=== PATIENT | female | born 1990 | race Caucasian/White ===

== ENCOUNTER 2022-01-02 13:50 | Emergency (ER) | payer OTHER, SELFPAY ==
[2022-01-02 13:51] VITALS: BP 146/90; PULSE 110; RESP 18; TEMP 36.6; O2SAT 98; BMI 29.0
--- NOTE | 2022-01-02 14:02 | RAD_ITS ---
STUDY: X-RAY CHEST REASON FOR EXAM: Female, 31 years old. Chest pain TECHNIQUE: Single AP portable view of the chest. COMPARISON: None. FINDINGS: EKG electrodes are seen. The lungs are clear and expanded. There is no demonstrated pleural abnormality. Normal size heart. Normal mediastinum and jose. Normal visualized pulmonary arteries. Normal visualized aortic arch and descending thoracic aorta. Normal visualized thoracic spine. Normal visualized ribs, clavicles, and shoulders. There is no demonstrated abnormality of the visualized soft tissue structures of the upper abdomen. RAD/Chest 1 View (Portable) IMPRESSION: Normal x-ray examination of the chest. Electronically Signed: Sin Carvajal MD at 15:02 EDT ,
--- NOTE | 2022-01-02 14:02 | EKG12_ITS ---
Test Reason : HIGH BP Blood Pressure : / mmHG Vent. Rate : 098 BPM Atrial Rate : 098 BPM P-R Int : 114 ms QRS Dur : 078 ms QT Int : 334 ms P-R-T Axes : 006 049 025 degrees QTc Int : 426 ms Normal sinus rhythm Normal ECG Confirmed by CHI RAMÍREZ, CONSUELO ([id number]), editor index VERITO ORTEGA ([id number]) on 01/05/2022 1:54:04 PM Referred By: CAROLYN Confirmed By:CONSUELO MIRELES MD
--- NOTE | 2022-01-02 14:12 | EDS_ITS ---
HPI History of Present Illness Chief Complaint: Shortness of Breath Narrative Narrative: 31-year-old female currently [address] Anderson and Dr. Mcknight presenting with feelings of malaise, shortness of breath since last evening. She states that this started abruptly. She denies any chest pain. She is not had a fever or cough. No nausea or vomiting. She denies any leg swelling currently and states her legs are actually improved over the last week. Patient's blood pressures have been in the 140s and 150s systolically since last evening. Patient has a history of eclampsia and her last she was induced due to her blood pressures. She not currently on a blood pressure medication. No history of DVT/PE. PFSH PFSH Allergy/AdvReac Type Severity Reaction Status Date / Time No Known Allergies Allergy Verified 01/02/22 13:53 Social History Smoking Status: Never smoker ROS ROS ED Constitutional Constitutional ED: Denies chills or fever(s) Eyes Eyes: Denies change in vision ENT ENT ED: Denies rhinorrhea or sore throat Cardiovascular Cardiovascular: Denies chest pain or palpitations Respiratory/Chest Respiratory/Chest: Reports dyspnea Gastrointestinal Gastrointestinal: Denies abdominal pain, nausea or vomiting Genitourinary Genitourinary ED: Denies dysuria or hematuria Musculoskeletal Musculoskeletal: Denies arthralgias Integumentary Denies abscess or rash Neurologic Neurologic: Reports headache(s) Psychiatric Psychiatric: Denies anxiety or depression EXAM Physical Exam Const Vital Signs: 01/02/22 13:51 01/02/22 14:37 01/02/22 14:37 Temperature 97.8 F Temperature Source Temporal Pulse Rate 110 H Respiratory Rate 18 Respiratory Effort Short of Breath Respiratory Depth Normal Respiratory Pattern Normal Blood Pressure 146/90 H Blood Pressure Mean 108 Pulse Ox 98 Oxygen Delivery Method Room Air Room Air Room Air Positive well nourished General Appearance ED: NAD; Negative for pallor HEENT Reports moist mucous membranes atraumatic Eyes PERRL and EOMs intact bilaterally General Eye ED: Negative for pale conjunctiva or scleral icterus Resp normal respiratory effort and clear to auscultation bilaterally Auscultation: Negative for rales, rhonchi or wheezes Cardio regular rhythm Rate: tachycardic GI non-tender GI Narrative: Gravid Extremity normal to inspection General Extremety ED: Negative for edema or tenderness General Extremity: Negative for edema Neuro oriented x3 and CN's II-XII intact bilaterally Sensorium / Orientation: alert, oriented to person, oriented to place and oriented to time Speech: speech normal Psych mental status grossly normal Attitude: No agitated Mood & Affect: Negative for anxious or tearful Skin General Skin Exam: Negative for jaundice or pallor MDM MDM MDM Narrative Medical decision making narrative: Patient presenting with hypertension and shortness of breath. She is currently 5 weeks . She not had any vaginal bleeding or loss of fluid. No urinary complaints. No fever, chills. She denies any chest pain. She states has had this before with her last . I have low suspicion for PE. She is not on any antihypertensives. Patient sent to the ER for evaluation. Upon arrival obtained an EKG which is sinus rhythm with a ventricular rate of 98 bpm without signs of ischemic change or dysrhythmia. Chest x-ray on my interpretation shows no acute cardiopulmonary process and radiologist agree. CBC shows a white blood cell count 11.5 which is marginal. Hemoglobin hematocrit are stable. Platelets normal at 250. Renal function and electrolytes within normal limits. LFTs are normal. High-sensitivity troponin is 18. Urinalysis negative for infection. Patient was discussed with Dr. Anderson and she recommended giving a dose of 30 mg of Procardia p.o. Patient had just received this when I went to reevaluate her and her blood pressure was already at 126/82. Patient feeling well at this point. All labs and findings were discussed with her. Dr. Anderson will have her be discharged in the emergency room and go down to OB triage to be monitored. Patient minimal to this. Impression: 1. Dyspnea 2. Preeclampsia 3. Generalized weakness 4. Hypertension 5. 35 weeks gestation Lab Data Attestation: I reviewed the patient's lab results. Labs: Laboratory Results - last 24 hr 01/02/22 01/02/22 01/02/22 14:05 14:05 14:20 WBC 11.5 H RBC 3.81 L Hgb 11.4 L Hct 33.4 L MCV 87.7 MCH 29.9 MCHC 34.1 RDW Std Deviation 43.3 RDW Coeff of Radha 13.8 Plt Count 250 MPV 9.5 Immature Gran % (Auto) 1.100 H Neut % (Auto) 75.0 H Lymph % (Auto) 15.5 L Stanton % (Auto) 7.3 Eos % (Auto) 0.8 Baso % (Auto) 0.3 Absolute Neuts (auto) 8.7 H Absolute Lymphs (auto) 1.79 Nucleated RBC % 0 Sodium 138 Potassium 3.5 Chloride 109 H Carbon Dioxide 22.0 Anion Gap 7 BUN 6 L Creatinine 0.79 Estim Creat Clear Calc 97.48 Est GFR (MDRD) Af Amer 109 Est GFR (MDRD) Non-Af 90 BUN/Creatinine Ratio 7.6 L Glucose 113 H Calcium 9.5 Total Bilirubin 0.30 Direct Bilirubin 0.10 AST 15 ALT 16 Alkaline Phosphatase 92 Troponin I High Sens 18 Total Protein 6.6 Albumin 2.9 L Globulin 3.7 Urine Color Straw Urine Clarity Sl. Cloudy Urine pH 7.0 Ur Specific [place] 1.005 Urine Protein Negative Urine Glucose (UA) Normal Urine Ketones Negative Urine Occult Blood Negative Urine Nitrite Negative Urine Bilirubin Negative Urine Urobilinogen Normal Ur Leukocyte Esterase 100 H Urine RBC 0 SEEN Urine WBC 0-5 SEEN Ur Squamous Epith Cells 0-5 SEEN Urine Bacteria 1+ Urine Mucus 0 SEEN Radiography Diagnostic Testing: Clinical Impression(s) from Imaging Studies Chest X-Ray 01/02/22 14:02 IMPRESSION: Normal x-ray examination of the chest. Electronically Signed: Sin Carvajal MD at 15:02 EDT Reading Location ID and State: [address] [place] [address] , Service support , Discharge Plan Triage Chief Complaint: Shortness of Breath ED Provider: Kp Welch Dx/Rx/DC Orders Instructions: ED Dyspnea, Gestational Hypertension Primary Care Provider: Care Physician,No Primary Referrals: Danii Anderson MD [Med Staff - Active Staff] - As soon as possible NOT,DEFINED [NON-STAFF] - Disposition Disposition: Home, Self Care
[2022-01-02 14:20] LABS: Absolute Lymphocyte Count 1.79 X10^3/uL (0.83-4.51); Absolute Neutrophil Count 8.7 X10^3/uL (2.0-7.7); Basophil# 0.03 X10^3/uL; Basophil% 0.3 % (0-1); Eosinophil# 0.09 X10^3/uL; Eosinophils% 0.8 % (0-5); Hematocrit 33.4 % (37-47); Hemoglobin 11.4 g/dL (12.0-15.0); Lymphocyte # 1.79 X10^3/ul (0.83-4.51); Lymphocyte % 15.5 % (19-41); Mean Corp Hgb Conc 34.1 g/dL (32-36); Mean Corpuscular Hgb 29.9 pg (27.0-32.0); Mean Corpuscular Volume 87.7 fL (81-99); Mean Platelet Vol. 9.5 fl (6.2-12.0); Monocyte# 0.84 X10^3/uL; Monocyte% 7.3 % (0-10); NRBC Flagged by Analyzer 0 % (0-5); Neutrophil # 8.65 X10^3/uL (2.7-7.7); Platelet Count 250 K/mm3 (150-450); RBC Distribution Width CV 13.8 % (11.6-14.6); RBC Distribution Width SD 43.3 fl (35.1-43.9); Red Blood Count 3.81 M/mm3 (4.2-5.4); White Blood Count 11.5 K/mm3 (4.4-11.0)
[2022-01-02 14:28] LABS: Mucous, Urine 0 SEEN /hpf (<or=2+); Red Blood Cells-Urine 0 SEEN /hpf (0-5)
[2022-01-02 14:29] LABS: Color, Urine Straw (Yellow); Glucose, Dipstick Normal (Normal); Ketone-Dipstick Negative (Negative); Leukocyte Esterase-Dipstick 100 /ul (Negative); Nitrite-Dipstick Negative (Negative); Occult Blood-Urine Negative /ul (Negative); Protein-Dipstick Negative (Negative); Specific Gravity, Urine 1.005 (1.002-1.030); Urine Bilirubin Dipstick Negative (Negative); Urine Clarity Sl. Cloudy (Clear); Urine Urobilinogen Normal (Normal)
--- NOTE | 2022-01-02 14:35 | ED.RN ---
PT 35 WEEKS PRESENTS TO ER WITH SOB AND HTN. PT BP 146/90. DR AVILA MADE AWARE AND SAID TO CALL [facility]. PER WP, DR RANDLE WANTS PT CHECKED INTO ER AND A PRE-ECLAMPSIA WORKUP DONE.
[2022-01-02 14:41] LABS: AST(SGOT) 15 U/L (15-37); Alanine Aminotransfer ALT/SGPT 16 U/L (13-56); Albumin, Serum 2.9 g/dL (3.2-5.0); Alkaline Phosphatase 92 U/L (45-117); Anion Gap 7 (5-15); BUN 6 mg/dL (7-18); BUN/Creat Ratio 7.6 RATIO (10-20); Calcium,Total 9.5 mg/dL (8.5-10.1); Chloride 109 mmol/L (98-107); Creatinine, Serum 0.79 mg/dL (0.55-1.02); EST Glomerular Filtration Rate 90 mL/min (>60); Est Glom Filt Rate - Afr Amer 109 mL/min (>60); Estimated Creatinine Clearance 97.48 ml/min; Globulin 3.7 g/dL (2.2-4.2); Glucose 113 mg/dL (74-106); Potassium 3.5 mmol/L (3.5-5.1); Protein, Total 6.6 g/dL (6.4-8.2); Sodium Level 138 mmol/L (136-145); Troponin-I HS 18 pg/mL (3.0-54.0)
[2022-01-02 14:54] LABS: Squamous Epithelial Cells - UA 0-5 SEEN /hpf (5-10)
[2022-01-02 14:55] LABS: Bacteria 1+ /hpf (None Seen); White Blood Cells 0-5 SEEN /hpf (0-5)
[2022-01-02] MEDS: NIFEdipine 30 MG Tablet PO (14:55)
[2022-01-02 15:33] VITALS: BP 126/82; PULSE 96; RESP 21; O2SAT 97
[2022-01-02 16:58] LABS: Protein, Urine (Random) 9.5 mg/dL (<11.9); Protein:Creat Ratio 531 mg/g CRE (0-200)
== END 2022-01-02 15:39 | disposition home or self-care (01) ==
PROVIDERS: Obstetrics & Gynecology; Emergency Provider Student in an Organized Health Care Education/Training Program; Visit Provider Student in an Organized Health Care Education/Training Program
DX: O11.4 Pre-existing hypertension with pre-eclampsia, complicating childbirth (principal); R53.1 Weakness; R06.00 Dyspnea, unspecified; Z3A.35 35 weeks gestation of pregnancy
CPT/HCPCS: 71045; 80048; 80076; 81001; 82570; 84156; 84484; 85025; 87811; 93005; 99285; A4216

== ENCOUNTER 2022-01-02 15:48 | Outpatient (CLI) | payer OTHER, SELFPAY ==
[2022-01-02 16:03] VITALS: BP 119/75; PULSE 95
[2022-01-02 16:05] VITALS: BP 122/74; PULSE 89
[2022-01-02 16:16] VITALS: BP 122/78; PULSE 99
[2022-01-02 16:29] VITALS: BMI 29.3
[2022-01-02 16:31] VITALS: BP 121/78; PULSE 88
[2022-01-02 16:47] VITALS: BP 118/72; PULSE 89
--- NOTE | 2022-01-02 16:58 | OB.TRI.NOTE ---
HPI - General General Date of Admission: 01/02/22 Date of Service: 01/02/22 Chief Complaint: high BP HPI Narrative RITA DELGADO, is a 31 F 2 para 1 presents at 35-4/7 weeks gestation from the emergency room. She called the office today and complained of shortness of breath lightheadedness and significantly elevated blood pressure. She was sent to the emergency room because of her shortness of breath. She had a rule out PE and CHF work-up there. Blood pressures were elevated but in the mild range. Patient received 1 dose of Procardia but actually her blood pressure had come down to the normotensive range at that point. She denies any headache or visual changes she just felt kind of weak and some malaise. She reports that she felt similar to how she did when her blood pressure started going up with her previous . She denies any vaginal bleeding or leaking of fluid. She has good movement. Maternal Data Information Final HASEEB: 02/12/22 Gestational age: 35 4/7 [facility] Home Medications Aspir-81 81 mg PO/SL DAILY 01/02/22 [History Last Taken 01/01/22 21:00] 1 tab PO/SL DAILY 01/02/22 [History Last Taken 01/01/22 21:00] docusate sodium 50 mg capsule 50 mg PO DAILY 01/02/22 [History Last Taken 01/01/22 21:00] Allergy/AdvReac Type Severity Reaction Status Date / Time No Known Allergies Allergy Verified 01/02/22 16:27 Social History Smoking Status: Never smoker Physical Exam Narrative Awake, alert, no acute distress, trace edema of lower extremity. 2+ DTRs no clonus. Abdomen is soft, nontender and gravid NST FHR Rate Baby A Baseline: 140 Variability:: Moderate Accelerations:: 15 x 15 Decelerations:: None NST Reactive:: Yes FHR Category:: Category I Uterine Activity:: quiet Assessment & Plan (1) 35 weeks gestation of : PLAN: 31-year-old 2 para 1 at 35-4/7 weeks gestation. Acute respiratory and cardiac issues were ruled out in the emergency room. Patient had normotensive blood pressures here. No evidence of preeclampsia with severe features. Her urine protein creatinine ratio was elevated which suggest preeclampsia without severe features. Return if symptoms or blood pressures in severe range. Otherwise follow-up in the office for second betamethasone dose. We will give a dose of betamethasone today. Will need a growth ultrasound and close follow-up and monitoring. Patient is in agreement with this plan. (2) High risk multigravida in third trimester: (3) Pre-eclampsia in third trimester:
--- NOTE | 2022-01-02 17:05 | NURSING ---
upon discharging patient. Dr Anderson would like have pt get a dose of celestone and follow up in office tomorrow for repeat blood pressure and bioscan.
[2022-01-02] MEDS: Betamethasone/Betamethasone 30 MG/5 ML Vial 12 MG IM (17:20)
== END 2022-01-02 16:59 | disposition home or self-care (01) ==
LOC: WPOUT 15:55 → WP 15:55
PROVIDERS: Visit Provider Obstetrics & Gynecology
DX: O09.93 Supervision of high risk pregnancy, unspecified, third trimester (principal); O14.93 Unspecified pre-eclampsia, third trimester; R06.02 Shortness of breath; R03.0 Elevated blood-pressure reading, without diagnosis of hypertension; R42 Dizziness and giddiness; Z3A.35 35 weeks gestation of pregnancy
CPT/HCPCS: 59025; 59050; 96372; 99218; G0378; J0702

== ENCOUNTER 2022-01-12 09:30 | Inpatient (IN) | payer OTHER, SELFPAY ==
--- NOTE | 2022-01-09 12:38 | HP.PCM_ITS ---
History and Physical Date of Admission: 01/12/22 HPI: The patient is a 31 year old female presenting for pre-operative visit. She is scheduled for , for previous c/s and preeclampsia without severe features on 01/12/22. Procedure discussed along with risks, benefits and complications. Other alternatives discussed for management. Consent form signed? Yes. ? ? PAST MEDICAL HISTORY PAST MEDICAL HISTORY Diagnosis Date ? Gestational hypertension ? ? Placental abruption ? ? Pre-eclampsia in third trimester 01/03/2022 ? ? PAST SURGICAL HISTORY PAST SURGICAL HISTORY Procedure Laterality Date ? SNGL ? 12/05/2019 ? PAST SURGICAL HISTORY OF ? ? ? sebaceous nevus on scalp ? TONSILLECTOMY & ADENOIDECTOMY AGE 12/> ? CURRENT MEDICATIONS Current Outpatient Medications Medication Sig Dispense Refill ? aspirin, enteric coated (ECOTRIN LOW STRENGTH) 81 mg EC tablet Take 1 tablet by mouth once daily. ? ? ? vit [id number] (PRENATE MINI, FERR ASP GLYCIN,) 18-1-350 mg cap Take 1 Dose by mouth once daily. 30 capsule 12 ? Breast Pump Use as directed (Patient not taking: No sig reported) 1 Each 0 ? No current facility-administered medications for this visit. ? ? ALLERGIES: Patient has no known allergies. ? PERSONAL HISTORY: SOCIAL HISTORY Social History ? Tobacco Use ? Smoking status: Never ? Smokeless tobacco: Never Vaping Use ? Vaping Use: Never used Substance Use Topics ? Alcohol use: No ? Drug use: No ? FAMILY HISTORY: FAMILY HISTORY FAMILY HISTORY Problem Relation Age of Onset ? No Known Problems Mother ? ? Asthma Father ? ? No Known Problems Brother ? ? No Known Problems Brother ? ? Cancer Maternal Grandmother ? ? Heart Maternal Grandfather ? ? Heart Paternal Grandfather ? ? ? REVIEW OF SYMPTOMS: GENERAL: denies fevers or chills ENDOCRINOLOGY: has not been on steroids Cardiology : denies palpitations or chest pain Respiratory: denies SOB or cough Hematology: denies history of prolonged bleeding or easy bruising or VTE Allergy: Denies history of personal or family history of allergy to anesthesia ? PHYSICAL EXAMINATION: ? VITALS: Last menstrual period 04/28/2021. ? GENERAL: The patient is well nourished, well hydrated in no acute distress. , The patient is oriented to time, place, and person. NECK: Supple. No lynphadenopathy, normal thyroid, no thyromegaly. LUNGS: Clear to auscultation bilaterally. no wheezes, rhonchi or rales HEART: Regular rate and rhythm, Normal heart sounds, and No murmurs or gallops ? IMPRESSION: Estimated Date of Delivery: 02/02/22 ? PLAN: The risks/benefits/alternatives and personal involved for the planned c- section were reviewed with the patient. Her questions were answered to her satisfaction and she desires to proceed. Consent was signed. I reviewed with her postop instructions and expectations. ? ? I have reviewed and updated past medical and surgical history, medications and allergies Assessment & Plan Assessment/Plan (1) 37 weeks gestation of : (2) Pre-eclampsia in third trimester: (3) High risk multigravida in third trimester: (4) Previous delivery affecting :
[2022-01-12] VITALS (15 sets, daily range): BP systolic 104–128; BP diastolic 56–78; PULSE 81–98; RESP 16–18; TEMP 36.4–37.1; O2SAT 16–100; BMI 28.8
[2022-01-12] MEDS: Lactated Ringers 1,000 ML 999 ML IV (10:00)
[2022-01-12 10:14] LABS: Absolute Lymphocyte Count 1.88 X10^3/uL (0.83-4.51); Basophil# 0.02 X10^3/uL; Basophil% 0.2 % (0-1); Eosinophil# 0.06 X10^3/uL; Eosinophils% 0.5 % (0-5); Hematocrit 33.6 % (37-47); Hemoglobin 11.4 g/dL (12.0-15.0); Lymphocyte # 1.88 X10^3/ul (0.83-4.51); Lymphocyte % 16.3 % (19-41); Mean Corp Hgb Conc 33.9 g/dL (32-36); Mean Corpuscular Hgb 30.1 pg (27.0-32.0); Mean Corpuscular Volume 88.7 fL (81-99); Mean Platelet Vol. 9.8 fl (6.2-12.0); Monocyte# 0.47 X10^3/uL; Monocyte% 4.1 % (0-10); NRBC Flagged by Analyzer 0 % (0-5); Neutrophil # 8.95 X10^3/uL (2.7-7.7); Neutrophil % 77.4 % (47-70); Platelet Count 234 K/mm3 (150-450); RBC Distribution Width SD 44.7 fl (35.1-43.9); Red Blood Count 3.79 M/mm3 (4.2-5.4); White Blood Count 11.6 K/mm3 (4.4-11.0)
[2022-01-12] MEDS: Lactated Ringers 1,000 ML 150 ML IV (10:59)
[2022-01-12] MEDS: Acetaminophen 500 MG Tablet 1000 MG PO ×2 (11:01→17:57)
[2022-01-12] MEDS: Sodium Citrate/Citric Acid 30 ML UDC PO (11:52)
[2022-01-12] MEDS: Cefazolin 2 GM in 0.9% Normal Saline 100 ML IV (12:06)
--- NOTE | 2022-01-12 12:56 | OP.PCM_ITS ---
Assessment & Plan (1) 37 weeks gestation of : (2) Previous delivery affecting : (3) Pre-eclampsia in third trimester: Maternal Data Information Final HASEEB: 02/02/22 Gestational age: 37 0/7 Details Operative Information Date of Procedure: 01/12/22 Pre-Operative Diagnosis: preeclampsia without severe features Indications for : Repeat Elective Classification: Scheduled Procedure Type: low transverse equal opportunity assistant #1: Noemí Dumont equal opportunity assistant #2: Lazaro GRANADO Type of Anesthesia: Spinal Anesthesiologist: Anuj Wick Special Medications: duramorph Antibiotic Given: Ancef 2 grams IV x1 Drain: Salazar to straight drain Estimated Blood Loss: 800 Fluids Replaced: 1000 Procedure Start Time: 12:27 Procedure Stop Time: 13:01 Time of Delivery: 12:31 Findings Description of Procedure: The patient was taken to the operating room. She was prepped and draped in the dorsal supine position with a leftward tilt. A Pfannenstiel skin incision was made approximately 2 cm above the symphysis pubis and carried through to underlying layer fascia with the scalpel. The fascia was incised incised in the midline and extended laterally with the Neumann scissors. The fascia was dissected off the rectus muscles with blunt and sharp dissection. The rectus muscles were in the midline and the peritoneum was entered bluntly. The peritoneal incision was stretched and the bladder blade was placed. The uterine incision was made in a low transverse fashion with the scalpel and extended superiorly and inferiorly with blunt dissection. The amniotic membranes were ruptured bluntly and clear amniotic fluid returned. The infant's head was brought to the incision in the flexed position and delivered without difficulty. The remainder of the was delivered with gentle traction and fundal pressure in the standard fashion. The mouth and nares were bulb suctioned. The cord was clamped and cut as the infant was stimulated. Cord clamping was delayed. The infant was handed off to the waiting nursing staff. The placenta was delivered with fundal massage and gentle traction in the standard fashion. The uterus was exteriorized and cleared of all clots and debris. The cervix was dilated with a ring forcep. The uterine incision was closed with #1 Vicryl in a running locked fashion. A second layer of the same suture was used in an imbricating fashion. Several [id number] #1 Vicryl sutures were needed to obtain hemostasis and some bleeding sinuses. The incision was examined and was found to be hemostatic. The uterus was placed back into the peritoneal cavity and hemostasis was again confirmed. The rectus muscles were examined and any bleeding was Bovie caute rized. The parietal peritoneum and rectus muscles were closed en bloc with an 0 Vicryl running suture. The surgical teams outer gloves were then changed. The rectus fascia was examined and any bleeding was Bovie cauterized and the rectus fascia was closed with 1 Vicryl suture in a running standard fashion. The subcutaneous tissue was examining and any bleeding was Bovie cauterized. The subcutaneous tissue was reapproximated with 3-0 Vicryl suture. The skin was closed in a subcuticular fashion by the CHEMICAL RADIATION TECHNICIAN with me present in the labor and delivery suite. I performed the remainder of the procedure with assistance. All sponge, lap, and needle counts were correct. The patient was taken to her room for recovery in a stable condition. Presentation: Positive for Vertex Amniotic Membrane Rupture Type: Artificial Amniotic Fluid Description: Clear Placental Delivery Description: Expressed Placenta Disposition: [facility] Specimen(s) Sent to Pathology: none Cord Vessel Description: 3 Vessels Cord Entanglement: None A Gender: Female (Meenakshi 6lb 14 oz) (1 minute): 9 (5 minute): 9 Delayed Cord Clamping: Yes Complications Complications: none Admit VTE Documentation VTE Present on Admission: No VTE Mechan Device Prophylaxis: SCD's VTE Pharm Prophylaxis Ordered: No Reason Prophylaxis Not Ordered: Procedure Not Indicated
[2022-01-12] MEDS: Oxytocin 30 units/NS 500 ml 30 UNITS/500 ML IV.SOLN 167 UNITS IV (13:27)
[2022-01-12] MEDS: Ketorolac 30 MG/ML Syringe IV ×2 (13:35→19:50)
--- NOTE | 2022-01-12 15:58 | NURSING ---
Electrocautery machine [id number]
[2022-01-12] MEDS: Ondansetron 4 MG/2 ML Vial IV (16:36)
[2022-01-12] MEDS: Lactated Ringers 1,000 ML 100 ML IV (16:39)
[2022-01-13 00:45] VITALS: BP 90/50; PULSE 86; RESP 16; TEMP 36.8; O2SAT 97
[2022-01-13] MEDS: 0.9% Saline Lock 10 ML Syringe IV ×2 (01:00→06:49)
[2022-01-13] MEDS: Ketorolac 30 MG/ML Syringe IV ×2 (01:00→06:49)
[2022-01-13] MEDS: Acetaminophen 500 MG Tablet 1000 MG PO ×4 (01:00→18:32)
[2022-01-13 04:40] VITALS: BP 94/52; PULSE 77; RESP 16; TEMP 36.3; O2SAT 98
[2022-01-13 05:25] LABS: Hematocrit 26.6 % (37-47); Mean Corp Hgb Conc 33.8 g/dL (32-36); Mean Corpuscular Hgb 30.2 pg (27.0-32.0); Mean Corpuscular Volume 89.3 fL (81-99); Mean Platelet Vol. 9.5 fl (6.2-12.0); Platelet Count 194 K/mm3 (150-450); RBC Distribution Width CV 14.2 % (11.6-14.6); RBC Distribution Width SD 45.8 fl (35.1-43.9); Red Blood Count 2.98 M/mm3 (4.2-5.4); White Blood Count 14.9 K/mm3 (4.4-11.0)
[2022-01-13 08:52] VITALS: BP 116/73; PULSE 89; RESP 16; TEMP 36.6; O2SAT 98
[2022-01-13] MEDS: Senna/Docusate Sodium 1 Tablet PO (08:59)
--- NOTE | 2022-01-13 09:40 | PCM.PN.OB ---
Subjective Subjective Doing well per patient and nursing staff. Ambulating and taking PO without difficulty. Voiding and passing flatus. Pain controlled. , services for assistance. Denies headache, visual changes, chest pain, shortness of breath, leg pain or increased bleeding. Lochia normal. Objective Data Objective Data Vital Signs: Vital Signs Temp Pulse Resp BP Pulse Ox O2 Del Method 97.9 F 89 16 116/73 98 Room Air 01/13/22 08:52 01/13/22 08:52 01/13/22 08:52 01/13/22 08:52 01/13/22 08:52 01/13/22 08:52 Oxygen Delivery Method Room Air Weight: 178 lb 9.191 oz Body Mass Index (BMI) 28.8 Intake & Output: Intake and Output for Last 24 Hours 01/11/22 01/12/22 01/13/22 23:59 23:59 23:59 Intake Total 3657.5 / 3657.5 Output Total 850 / 850 1100 / 1100 Balance 2807.5 / 2807.5 -1100 / -1100 Lab / Micro Data Result Diagrams: 01/13/22 05:20 Labs: Laboratory Results - last 24 hr 01/12/22 10:00: WBC 11.6 H, RBC 3.79 L, Hgb 11.4 L, Hct 33.6 L, MCV 88.7, MCH 30.1, MCHC 33.9, RDW Std Deviation 44.7 H, RDW Coeff of Radha 14.0, Plt Count 234, MPV 9.8, Immature Gran % (Auto) 1.500 H, Neut % (Auto) 77.4 H, Lymph % (Auto) 16.3 L, [place] % (Auto) 4.1, Eos % (Auto) 0.5, Baso % (Auto) 0.2, Absolute Neuts (auto) 9.0 H, Absolute Lymphs (auto) 1.88, Nucleated RBC % 0 01/12/22 10:00: Blood Type A POSITIVE, Antibody Screen NEGATIVE 01/13/22 05:20: WBC 14.9 H, RBC 2.98 L, Hgb 9.0 L, Hct 26.6 L, MCV 89.3, MCH 30.2, MCHC 33.8, RDW Std Deviation 45.8 H, RDW Coeff of Radha 14.2, Plt Count 194, MPV 9.5 ROS Constitutional Constitutional: Reports systems reviewed and no addt'l complaints, except as documented; Denies headache(s) Eyes Eyes: Denies acute decrease in peripheral vision, blurry vision or change in vision ENT HEENT: Reports systems reviewed and no addt'l complaints, except as documented Cardiovascular Cardiovascular: Denies chest pain or dizziness Respiratory/Chest Respiratory/Chest: Denies cough, dyspnea, dyspnea on exertion, shortness of breath at rest or shortness of breath with exertion Gastrointestinal Gastrointestinal: Denies abdominal pain, diarrhea, nausea or vomiting Genitourinary Genitourinary: Denies abdominal discomfort Musculoskeletal Musculoskeletal: Denies limited range of motion Integumentary Integumentary: Reports systems reviewed and no addt'l complaints, except as documented Neurologic Neurologic: Reports systems reviewed and no addt'l complaints, except as documented Psychiatric Psychiatric: Reports systems reviewed and no addt'l complaints, except as documented Endocrine Endocrinology: Reports systems reviewed and no addt'l complaints, except as documented Hematologic/Lymphatic Hematologic/Lymphatic: Reports systems reviewed and no addt'l complaints, except as documented Allergic/Immunologic Allergic/Immunologic: Reports systems reviewed and no addt'l complaints, except as documented Physical Exam Const alert and oriented x3 General Appearance: cooperative Orientation / Consciousness: awake, oriented to person, oriented to place and oriented to time Exam Limitations: no limitations HEENT normocephalic Head and Scalp: normal to inspection, normocephalic and atraumatic Face and Sinus: normal facial exam Eyes General Eye: normal appearance of both eyes Neck full ROM Chest Chest: symmetrical chest wall rise Resp normal respiratory effort and normal air movement Auscultation: clear to auscultation bilaterally Cardio regular rate, regular rhythm, S1 normal heart sound, S2 normal heart sound, no murmurs, no rub, no gallops and no clicks GI normal to inspection, nondistended, normoactive bowel sounds and non-tender GI Narrative: Fundus firm 2 below U. Dressing dry and intact Bladder / Kidney Exam: no CVA tenderness Back/Spine normal ROM Extremity normal to inspection and full ROM Skin no rashes or lesions noted Neuro oriented x3, CN's II-XII intact bilaterally and moves all extremities Sensorium / Orientation: awake, alert and oriented to person Motor Exam: clonus absent Deep Tendon Reflexes: Rt Patellar (L4): 2+ and Lt Patellar (L4): 2+ Assessment & Plan (1) Pre-eclampsia in third trimester: (2) 37 weeks gestation of : (3) Previous delivery affecting : PLAN: Plan 1) POD #1 Repeat Section 2) Preeclampsia without severe features. BP normal range. Asymptomatic 3) Hgb 9.0, will start Ferrous Sulfate 325mg PO once daily 4) I&Os 5) Pain management
[2022-01-13 12:51] VITALS: BP 104/63; PULSE 89; RESP 16; TEMP 36.2; O2SAT 98
[2022-01-13] MEDS: Ferrous Sulfate 325 MG Tablet PO (12:55)
[2022-01-13] MEDS: Ibuprofen 600 MG Tablet PO ×2 (12:55→18:32)
[2022-01-13 20:00] VITALS: BP 107/66; PULSE 78; RESP 16; TEMP 37; O2SAT 98
[2022-01-13] MEDS: oxyCODONE 5 MG Tablet PO (23:53)
[2022-01-14] MEDS: Acetaminophen 500 MG Tablet 1000 MG PO ×2 (00:33→06:59)
[2022-01-14] MEDS: Ibuprofen 600 MG Tablet PO ×2 (00:33→06:59)
[2022-01-14 01:55] VITALS: BP 99/51; PULSE 69; RESP 16; TEMP 36.3; O2SAT 97
[2022-01-14] MEDS: oxyCODONE 5 MG Tablet PO (08:24)
[2022-01-14] MEDS: Senna/Docusate Sodium 1 Tablet PO (08:27)
[2022-01-14 08:31] VITALS: BP 109/71; PULSE 93; RESP 16; TEMP 36.8; O2SAT 97
--- NOTE | 2022-01-14 09:25 | PCM.PN.OB ---
Subjective Subjective Doing well per patient and nursing staff. Ambulating and taking PO without difficulty. Voiding and passing flatus. Pain controlled. , services for assistance. Denies headache, visual changes, chest pain, shortness of breath, leg pain or increased bleeding. Lochia normal. Objective Data Objective Data Vital Signs: Vital Signs Temp Pulse Resp BP Pulse Ox O2 Del Method 98.3 F 93 16 109/71 97 Room Air 01/14/22 08:31 01/14/22 08:31 01/14/22 08:31 01/14/22 08:31 01/14/22 08:31 01/14/22 08:31 Oxygen Delivery Method Room Air Weight: 178 lb 9.191 oz Body Mass Index (BMI) 28.8 Intake & Output: Intake and Output for Last 24 Hours 01/12/22 01/13/22 01/14/22 23:59 23:59 23:59 Intake Total 3657.5 / 3657.5 Output Total 850 / 850 1100 / 1100 Balance 2807.5 / 2807.5 -1100 / -1100 Lab / Micro Data Result Diagrams: 01/13/22 05:20 ROS Constitutional Constitutional: Reports systems reviewed and no addt'l complaints, except as documented; Denies headache(s) Eyes Eyes: Denies acute decrease in peripheral vision, blurry vision or change in vision ENT HEENT: Reports systems reviewed and no addt'l complaints, except as documented Cardiovascular Cardiovascular: Denies chest pain or dizziness Respiratory/Chest Respiratory/Chest: Denies cough, dyspnea, dyspnea on exertion, shortness of breath at rest or shortness of breath with exertion Gastrointestinal Gastrointestinal: Denies abdominal pain, diarrhea, nausea or vomiting Genitourinary Genitourinary: Denies abdominal discomfort or movement Musculoskeletal Musculoskeletal: Denies limited range of motion Integumentary Integumentary: Reports systems reviewed and no addt'l complaints, except as documented Neurologic Neurologic: Reports systems reviewed and no addt'l complaints, except as documented Psychiatric Psychiatric: Reports systems reviewed and no addt'l complaints, except as documented Endocrine Endocrinology: Reports systems reviewed and no addt'l complaints, except as documented Hematologic/Lymphatic Hematologic/Lymphatic: Reports systems reviewed and no addt'l complaints, except as documented Allergic/Immunologic Allergic/Immunologic: Reports systems reviewed and no addt'l complaints, except as documented Physical Exam Const alert and oriented x3 General Appearance: cooperative Orientation / Consciousness: awake, oriented to person, oriented to place and oriented to time Exam Limitations: no limitations HEENT normocephalic Head and Scalp: normal to inspection, normocephalic and atraumatic Face and Sinus: normal facial exam Eyes General Eye: normal appearance of both eyes Neck full ROM Chest Chest: symmetrical chest wall rise Resp normal respiratory effort and normal air movement Auscultation: clear to auscultation bilaterally Cardio regular rate, regular rhythm, S1 normal heart sound, S2 normal heart sound, no murmurs, no rub, no gallops and no clicks GI normal to inspection, nondistended, normoactive bowel sounds and non-tender appearance of the vagina normal Bladder / Kidney Exam: no CVA tenderness Back/Spine normal ROM Extremity normal to inspection and full ROM Skin no rashes or lesions noted Neuro oriented x3, CN's II-XII intact bilaterally and moves all extremities Sensorium / Orientation: awake, alert and oriented to person Motor Exam: clonus absent Deep Tendon Reflexes: Rt Patellar (L4): 2+ and Lt Patellar (L4): 2+ Assessment & Plan (1) S/P repeat low transverse : (2) Acute blood loss anemia: (3) Pre-eclampsia: PLAN: Plan 1) POD #2 repeat LTCS 2) Preeclampsia, blood pressure stable without medication. Asymptomatic 3) Pain management 4) I&Os 5) anemia, ferrous sulfate 6) follow up in 2 week for incision check and 6 week for PP visit 7) D/C home
--- NOTE | 2022-01-14 09:43 | PCM.DC.SUM ---
Providers Date of Admission: 01/12/22 Primary Care Physician: Mariya Primary Care Phys Reason For Visit: REPEAT Diagnosis Discharge Diagnosis (1) S/P repeat low transverse : Status: Acute Code(s): Z98.891 - History of uterine scar from previous surgery (2) Acute blood loss anemia: Status: Acute Code(s): D62 - Acute posthemorrhagic anemia (3) Pre-eclampsia: Status: Acute Code(s): O14.90 - Unspecified pre-eclampsia, unspecified trimester Plan 1) POD #2 repeat LTCS 2) Preeclampsia, blood pressure stable without medication. Asymptomatic 3) Pain management 4) I&Os 5) anemia, ferrous sulfate 6) follow up in 2 week for incision check and 6 week for PP visit 7) D/C home Medications at Discharge Home Medications 1 tab PO/SL DAILY 01/02/22 docusate sodium 50 mg capsule 100 mg PO DAILY PRN Constipation #60 caps 01/14/22 ferrous sulfate 325 mg (65 mg iron) tablet (FeroSul) 325 mg PO DAILY@1200 #30 tabs 01/14/22 oxycodone 5 mg tablet 5 mg PO Q6H 7 days #20 tabs 01/14/22 Hospital Course Summary of Care Provided Hospital Course: Presented on 01/12/22 for repeat LTCS with preeclampsia. Hospital course uncomplicated. acute blood loss anemia. Discharge home on POD#2 Weight / BMI Weight Weight: 178 lb 9.191 oz Body Mass Index (BMI) 28.8 ABG / Lab / Microbiology Data Result Diagrams: 01/13/22 05:20 Meaningful Use Info Meaningful Use Diagnoses (Choose all that apply): None applicable Discharge Plan Admission Admit Date/Time: 01/12/22 09:30 Primary Reason for Your Visit: Repeat section, preeclampsia Attending Provider: Danii Anderson Primary Care Provider: Care Physician,No Primary Instructions Patient Instructions: After a Discharge Orders/Prescriptions Prescriptions: New ferrous sulfate [FeroSul] 325 mg (65 mg iron) Tablet 325 mg PO DAILY@1200 Qty: 30 0RF oxycodone 5 mg Tablet 5 mg PO Q6H 7 Days Qty: 20 0RF Continued 1 tab PO/SL DAILY Changed docusate sodium 50 mg Capsule 100 mg PO DAILY PRN (Reason: Constipation) Qty: 60 0RF Discontinued Aspir-81 81 mg PO/SL DAILY Referrals / Follow Up: Care Physician,No Primary [Primary Care Provider] - Disposition Disposition (needs filled in before D/C Order can be placed): Home, Self Care
== END 2022-01-14 10:00 | disposition home or self-care (01) | DRG 787 ==
PROVIDERS: Admitting Provider Obstetrics & Gynecology; Visit Provider Obstetrics & Gynecology
PROC: 10D00Z1 Extraction of Products of Conception, Low, Open Approach (ICD-10-PCS; CPT 59514; principal; 2022-01-12 11:45)
DX: O14.04 Mild to moderate pre-eclampsia, complicating childbirth (principal); D62 Acute posthemorrhagic anemia; K21.9 Gastro-esophageal reflux disease without esophagitis; O90.81 Anemia of the puerperium; O34.219 Maternal care for unspecified type scar from previous cesarean delivery; Z79.82 Long term (current) use of aspirin; Z79.899 Other long term (current) drug therapy; Z3A.37 37 weeks gestation of pregnancy; Z37.0 Single live birth
CPT/HCPCS: 59050; 85025; 85027; 86850; 86900; 86901; 99218; J7120; A4216; G0378; J2405

== ENCOUNTER 2023-05-26 18:47 | Outpatient (CLI) | payer OTHER, SELFPAY ==
--- OUTSIDE RECORDS SUMMARY | 2023-05-26 18:53 | XMS RPT_ITS | CCD ---
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 Name Role Phone Aria Yap MD Primary Care Provider MARSHALL FOSTER Attending Unavailable YAP, ARIA K Primary Care Unavailable YAP, ARIA K Primary Care Unavailable PARVIN RANDLE Attending Unavailable YAP, ARIA K Primary Care Unavailable WISWELL, JUAN LUIS Referring Unavailable YAP, ARIA K Primary Care Unavailable YAP, ARIA K Primary Care Unavailable WISWELL, JUAN LUIS Referring Unavailable YAP, ARIA K Primary Care Unavailable WISWELL, JUAN LUIS Referring Unavailable NEYJACK PRATT Attending Unavail able YAP, ARIA K Primary Care Unavailable NEYHART GUANAKO GRANADORE Referring Unavail able YAP, ARIA K Primary Care Unavailable NEYJACK PRATT Attending Unavail able YAP, ARIA K Primary Care Unavailable NEYNELLAT GUANAKO GRANADORE Referring Unavail able PARVIN RANDLE Referring Unavailable YAP, ARIA K Primary Care Unavailable WISWELL, JUAN LUIS Attending Unavailable YAP, ARIA K Primary Care Unavailable PARVIN RANDLE Attending Unavailable YAP, ARIA K Primary Care Unavailable WISWELL, JUAN LUIS Referring Unavailable YAP, ARIA K Primary Care Unavailable NEYHART GUANAKO GRANADORE Referring Unavail able YAP, ARIA K Primary Care Unavailable NEYNELLAT VANNESA JACK Referring Unavail able PARVIN RANDLE Attending Unavailable YAP, ARIA K Primary Care Unavailable NEJACK SANTIAGO Attending Unavail able YAP, ARIA K Primary Care Unavailable PARVIN RANDLE Attending Unavailable YAP, ARIA K Primary Care Unavailable NEYNELLAT GUANAKO GRANADORE Referring Unavail able YAP, ARIA K Primary Care Unavailable YAP, ARIA K Primary Care Unavailable PARVIN RANDLE Attending Unavailable Medications Completed/Discontinued Medications Medication Drug Class(es) Dates Sig (Normalized) Sig (Original) aspirin 81 mg delayed release oral tablet (20 sources) Platelet Aggregation Inhibitor, Nonsteroidal Anti-inflammatory Drug Start: 07-24-2021 End: 01-30-2022 take 1 tablet by mouth once daily aspirin, enteric coated (ECOTRIN LOW STRENGTH) 81 mg EC tablet Indications: 12 weeks gestation of , with history of section, antepartum , Encounter for screening of mother Take 1 tablet by mouth once daily. 0 07/24/2021 01/30/2022 Discontinued Problems Active Problems Problem Classification Problem Date Documented Da te Episodic/Chronic Diabetes or abnormal glucose tolerance complicating ; childbirth; or the puerperium (6 sources) Abnormal glucose level; Translations: [Abnormal glucose complicating ] Onset: 03-28-2023 03-28-2023 Episodic Immunizations and screening for infectious disease (2 sources) Requires diphtheria, tetanus and pertussis vaccination; Translations: [Encounter for immunization] Episodic Other complications of (7 sources) High risk ; Translations: [Supervision of high risk , unspecified, second trimester] Episodic Residual codes; unclassified (1 source) Gestation period, 16 weeks; Translations: [16 weeks gestation of ] Episodic Residual codes; unclassified (2 sources) Gestation period, 20 weeks; Translations: [20 weeks gestation of ] Episodic Residual codes; unclassified (1 source) Gestation period, 24 weeks; Translations: [24 weeks gestation of ] Episodic Residual codes; unclassified (1 source) Gestation period, 28 weeks; Translations: [28 weeks gestation of ] Episodic Residual codes; unclassified (1 source) Gestation period, 29 weeks; Translations: [29 weeks gestation of ] Episodic Residual codes; unclassified (2 sources) Gestation period, 32 weeks; Translations: [32 weeks gestation of ] Episodic Residual codes; unclassified (2 sources) Gestation period, 34 weeks; Translations: [34 weeks gestation of ] Episodic Residual codes; unclassified (1 source) Gestation period, 35 weeks; Translations: [35 weeks gestation of ] Episodic Residual codes; unclassified (3 sources) Gestation period, 36 weeks; Translations: [36 weeks gestation of ] Episodic Residual codes; unclassified (1 source) Gestation period, 11 weeks; Translations: [11 weeks gestation of ] 12-05-2022 Episodic Residual codes; unclassified (1 source) Gestation period, 19 weeks; Translations: [19 weeks gestation of ] 01-30-2023 Episodic Residual codes; unclassified (1 source) Gestation period, 27 weeks; Translations: [27 weeks gestation of ] 03-27-2023 Episodic Residual codes; unclassified (1 source) 23 weeks gestation of ; Translations: [23 weeks gestation of ] Onset: 03-27-2023 Episodic Past or Other Problems Problem Classification Problem Date Documented Date Episodic/Chronic Hypertension complicating ; childbirth and the puerperium (20 sources) Pre-eclampsia; Translations: [Unspecified pre-eclampsia, third trimester] Onset: 01-03-2022 Episodic Other complications of (20 sources) Nausea and vomiting; Translations: [Vomiting of , unspecified] Onset: 06-30-2021 06-30-2021 Episodic Other complications of (12 sources) History of pre-eclampsia; Translations: [Supervision of with other poor reproductive or obstetric history, unspecified trimester] Onset: 11-01-2022 11-01-2022 Episodic Other complications of (1 source) Supervision of high risk , unspecified, second trimester; Translations: [Supervision of high risk in second trimester] Onset: 01-30-2023 Episodic Other complications of (1 source) Maternal care for other known or suspected poor growth, unspecified trimester, not applicable or unspecified; Translations: [ affected by intrauterine growth restriction (IUGR)] Onset: 12-05-2022 Episodic Other complications of (1 source) Supervision of with other poor reproductive or obstetric history, unspecified trimester; Translations: [H/O pre-eclampsia in prior , currently ] Onset: 11-01-2022 Episodic Other infections; including parasitic (20 sources) Personal history of other infectious and parasitic diseases; Translations: [History of COVID-19] Onset: 06-15-2021 06-15-2021 Episodic Other and delivery including normal (10 sources) Normal ; Translations: [Encounter for supervision of other normal , second trimester] Onset: 11-05-2022 Episodic Other screening for suspected conditions (not mental disorders or infectious disease) (4 sources) Patient encounter status; Translations: [Encounter for other specified screening] Onset: 12-05-2022 Episodic Previous (20 sources) ; Translations: [Maternal care for unspecified type scar from previous delivery] Onset: 06-15-2021 Episodic Residual codes; unclassified (20 sources) History of gestational hypertension; Translations: [Personal history of other complications of , childbirth and the puerperium] Onset: 06-15-2021 06-15-2021 Episodic Residual codes; unclassified (20 sources) Family history of fragile X syndrome; Translations: [Family history of other congenital malformations, deformations and chromosomal abnormalities] Onset: 06-15-2021 06-15-2021 Episodic Residual codes; unclassified (10 sources) Family history of cystic fibrosis; Translations: [Family history of other endocrine, nutritional and metabolic diseases] Onset: 11-01-2022 11-01-2022 Episodic Residual codes; unclassified (1 source) Personal history of other complications of , childbirth and the puerperium; Translations: [History of pre-eclampsia] Onset: 12-05-2022 Episodic Urinary tract infections (20 sources) Urinary tract infection caused by Enterococcus; Translations: [Urinary tract infection, site not specified] Onset: 07-03-2021 07-03-2021 Episodic Results Test Name Value Interpretation Reference Range Facil ity Vital Signs Date Time Vital Sign Value Performing Clinician Patricia horan 05-09-2023 09:58-0500 Body weight 78.38 kg Marshall Foster MD Work Phone: [facility] 05-09-2023 09:58-0500 Diastolic blood pressure 50 mm[Hg] Marshall Foster MD Work Phone: [facility] 05-09-2023 09:58-0500 Systolic blood pressure 92 mm[Hg] Marshall Foster MD Work Phone: [facility] 03-27-2023 08:46-0400 Body weight 76.2 kg Parvin Randle MD Work Phone: [facility] 03-27-2023 08:46-0400 Diastolic blood pressure 58 mm[Hg] Parvin Randle MD Work Phone: [facility] 03-27-2023 08:46-0400 Systolic blood pressure 106 mm[Hg] Parvin Randle MD Work Phone: [facility] 01-30-2023 10:22-0400 Body weight 73.03 kg Parvin Randle MD Work Phone: [facility] 01-30-2023 10:22-0400 Diastolic blood pressure 72 mm[Hg] Parvin Randle MD Work Phone: [facility] 01-30-2023 10:22-0400 Systolic blood pressure 108 mm[Hg] Parvin Randle MD Work Phone: [facility] 01-02-2023 11:16-0400 Body weight 73.48 kg Parvin Randle MD Work Phone: [facility] 01-02-2023 11:16-0400 Diastolic blood pressure 68 mm[Hg] Parvin Randle MD Work Phone: [facility] 01-02-2023 11:16-0400 Systolic blood pressure 102 mm[Hg] Parvin Randle MD Work Phone: [facility] 01-30-2022 11:29-0400 Body weight 74.3 kg Parvin Randle MD Work Phone: [facility] 01-30-2022 11:29-0400 Diastolic blood pressure 60 mm[Hg] Parvin aRndle MD Work Phone: [facility] 01-30-2022 11:29-0400 Systolic blood pressure 102 mm[Hg] Parvin Randle MD Work Phone: [facility] 01-09-2022 11:36-0400 Body weight 80.29 kg Parvin Randle MD Work Phone: [facility] 01-09-2022 11:36-0400 Diastolic blood pressure 80 mm[Hg] Parvin Randle MD Work Phone: [facility] 01-09-2022 11:36-0400 Heart rate 110 /min Parvin Randle MD Work Phone: [facility] 01-09-2022 11:36-0400 Systolic blood pressure 124 mm[Hg] Parvin Randle MD Work Phone: [facility] 01-05-2022 10:15-0400 Body weight 81.38 kg Juan Luis Denson MD Work Phone: [facility] 01-05-2022 10:15-0400 Diastolic blood pressure 60 mm[Hg] Juan Luis Denson MD Work Phone: [facility] 01-05-2022 10:15-0400 Systolic blood pressure 120 mm[Hg] Juan Luis Denson MD Work Phone: [facility] 01-03-2022 15:14-0400 Diastolic blood pressure 64 mm[Hg] Jack Granado MD Work Phone: [facility] 01-03-2022 15:14-0400 Systolic blood pressure 110 mm[Hg] Jack Granado MD Work Phone: [facility] 12-22-2021 08:35-0400 Body weight 82.1 kg Parvin Randle MD Work Phone: [facility] 12-22-2021 08:35-0400 Diastolic blood pressure 60 mm[Hg] Parvin Randle MD Work Phone: [facility] 12-22-2021 08:35-0400 Systolic blood pressure 108 mm[Hg] Parvin Randle MD Work Phone: [facility] 12-08-2021 10:11-0400 Body weight 80.74 kg Jack Granado MD Work Phone: [facility] 12-08-2021 10:11-0400 Diastolic blood pressure 64 mm[Hg] Jack Granado MD Work Phone: [facility] 12-08-2021 10:11-0400 Systolic blood pressure 112 mm[Hg] Jack Granado MD Work Phone: [facility] 11-23-2021 09:42-0400 Body weight 78.93 kg Jack Granado MD Work Phone: [facility] 11-23-2021 09:42-0400 Diastolic blood pressure 58 mm[Hg] Jack Granado MD Work Phone: [facility] 11-23-2021 09:42-0400 Systolic blood pressure 110 mm[Hg] Jack Granado MD Work Phone: [facility] 11-10-2021 11:18-0400 Body weight 77.56 kg Parvin Randle MD Work Phone: [facility] 11-10-2021 11:18-0400 Diastolic blood pressure 60 mm[Hg] Parvin Randle MD Work Phone: [facility] 11-10-2021 11:18-0400 Systolic blood pressure 112 mm[Hg] Parvin Randle MD Work Phone: [facility] 10-13-2021 10:55-0400 Body weight 74.39 kg Jack Granado MD Work Phone: [facility] 10-13-2021 10:55-0400 Diastolic blood pressure 60 mm[Hg] Jack Granado MD Work Phone: [facility] 10-13-2021 10:55-0400 Systolic blood pressure 100 mm[Hg] Jack Granado MD Work Phone: [facility] 09-18-2021 14:42-0400 Body weight 73.03 kg Parvin Randle MD Work Phone: [facility] 09-18-2021 14:42-0400 Diastolic blood pressure 60 mm[Hg] Parvin Randle MD Work Phone: [facility] 09-18-2021 14:42-0400 Systolic blood pressure 112 mm[Hg] Parvin Randle MD Work Phone: [facility] 08-21-2021 16:17-0400 Body weight 72.12 kg Parvin Randle MD Work Phone: [facility] 08-21-2021 16:17-0400 Diastolic blood pressure 60 mm[Hg] Parvin Randle MD Work Phone: [facility] 08-21-2021 16:040 Systolic blood pressure 102 mm[Hg] Parvin Randle MD Work Phone: [facility] Encounters Encounter Date Encounter Type Care Provider Facility Start: 05-23-2023 End: 05-23-2023 ambulatory [facility] Facility:[facility] Start: 05-12-2023 Mindi Moctezuma Work Phone: OB/Gynecology Procedures Date Procedure Procedure Detail Performing Clinician Start: 05-09-2023 URINE OB DIP B/O Marshall Foster MD Work Phone: Start: 04-25-2023 Us preg uterus after 1st trimest 05/27 gestation Parvin Randle MD Work Phone: Start: 03-27-2023 URINE OB DIP B/O Kirk Randle MD Work Phone: Start: 01-30-2023 URINE OB DIP B/O Kirk Randle MD Work Phone: Start: 01-02-2023 Antibody screen MARSHALL FOSTER Plan of Treatment Date Care Activity Detail Author Start: 03-27-2033 Urine microalbumin profile DTaP,Tdap,Td Vaccine (10 - Td or Tdap) [facility] Start: 11-11-2031 Urine microalbumin profile DTAP,TDAP,TD (8 - Td or Tdap) [facility] Start: 02-10-2026 HPV TESTING HPV TESTING [facility] Start: 02-10-2026 PAP TESTING PAP TESTING [facility] Start: 02-10-2026 Screening for malignant neoplasm of cervix [facility] Start: 03-27-2023 End: 03-27-2024 OBSTETRIC ULTRASOUND [facility] OBSTETRIC ULTRASOUND [facility] Anc Imaging Routine 27 weeks gestation of Need for vaccination Supervision of other high risk pregnancies, third trimester Expected: 03/27/2023, Expires: 03/27/2024 [facility] Work Phone: Immunizations Immunization Date Immunization Notes Care Provider Fa keren 04-25-2023 respiratory syncytia l virus (RSV) vaccine, bivalent (ABRYSVO) Ob Ultrasound Work Phone: [facility] 03-27-2023 tetanus toxoid, redu osman diphtheria toxoid, and acellular pertussis vaccine, adsorbed Parvin Randle MD Work Phone: [facility] Work Phone: 02-27-2023 influenza, injectabl e, quadrivalent, contains preservative Parvin Randle MD Work Phone: [facility] 11-10-2021 tetanus toxoid, redu osman diphtheria toxoid, and acellular pertussis vaccine, adsorbed Parvin Randle MD Work Phone: [facility] 10-19-2020 COVID-19 vaccine, ag e 12+ yr (PFIZER-BIONTECH - PURPLE TOP) Parvin Randle MD Work Phone: [facility] 09-28-2020 COVID-19 vaccine, ag e 12+ yr (PFIZER-BIONTECH - PURPLE TOP) Parvin Randle MD Work Phone: [facility] 07-30-2018 influenza, injectabl e, quadrivalent, preservative free Ob Ultrasound Work Phone: [facility] 07-30-2018 tetanus toxoid, redu osman diphtheria toxoid, and acellular pertussis vaccine, adsorbed Ob Ultrasound Work Phone: [facility] 07-30-2018 zoster vaccine recombinant Ob Ultrasound Work Phone: [facility] 12-21-2009 human papilloma viru s vaccine, quadrivalent Parvin Randle MD Work Phone: [facility] Work Phone: 12-21-2009 varicella virus vaccine Vira Randle MD Work Phone: [facility] Work Phone: 08-19-2009 HPV, unspecified formulation Parvin Randle MD Work Phone: [facility] Work Phone: 08-18-2009 varicella virus vaccine Vira Randle MD Work Phone: [facility] Work Phone: 06-01-2009 HPV, unspecified formulation Parvin Randle MD Work Phone: [facility] Work Phone: 06-01-2009 meningococcal polysaccharide (groups A, C, Y and W-135) diphtheria toxoid conjugate vaccine (MCV4P) Parvin Randle MD Work Phone: [facility] Work Phone: 06-01-2009 tetanus toxoid, redu osman diphtheria toxoid, and acellular pertussis vaccine, adsorbed Parvin Randle MD Work Phone: [facility] Work Phone: 05-10-2009 novel Influenza-H1N1 -09, live virus for nasal administration Parvin Randle MD Work Phone: [facility] Work Phone: 03-22-2000 hepatitis B vaccine, pediatric or pediatric/adolescent dosage Parvin Randle MD Work Phone: [facility] Work Phone: 09-11-1999 hepatitis B vaccine, pediatric or pediatric/adolescent dosage Parvin Randle MD Work Phone: [facility] Work Phone: 07-26-1999 hepatitis B vaccine, pediatric or pediatric/adolescent dosage Parvin Randle MD Work Phone: [facility] Work Phone: 07-24-1996 diphtheria, tetanus toxoids and acellular pertussis vaccine, unspecified formulation Parvin Randle MD Work Phone: [facility] Work Phone: 07-24-1996 measles, mumps and rubella virus vaccine Parvin Randle MD Work Phone: [facility] Work Phone: 07-24-1996 trivalent poliovirus vaccine, live, oral Parvin Randle MD Work Phone: [facility] Work Phone: 04-13-1993 diphtheria, tetanus toxoids and acellular pertussis vaccine, unspecified formulation Parvin Randle MD Work Phone: [facility] Work Phone: 04-13-1993 trivalent poliovirus vaccine, live, oral Parvin Randle MD Work Phone: [facility] Work Phone: 07-28-1992 haemophilus influenz ae type b vaccine, conjugate unspecified formulation Parvin Randle MD Work Phone: [facility] Work Phone: 07-28-1992 measles, mumps and rubella virus vaccine Parvin Randle MD Work Phone: [facility] Work Phone: 1991 diphtheria, tetanus toxoids and pertussis vaccine Parvin Randle MD Work Phone: [facility] Work Phone: 1991 haemophilus influenz ae type b vaccine, conjugate unspecified formulation Parvin Randle MD Work Phone: [facility] Work Phone: 1991 diphtheria, tetanus toxoids and pertussis vaccine Parvin Randle MD Work Phone: [facility] Work Phone: 1991 haemophilus influenz ae type b vaccine, conjugate unspecified formulation Parvin Randle MD Work Phone: [facility] Work Phone: 1991 trivalent poliovirus vaccine, live, oral Parvin Randle MD Work Phone: [facility] Work Phone: 1991 diphtheria, tetanus toxoids and pertussis vaccine Parvin Randle MD Work Phone: [facility] Work Phone: 1991 haemophilus influenz ae type b vaccine, conjugate unspecified formulation Parvin Randle MD Work Phone: [facility] Work Phone: 1991 trivalent poliovirus vaccine, live, oral Parvin Randle MD Work Phone: [facility] Work Phone: Payers Date Payer Category Payer Unknown [id number] 2021 Private Health Insurance [employer] PPO [id number] 2021-Present [phone] [address] [facility] [place] [address] PPO [id number] 2021 Private Health Insurance [id number] Social History Date Type Detail Facility Start: 07-31-2011 End: 01-30-2022 Tobacco smoking status NHIS Never smoked tobacco [facility] Work Phone: Start: 08-21-2021 End: 05-09-2023 Alcohol intake Current non-drinker of alcohol (finding) [facility] Start: 06-15-2021 Education 17 [facility] Start: 05-12-2021 [facility] Start: 1990 Sex Assigned At Not on file [facility] Start: 08-11-2021 End: 01-09-2022 Exposure to SARS-CoV-2 (event) Not sure [facility] Start: 07-31-2011 End: 01-30-2022 Tobacco use and exposure Smokeless tobacco non-user [facility] Start: 11-01-2022 End: 11-05-2022 History of Social function [facility] Start: 11-01-2022 End: 11-05-2022 Tobacco use panel [facility] National Score (1-100), lower number is lower risk 56 [facility] Start: 06-25-2021 Gender identity Identifies as female gender (finding) [facility] Goals Date Patient Goal Desired Activity /State Personal health goal Clinical Notes 07-31-2011 to 05-13-2023 Telephone Encounter - Celia Saunders RN - 05/13/2023 8:33 AM ESTPrenatal Quick Notes - Marshall Foster MD - 05/09/2023 10:16 AM ESTPatient InstructionsPatient InstructionsPatient Instructions Note Date & Type Note Facility 05-13-2023 Miscellaneous Notes Formattin g of this note is different from the original. 34w4d Requested Prescriptions Pending Prescriptions Disp Refills 28 mg iron- 800 mcg tab [Pharmacy Med Name: VITAMINS TABLET] 30 tablet 6 Sig: take 1 tablet by mouth every day Celia Saunders, RN documented in this encounter [facility] 05-09-2023 Miscellaneous Notes Formattin g of this note might be different from the original. KJ - VB No. LOF No. CTXS No. Movement: present. Other c/o: heartburn not relieved by tums Medication list reviewed. Physical Exam See Flow Sheet Gen: no accute distress, well appearing Abd: soft, nontender, gravid A/P 34w0d Estimated Date of Delivery: 06/20/23 GERD - rx pepcid & advised on diet PTL precautions reviewed, Kick counts reviewed. Marshall Foster MD documented in this encounter [facility] 05-09-2023 Instructions s Deidre York - 05/09/2023 9:54 AM EST SEQUENTIAL SCREENINGS The [facility] offers sequential screenings for women who are interested in screenings for chromosomal abnormalities and certain defects during a . The sequential screen combines ultrasound and blood tests to determine the risk of chromosomal abnormalities, including Down's Syndrome (Trisomy 21) and Trisomy 18, as well as open neural tube defects including spina bifida. Ultrasound examination is performed between 11 weeks and 13 weeks gestational age. Blood tests are drawn after the ultrasound and again later in the between 15 and 21 weeks gestational age. Please let your physician know if you are interested in this testing. It will require an appointment with our telecommunication tower technician. This is not an ultrasound performed by a physician in our office during a routine visit. SIGNS AND SYMPTOMS OF LABOR 1. Contractions every 10 minutes or more often 2. Clear, pink, or brownish fluid (water) leaking from vagina 3. Feeling that baby is pushing down, pressure 4. Low, dull backache 5. Cramps that feel like a period 6. Cramps with or without diarrhea If you notice any of the above symptoms, contact our office at [phone] and ask to speak with a nurse. After hours, you can call doctors registry at [phone] OR call [facility] at [phone] and ask to have the doctor shock absorption floor layer paged. If you consider this an emergency, dial 9--1 or go to your nearest emergency department. NEED HELP? Are you dealing with a violent or abusive relationship? Are you a victim of rape or sexual assult? Call [facility] ([place]) 24 hour Crisis Hotline: 491.262.4252 or 160-073-9917. MANUAL Your Guide to a Healthy manual is now on-line. Visit [email or web address] to download your free copy documented in this encounter [facility] 05-06-2023 Miscellaneous Notes Formattin g of this note might be different from the original. Order signed and faxed. Gely Munoz RN Breast pump order received from [employer]. To RR to sign. Jennie Sosa RN documented in this encounter [facility] 05-03-2023 Miscellaneous Notes Formattin g of this note might be different from the original. Left a message that a [employer] message was sent. Patient to call the office with further questions or concerns. Celia Saunders RN Noted. 33w0d Patient called to report that she had a BP of 137/75. This was after she had been walking around. Took it again after resting and her repeat was 101/78. Denies DEE, vision changes, or RUQ pain. She was prompted to take it because she had a feeling of fatigue and weakness. Hx of Pre-E. Advised to go to L&D if she develops the above symptoms with an elevated BP. Aware a message would be sent to provider shock absorption floor layer tomorrow as DOC today is at the hospital. Next OB visit is 05/09. Celia Saunders, RN documented in this encounter [facility] 04-25-2023 Miscellaneous Notes Formattin g of this note might be different from the original. Anatomy ultrasound reviewed. No abnormalities identified. Follow up as clinically indicated. Please place copy in ob chart. Parvin Ranlde MD documented in this encounter [facility] 03-27-2023 Note HNO ID: [id number] Author: Marjorie Nolan LPN Service: ? Author Type: ? Type: Progress Notes Filed: 03/27/2023 9:53 AM Note Text: Patient identified by name and date of . Rita Huang Curt presents today for a vaccination of Tdap. Patient denies an allergy to latex: yes Patient denies a severe (life-threatening) allergy to a previous dose of Tdap, DTP, DTaP, DT or Td vaccine. Yes Patient denies history of epilepsy or neurological problems: Yes Patient is afebrile and denies being moderately or severely ill: Yes Patient denies history of Guillain-Larsen Syndrome (a severe paralytic illness): Yes Tdap Adacel injection was given without incident. See immunizations for details of immunizations administered today. VIS sheet provided: Yes Provider Justin Hoffmann was present in office at time of injection. Marjorie Nolan LPN [facility] 03-27-2023 Miscellaneous Notes Formattin g of this note might be different from the original. RR- VB No. LOF No. CTXS No. Movement: present. Other c/o: some heartburn Medication list reviewed. Physical Exam See Flow Sheet Abd: soft, nontender, gravid Ext: edema: Trace A/P 27w6d Estimated Date of Delivery: 06/20/23 F/u in 3-4 weeks plans repeat c/s and tubal US for growth in 4 weeks Parvin Randle M.D. documented in this encounter [facility] 03-27-2023 History of Presen t illness Narrative Patient identified by name and date of . Rita Elias presents today for a vaccination of Tdap. Patient denies an allergy to latex: yes Patient denies a severe (life-threatening) allergy to a previous dose of Tdap, DTP, DTaP, DT or Td vaccine. Yes Patient denies history of epilepsy or neurological problems: Yes Patient is afebrile and denies being moderately or severely ill: Yes Patient denies history of Guillain-Larsen Syndrome (a severe paralytic illness): Yes Tdap Adacel injection was given without incident. See immunizations for details of immunizations administered today. VIS sheet provided: Yes Provider Justin Hoffmann was present in office at time of injection. Marjorie Nolan LPN documented in this encounter [facility] 03-27-2023 Instructions Marjorie Nolan LPN - 03/27/2023 8:26 AM EDT SEQUENTIAL SCREENINGS The [facility] offers sequential screenings for women who are interested in screenings for chromosomal abnormalities and certain defects during a . The sequential screen combines ultrasound and blood tests to determine the risk of chromosomal abnormalities, including Down's Syndrome (Trisomy 21) and Trisomy 18, as well as open neural tube defects including spina bifida. Ultrasound examination is performed between 11 weeks and 13 weeks gestational age. Blood tests are drawn after the ultrasound and again later in the between 15 and 21 weeks gestational age. Please let your physician know if you are interested in this testing. It will require an appointment with our telecommunication tower technician. This is not an ultrasound performed by a physician in our office during a routine visit. SIGNS AND SYMPTOMS OF LABOR 1. Contractions every 10 minutes or more often 2. Clear, pink, or brownish fluid (water) leaking from vagina 3. Feeling that baby is pushing down, pressure 4. Low, dull backache 5. Cramps that feel like a period 6. Cramps with or without diarrhea If you notice any of the above symptoms, contact our office at [phone] and ask to speak with a nurse. After hours, you can call doctors registry at [phone] OR call [facility] at [phone] and ask to have the doctor shock absorption floor layer paged. If you consider this an emergency, dial 3 or go to your nearest emergency department. NEED HELP? Are you dealing with a violent or abusive relationship? Are you a victim of rape or sexual assult? Call [facility] ([place]) 24 hour Crisis Hotline: 142.341.4149 or 875-560-3317. MANUAL Your Guide to a Healthy manual is now on-line. Visit [email or web address] to download your free copy documented in this encounter [facility] 01-30-2023 Miscellaneous Notes Formattin g of this note might be different from the original. RR_ No VB/LOF. US today. Taking PNV and ASA. F/u in 4 weeks or prn. Parvin Randle MD documented in this encounter [facility] 01-30-2023 Alyssa Flores Ma - 01/30/2023 9:28 AM EDT SEQUENTIAL SCREENINGS The [facility] offers sequential screenings for women who are interested in screenings for chromosomal abnormalities and certain defects during a . The sequential screen combines ultrasound and blood tests to determine the risk of chromosomal abnormalities, including Down's Syndrome (Trisomy 21) and Trisomy 18, as well as open neural tube defects including spina bifida. Ultrasound examination is performed between 11 weeks and 13 weeks gestational age. Blood tests are drawn after the ultrasound and again later in the between 15 and 21 weeks gestational age. Please let your physician know if you are interested in this testing. It will require an appointment with our telecommunication tower technician. This is not an ultrasound performed by a physician in our office during a routine visit. SIGNS AND SYMPTOMS OF LABOR 1. Contractions every 10 minutes or more often 2. Clear, pink, or brownish fluid (water) leaking from vagina 3. Feeling that baby is pushing down, pressure 4. Low, dull backache 5. Cramps that feel like a period 6. Cramps with or without diarrhea If you notice any of the above symptoms, contact our office at [phone] and ask to speak with a nurse. After hours, you can call doctors registry at [phone] OR call [facility] at [phone] and ask to have the doctor shock absorption floor layer paged. If you consider this an emergency, dial 9--7 or go to your nearest emergency department. NEED HELP? Are you dealing with a violent or abusive relationship? Are you a victim of rape or sexual assult? Call [facility] ([place]) 24 hour Crisis Hotline: 184.545.8974 or 324-670-9656. MANUAL Your Guide to a Healthy manual is now on-line. Visit [email or web address] to download your free copy documented in this encounter [facility] 01-02-2023 Miscellaneous Notes Formattin g of this note might be different from the original. RR- Doing well overall. No VB/LOF. Still w/ occas nausea but better overall. F/u in 4 weeks for anatomy US and ob visit. Parvin Randle MD documented in this encounter [facility] 01-02-2023 Instructions Alyssa Gallardo Ma - 01/02/2023 11:14 AM EDT SEQUENTIAL SCREENINGS The [facility] offers sequential screenings for women who are interested in screenings for chromosomal abnormalities and certain defects during a . The sequential screen combines ultrasound and blood tests to determine the risk of chromosomal abnormalities, including Down's Syndrome (Trisomy 21) and Trisomy 18, as well as open neural tube defects including spina bifida. Ultrasound examination is performed between 11 weeks and 13 weeks gestational age. Blood tests are drawn after the ultrasound and again later in the between 15 and 21 weeks gestational age. Please let your physician know if you are interested in this testing. It will require an appointment with our telecommunication tower technician. This is not an ultrasound performed by a physician in our office during a routine visit. SIGNS AND SYMPTOMS OF LABOR 1. Contractions every 10 minutes or more often 2. Clear, pink, or brownish fluid (water) leaking from vagina 3. Feeling that baby is pushing down, pressure 4. Low, dull backache 5. Cramps that feel like a period 6. Cramps with or without diarrhea If you notice any of the above symptoms, contact our office at [phone] and ask to speak with a nurse. After hours, you can call doctors registry at [phone] OR call [facility] at [phone] and ask to have the doctor shock absorption floor layer paged. If you consider this an emergency, dial 9-1-5 or go to your nearest emergency department. NEED HELP? Are you dealing with a violent or abusive relationship? Are you a victim of rape or sexual assult? Call [facility] ([place]) 24 hour Crisis Hotline: 639.774.1073 or 030-225-1826. MANUAL Your Guide to a Healthy manual is now on-line. Visit [email or web address] to download your free copy documented in this encounter [facility] 12-05-2022 Note HNO ID: [id number] Author: Celia Saunders RN Service: ? Author Type: ? Type: Progress Notes Filed: 12/05/2022 9:41 AM Note Text: Patient here for First Trimester Screening. See ultrasound report for details. Options for genetic screening and diagnosis discussed with the patient. Patient opts for first trimester screening and the sequential screening protocol. Limitations of screening tests discussed with the patient. Jack Serrano MD [facility] 11-05-2022 Note HNO ID: [id number] Author: Juan Luis Denson MD Service: ? Author Type: Physician Type: Progress Notes Filed: 11/05/2022 5:20 PM Note Text: OB point of care ultrasound was performed. See imaging tab for details. Alyssa Gallardo Ma INITIAL OB ASSESSMENT OB Provider: Alyssa Gallardo Ma HPI: Rita is a 32 year old White Female here to establish Obstetrical Care. Patient's last menstrual period was 09/04/2022 (exact date). from OB Dating Form. Cycles regular was unplanned but accepted Complaints: None OB History T2 L2 SAB0 IAB0 Ectopic0 Multiple0 Live Births2 Comment: G1 labs received, no abnormalities, mentions CF screen ordered but no results for this in the records. Delivery record -LTCS w/ double layer uterine closure for VB/partial abruption, EBL 1200 cc. Had Gest HTN. Parvin Randle MD Previous history: Prior : yes x 2 History of 4th degree laceration: No History of shoulder dystocia: No History of Hypertensive disorders including pre-eclampsia, chronic hypertension or gestational hypertension: Yes History of gestational diabetes: No Patient's Risk Screening for delivery: MEDICAL/PSYCHOSOCIAL HISTORY: History of hemorrhage or bleeding concerns: No Thyroid Disease: No History of chronic hypertension: No History of pre-existing diabetes: No No results found for: ABORHD BMI 25.99 kg/(m2) History of abnormal pap: No Prior treatment for cervical dysplasia: none. History of STDs: None Tobacco use: No Caffeine use: Yes Drug use: No Alcohol use: No Multivitamin with Folic acid: Yes Yarsanism or heritage: No Would refuse blood transfusion if medically necessary: No Are you currently employed? No Do you have any history of depression, anxiety, PTSD, eating disorders or other mood problems: No Do you have any safety concerns or history of traumatic events that you would like to discuss with your provider: No How often does this describe you? I don't have enough money to pay my bills: Never Within the past 12 months, have you worried that your food would run out before you had money to buy more: Never In the past 12 months, has lack of reliable transportation kept you from going to medical appointments or work, or from keeping things needed for daily living: Never In the past 12 months, have you had any concerns about having a place to live, or about the condition or quality of your housing: Never Are there any cultural or spiritual needs we should be aware of: No Over the past two weeks have you felt down, depressed, or hopeless: Negative Over the past two weeks have you felt little interest or pleasure in doing things: Negative GENETIC SCREENING: Partner present: Yes Patient verbalized knowledge of partner family health history: Yes Do you or your partner have any personal or family history of defects not previously discussed: No Do you have history of a complicated by anomaly, genetic condition, or demise: No Marital Status: Partner: Name: Alvaro 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 granado PAST SURGICAL HISTORY OF sebaceous nevus on scalp TONSILLECTOMY AND ADENOIDECTOMY AGE 13/> Current Outpatient Medications Medication Sig Dispense Refill ondansetron (ZOFRAN) 4 mg tablet Take 1 tablet by mouth every 8 hours as needed. 30 tablet 0 MULTIVITAMINS 28 mg iron- 800 mcg tab TAKE 1 TABLET BY MOUTH EVERY DAY 100 tablet 1 vit 52-hyaf-yjdvc-dha (PRENATE MINI, FERR ASP GLYCIN,) 18-1-350 mg cap Take 1 Dose by mouth once daily. 90 capsule 3 No current facility-administered medications for this visit. Allergies As of Date: 11/05/2022 (No Known Allergies) Fully Assessed 11/05/2022 Does patient have penicillin allergy: No REVIEW OF SYSTEMS: GENERAL: Negative for: Fever or Chills HEENT: Negative for: Headache, Impaired Vision, Ringing in Ears, Nosebleeds NECK: Negative for: Swelling, Pain, Stiffness RESPIRATORY: Negative for: Cough, Shortness of breath, Wheezing GASTROINTESTINAL: Negative for: Heartburn, Constipation, Diarrhea, Blood in stool, Vomiting MUSCULOSKELETAL: Negative for: Muscle or joint pain, stiffness, Joint swelling NEUROLOGIC/PSYCHIATRIC: Negative for: Weakness, Paralysis, Numbness, Tingling, Tremor, Anxiety, Depression, Memory loss SKIN: Negative for: Rash, Itching GENITOURINARY: Negative for: vaginal itching, vaginal discharge, hematuria or dysuria PHYSICAL EXAM: BP 112/60 Ht 5' 6 (1.68m) Wt 161 lb (73.0kg) LMP 09/04/2022 BMI 26.00 kg/(m2). GENERAL: pleasant in no apparen (more content not included)... [facility] 11-01-2022 Note HNO ID: [id number] Author: Avril Rico RN Service: ? Author Type: ? Type: Progress Notes Filed: 11/01/2022 5:45 PM Note Text: # 1 - Date: 12/05/19, Sex: Female, Weight: 5 lb 6 oz (2.438 kg), GA: 37w0d, Delivery: , Other, Apgar1: None, Apgar5: None, Living: Living, Comments: Induced due to gestational HTN # 2 - Date: 01/12/22, Sex: Female, Weight: 6 lb 14 oz (3.118 kg), GA: 37w0d, Delivery: , Low Transverse, Apgar1: 9, Apgar5: 9, Living: Living, Comments: scheduled c/s, pre-eclampsia, EBL 800mL # 3 - Date: None, Sex: None, Weight: None, GA: None, Delivery: None, Apgar1: None, Apgar5: None, Living: None, Comments: None [facility] documented as of this encounter (statuses as of 11/09/2022) [facility] History of Past illness Narrative* Problem Noted Date Diagnosed Date Resolved Date affected by intrau terine growth restriction (IUGR) 11/01/2022 11/01/2022 Dysmenorrhea 07/31/2011 06/30/2021 Knee pain 09/02/2009 07/31/2011 documented as of this encounter (statuses as of 12/05/2022) [facility] History of Past illness Narrative* Problem Noted Date Diagnosed Date Resolved Date affected by intrau terine growth restriction (IUGR) 11/01/2022 11/01/2022 Dysmenorrhea 07/31/2011 06/30/2021 Knee pain 09/02/2009 07/31/2011 documented as of this encounter (statuses as of 01/02/2023) [facility] History of Past illness Narrative* Problem Noted Date Diagnosed Date Resolved Date affected by intrau terine growth restriction (IUGR) 11/01/2022 11/01/2022 Dysmenorrhea 07/31/2011 06/30/2021 Knee pain 09/02/2009 07/31/2011 documented as of this encounter (statuses as of 01/30/2023) [facility] of Past illness Narrative* Problem Noted Date Diagnosed Date Resolved Date affected by intrau terine growth restriction (IUGR) 11/01/2022 11/01/2022 Dysmenorrhea 07/31/2011 06/30/2021 Knee pain 09/02/2009 07/31/2011 documented as of this encounter (statuses as of 03/27/2023) [facility] of Past illness Narrative* Problem Noted Date Diagnosed Date Resolved Date affected by intrau terine growth restriction (IUGR) 11/01/2022 11/01/2022 Dysmenorrhea 07/31/2011 06/30/2021 Knee pain 09/02/2009 07/31/2011 documented as of this encounter (statuses as of 04/25/2023) [facility] of Past illness Narrative* Problem Noted Date Diagnosed Date Resolved Date affected by intrau terine growth restriction (IUGR) 11/01/2022 11/01/2022 Dysmenorrhea 07/31/2011 06/30/2021 Knee pain 09/02/2009 07/31/2011 documented as of this encounter (statuses as of 05/03/2023) [facility] of Past illness Narrative* Problem Noted Date Diagnosed Date Resolved Date affected by intrau terine growth restriction (IUGR) 11/01/2022 11/01/2022 Dysmenorrhea 07/31/2011 06/30/2021 Knee pain 09/02/2009 07/31/2011 documented as of this encounter (statuses as of 05/06/2023) [facility] of Past illness Narrative* Problem Noted Date Diagnosed Date Resolved Date affected by intrau terine growth restriction (IUGR) 11/01/2022 11/01/2022 Dysmenorrhea 07/31/2011 06/30/2021 Knee pain 09/02/2009 07/31/2011 documented as of this encounter (statuses as of 05/09/2023) [facility] of Past illness Narrative* Problem Noted Date Diagnosed Date Resolved Date affected by intrau terine growth restriction (IUGR) 11/01/2022 11/01/2022 Dysmenorrhea 07/31/2011 06/30/2021 Knee pain 09/02/2009 07/31/2011 documented as of this encounter (statuses as of 05/15/2023) [facility] History of Present illness Narrative* Parvin Randle MD - 01/30/2022 11:25 AM EDT EARLY VISIT Rita Elias is a 31 year old here for 2 week visit. Delivery Summary: C/s 01/12/2022 ROS: General: Denies any fever or chills Hypertension Screening: Headache? No. Visual Changes? No Epigastric Pain? No Increased Swelling? No Taking any BP medications at home? No If applicable, monitoring BP at home? (If Yes, include results) NA Mood: normal Depression: denies symptoms of depression. OB Depression and Anxiety Screening- This Encounter (since 01/29/2022) Over the past 2 weeks have you felt down, depressed, or hopeless? Negative Over the past two weeks, have you felt little interest or pleasure in doing things? Negative Feeling nervous, anxious or on edge 0-Not at all Not being able to stop or control worrying 0-Not al all Anxiety Pre-Screening Total (If >/= 3 additional questions will be reviewed) 0 Feeding: Bottle feeding problems: None Bladder: No dysuria, gross hematuria, urinary frequency, urinary urgency, or incontinence Bowel symptoms: Negative for abdominal discomfort, blood in stools or black stools and change in bowel habits Abdomen: She reports no incisional redness, tenderness, erythema Bleeding: spotting Bottom and Perineum: No issues Sleep: no sleep concerns, feels rested Emotional support: Yes Exercise: N/A Other issues: None PHYSICAL EXAMINATION: BP 102/60 Wt 163 lb 12.8 oz (74.3 kg) LMP 2021 (Exact Date) Yes BMI 26.44 kg/m General: pleasant,female in no apparent distress, A&O x 3. Skin warm and intact. Breast: soft, non-tender, symmetric, no dominant mass, normal nipple-areolar complex, no lymphadenopathy, and no nipple discharge Abdomen: soft, non-tender, and no masses /Incision: No incisional redness, swelling, or drainage Pelvic: Deferred Bimanual: Deferred ASSESSMENT AND PLAN: 31 year old status post CS with normal course. Contraception plan: condoms and considering . Reinforced 6-week pelvic rest. Encouraged condom usage should patient deviate. Education: resources provided - see MA/RN note Follow up: Return to Clinic for 6 week visit and as needed Medical Decision Making: Medical Decision Making Level: 1 - N/A Parvin Randle MD [facility] Miscellaneous Notes* Telephone Encounter - Avril Rico RN - 01/15/2022 4:55 PM EDT Received PP support order from [facility]. I called patient-patient does not want it. documented [facility] History of Present illness Narrative* Jennie Sosa RN - 01/12/2022 2:00 PM EDT Patient delivered via repeat by repeat on 01/12/22 at [facility]. See OB history. Jennie Sosa RN documented in this [facility] Miscellaneous Notes* Quick Notes - Parvin Randle MD - 01/09/2022 12:09 PM EDT RR- VB No. LOF No. CTXS few this am . Movement: present. Other c/o: denies DEE or visual changes. SInce last week BP stable but did feel an episode this am where felt sob and fatigued like she does when BP goes up. Medication list reviewed. Physical Exam See Flow Sheet Abd: soft, nontender, gravid Ext: edema: Trace 2+ DTRs, no clonus A/P 36w4d Estimated Date of Delivery: 02/02/22 Labs: repeat pree labs today kick counts no signs/symptoms of severe pre-e plan repeat c/s on 01/12/22 unless indication for delivery before then some feelings of pain in rectal area, like a spasm, if occurs after delivery consider pelvic floor PT. Parvin Randle M.D. documented in this [facility] Instructions* Patient Instructions* Alyssa Paulina Ak - 01/09/2022 11:38 AM EDT SEQUENTIAL SCREENINGS The [facility] offers sequential screenings for women who are interested in screenings for chromosomal abnormalities and certain defects during a . The sequential screen combinesultrasound and blood tests to determine the risk of chromosomal abnormalities, including Down's Syndrome (Trisomy 21) and Trisomy 18, as well as open neural tube defects including spina bifida. Ultrasound examination is performed between 11 weeks and 13 weeks gestational age. Blood tests are drawn after the ultrasound and again later in the between 15 and 21 weeks gestational age. Please let your physician know if you are interested in this testing. It will require an appointment withour telecommunication tower technician. This is not an ultrasound performed by a physician in our office during a routine visit. SIGNS AND SYMPTOMS OF LABOR 1. Contractions every 10 minutes or more often 2. Clear, pink, or brownish fluid (water) leaking from vagina 3. Feeling that baby is pushing down, pressure 4. Low, dull backache 5. Cramps that feel like a period 6. Cramps with or without diarrhea If you notice any of the above symptoms, contact our office at [phone] and ask to speak with anurse. After hours, you can call doctors registry at [phone] OR call [facility] at [phone] ask to have the doctor shock absorption floor layer paged. If you consider this an emergency, dial 2-1-4 or go to your nearest emergency department. NEED HELP? Are you dealing with a violent or abusive relationship? Are you a victim of rape or sexual assult? Call [facility] ([place]) 24 hour Crisis Hotline: 941.964.7931 or 559-932-1828. MANUAL Your Guide to a Healthy manual is now on-line. Visit [email or web address] to download your free copy documented in this [facility] History and physical note * Parvin Randle MD - 01/09/2022 11:37 AM EDT Pre-Op History and Physical HPI: The patient is a 31 year old female presenting for pre-operative visit. She is scheduled for , for previous c/s and preeclampsia without severe features on 01/12/22. Procedure discussed along with risks, benefits and complications. Other alternatives discussed for management. Consent form signed? Yes. PAST MEDICAL HISTORY Diagnosis Date Gestational hypertension Placental abruption Pre-eclampsia in third trimester 01/03/2022 PAST SURGICAL HISTORY Procedure Laterality Date SNGL 12/05/2019 PAST SURGICAL HISTORY OF sebaceous nevus on scalp TONSILLECTOMY & ADENOIDECTOMY AGE 13/> Current Outpatient Medications Medication Sig Dispense Refill aspirin, enteric coated (ECOTRIN LOW STRENGTH) 81 mg EC tablet Take 1 tablet by mouth once daily. vit 49-vsae-ywdyk-dha (PRENATE MINI, FERR ASP GLYCIN,) 18-1-350 mg cap Take 1 Dose by mouth once daily. 30 capsule 12 Breast Pump Use as directed (Patient not taking: No sig reported) 1 Each 0 No current facility-administered medications for this visit. ALLERGIES: Patient has no known allergies. PERSONAL HISTORY: Social History Tobacco Use Smoking status: Never Smokeless tobacco: Never Vaping Use Vaping Use: Never used Substance Use Topics Alcohol use: No Drug use: No FAMILY HISTORY: FAMILY HISTORY Problem Relation Age of Onset No Known Problems Mother Asthma Father No Known Problems Brother No Known Problems Brother Cancer Maternal Grandmother Heart Maternal Grandfather Heart Paternal Grandfather REVIEW OF SYMPTOMS: GENERAL: denies fevers or chills ENDOCRINOLOGY: has not been on steroids Cardiology : denies palpitations or chest pain Respiratory: denies SOB or cough Hematology: denies history of prolonged bleeding or easy bruising or VTE Allergy: Denies history of personal or family history of allergy to anesthesia PHYSICAL EXAMINATION: VITALS: Last menstrual period 2021. GENERAL: The patient is well nourished, well hydrated in no acute distress. , The patient is oriented to time, place, and person. NECK: Supple. No lynphadenopathy, normal thyroid, no thyromegaly. LUNGS: Clear to auscultation bilaterally. no wheezes, rhonchi or rales HEART: Regular rate and rhythm, Normal heart sounds, and No murmurs or gallops IMPRESSION: Estimated Date of Delivery: 02/02/22 PLAN: The risks/benefits/alternatives and personal involved for the planned c- section were reviewedwith the patient. Her questions were answered to her satisfaction and she desires to proceed. Consent was signed. I reviewed with her postop instructions and expectations. I have reviewed and updated past medical and surgical history, medications and allergies Parvin Randle M.D. documented in this encounterMemorial [facility] System08-12-2022 History of Present illness Narrative* Juan Luis Denson MD - 01/05/2022 11:29 AM EDT NST SUMMARY PROVIDER ASSESSMENT AND INTERPRETATION Indications for NST: Pre-eclampsia Baseline: 150 Variability: Moderate Accelerations: Present 15 X 15 Decelerations: None Interpretation: Reactive SIGNATURE: Juan Luis Denson DO documented in this encounterMemorial Health System08-12-2022 Miscellaneous Notes* Quick Notes - Juan Luis Denson MD - 01/05/2022 10:38 AM EDT SW- No severe DEE, vision changes, upper abd pain, malaise, ctx, vb, lof. Good FM. To start Pepcid for heart burn. Had lab work Saturday. NST reactive today. BP normal, no proteinuria, and no hyperreflexia on exam. Discussed warning signs and symptoms of pre e with severe features and reasons to callor come in to L&D. To cont home BP monitoring. RTO next week for OB visit/pre op. C/S scheduledfor 37 wks. Juan Luis Denson DO documented in this encounterMemorial Health System08-12-2022 Instructions* Patient Instructions* Jacquie Ling MA - 01/05/2022 9:42 AM EDT SEQUENTIAL SCREENINGS [facility] offers sequential screenings for women who are interested in screenings for chromosomal abnormalities and certain defects during a . The sequential screen combinesultrasound and blood tests to determine the risk of chromosomal abnormalities, including Down's Syndrome (Trisomy 21) and Trisomy 18, as well as open neural tube defects including spina bifida. Ultrasound examination is performed between 11 weeks and 13 weeks gestational age. Blood tests are drawn after the ultrasound and again later in the between 15 and 21 weeks gestational age. Please let your physician know if you are interested in this testing. It will require an appointment withour telecommunication tower technician. This is not an ultrasound performed by a physician in our office during a routine visit. SIGNS AND SYMPTOMS OF LABOR 1. Contractions every 10 minutes or more often 2. Clear, pink, or brownish fluid (water) leaking from vagina 3. Feeling that baby is pushing down, pressure 4. Low, dull backache 5. Cramps that feel like a period 6. Cramps with or without diarrhea If you notice any of the above symptoms, contact our office at [phone] and ask to speak with anurse. After hours, you can call doctors registry at [phone] OR call [facility] at [phone] ask to have the doctor shock absorption floor layer paged. If you consider this an emergency, dial 9--1 or go to your nearest emergency department. NEED HELP? Are you dealing with a violent or abusive relationship? Are you a victim of rape or sexual assult? Call [facility] ([place]) 24 hour Crisis Hotline: 827.132.1065 or 413-358-8109. MANUAL Your Guide to a Healthy manual is now on-line. Visit [email or web address] to download your free copy documented in this encounterMemorial Health System08-10-2022 Miscellaneous Notes* Telephone Encounter - Avril Rico RN - 01/03/2022 4:30 PM EDT Discussed with patient all upcoming appt and the C Section date/time * Telephone Encounter - Avril Rico RN - 01/03/2022 10:43 AM EDT I did call Soumya at [facility] and January 12 is available. I tried to call patient to confirm that this day would work for her. Need to discuss with her after ultrasound today and BTZ injection * Telephone Encounter - Parvin Randle MD - 01/03/2022 9:29 AM EDT US ordered. BMZ ordered. Also, we will be moving her c/s to 37 weeks if she is stable until then due to the preclampsia. She wll need a BP check and NST on Saturday and a BPP next week w/ preop w/ me. Let's see if we can move her c/s to SaturdayJan 12, confirm w/ her this is ok. Thanks. . Parvin Randle MD * Telephone Encounter - Celia Saunders RN - 01/03/2022 8:41 AM EDT Patient called stating that RR would like patient to have ultrasound, OB visit, BP check and secondBetamethasone. Patient scheduled for this afternoon. Please file pending order for US. Thank you. Celia Saunders RN documented in this encounterMemorial Health System08-10-2022 Miscellaneous Notes* Quick Notes - Jack Granado MD - 01/03/2022 3:25 PM EDT DM- follow up PRE E. Had some elevated BPs yesterday and wasn't feeling well. Today denies DEE. Visual changes or RUQ pain. Denies Vaginal Bleeding, Leaking fluid, or contractions. Pt reports good movement. EXAM: Gen: female in NAD Abd: soft, non tender to palpation- NO RUQ pain. EXT: DTR +2 A/p: @ 35.5 weeks- PRE E w/o severe features 1) will continue to monitor BPs at home call if elevated 2) Follow up NST Friday 01/05 3) Kick counts reviewed 4) Celestone #2 today. 5) CS moved to 37 weeks- 6) S/Sx of PRE E reviewed. 7) Growth us 49%, BPP 01/01 Jack Serrano MD documented in this encounterMemorial Health System08-10-2022 Instructions* Patient Instructions* Leola Crandall Ma - 01/03/2022 2:53 PM EDT SEQUENTIAL SCREENINGS [facility] offers sequential screenings for women who are interested in screenings for chromosomal abnormalities and certain defects during a . The sequential screen combinesultrasound and blood tests to determine the risk of chromosomal abnormalities, including Down's Syndrome (Trisomy 21) and Trisomy 18, as well as open neural tube defects including spina bifida. Ultrasound examination is performed between 11 weeks and 13 weeks gestational age. Blood tests are drawn after the ultrasound and again later in the between 15 and 21 weeks gestational age. Please let your physician know if you are interested in this testing. It will require an appointment withour telecommunication tower technician. This is not an ultrasound performed by a physician in our office during a routine visit. SIGNS AND SYMPTOMS OF LABOR 1. Contractions every 10 minutes or more often 2. Clear, pink, or brownish fluid (water) leaking from vagina 3. Feeling that baby is pushing down, pressure 4. Low, dull backache 5. Cramps that feel like a period 6. Cramps with or without diarrhea If you notice any of the above symptoms, contact our office at [phone] and ask to speak with anurse. After hours, you can call doctors registry at [phone] OR call [facility] at [phone] ask to have the doctor shock absorption floor layer paged. If you consider this an emergency, dial 5-1-8 or go to your nearest emergency department. NEED HELP? Are you dealing with a violent or abusive relationship? Are you a victim of rape or sexual assult? Call [facility] ([place]) 24 hour Crisis Hotline: 647.334.5979 or 754-390-5626. MANUAL Your Guide to a Healthy manual is now on-line. Visit [email or web address] to download your free copy documented in this encounterMemorial Health System08-09-2022 Miscellaneous Notes* Telephone Encounter - Parvin Randle MD - 01/02/2022 12:58 PM EDT agree w/ to L&D/ED for eval. Parvin Randle MD * Telephone Encounter - Celia Saunders RN - 01/02/2022 12:30 PM EDT 35w4d Patient calling with c/o elevated BP and SOB. Took her BP today and it was 137/91. Repeat BP was 117/65. States she hasn't been feeling herself and like she did with her previous when herBP was high. Feeling more fatigued and SOB. Sudden onset of SOB last night. She needed to prop herself up in bed last night. Occurs with and without physical activity today. Noted patient sounding like she was SOB while talking on the phone. Denies CP. No recent sick contacts, congestion, cough, orfeeling ill. Advised patient to go to ER for evaluation of SOB. Celia Saunders RN documented in this encounterMemorial Health System07-29-2022 Miscellaneous Notes* Quick Notes - Parvin Randle MD - 12/22/2021 8:53 AM EDT RR_ No VB/LOF. Good FM. Mild edema. Taking ASA and pNV> BP stable. Plans repeat c/s. F/u in 2 weeks then week. Parvin Randle MD documented in this encounterMemorial Health System07-29-2022 Instructions* Patient Instructions* Alyssa Gallardo Ma - 12/22/2021 8:30 AM EDT SEQUENTIAL SCREENINGS [facility] offers sequential screenings for women who are interested in screenings for chromosomal abnormalities and certain defects during a . The sequential screen combinesultrasound and blood tests to determine the risk of chromosomal abnormalities, including Down's Syndrome (Trisomy 21) and Trisomy 18, as well as open neural tube defects including spina bifida. Ultrasound examination is performed between 11 weeks and 13 weeks gestational age. Blood tests are drawn after the ultrasound and again later in the between 15 and 21 weeks gestational age. Please let your physician know if you are interested in this testing. It will require an appointment withour telecommunication tower technician. This is not an ultrasound performed by a physician in our office during a routine visit. SIGNS AND SYMPTOMS OF LABOR 1. Contractions every 10 minutes or more often 2. Clear, pink, or brownish fluid (water) leaking from vagina 3. Feeling that baby is pushing down, pressure 4. Low, dull backache 5. Cramps that feel like a period 6. Cramps with or without diarrhea If you notice any of the above symptoms, contact our office at [phone] and ask to speak with anurse. After hours, you can call [employer] rust at [phone] OR call [facility] at [phone] ask to have the doctor shock absorption floor layer paged. If you consider this an emergency, dial 9-1-1 or go to your nearest emergency department. NEED HELP? Are you dealing with a violent or abusive relationship? Are you a victim of rape or sexual assult? Call [facility] ([place]) 24 hour Crisis Hotline: 306.437.9663 or 633-224-2211. MANUAL Your Guide to a Healthy manual is now on-line. Visit [email or web address] to download your free copy documented in this encounterMemorial Health System07-15-2022 Miscellaneous Notes* Quick Notes - Jack Granado MD - 12/08/2021 11:03 AM EDT DM- Pt doing well today. Denies Vaginal Bleeding, Leaking fluid, or contractions. Pt reports good movement. Kick counts reviewed. RTO 2 wks. Continue ASA. Reviewed s/sx PRE E. Jack Serrano MD documented in this encounterMemorial Health System07-15-2022 Instructions* Patient Instructions* Alyssa Gallardo Ma - 12/08/2021 10:08 AM EDT SEQUENTIAL SCREENINGS [facility] offers sequential screenings for women who are interested in screenings for chromosomal abnormalities and certain defects during a . The sequential screen combinesultrasound and blood tests to determine the risk of chromosomal abnormalities, including Down's Syndrome (Trisomy 21) and Trisomy 18, as well as open neural tube defects including spina bifida. Ultrasound examination is performed between 11 weeks and 13 weeks gestational age. Blood tests are drawn after the ultrasound and again later in the between 15 and 21 weeks gestational age. Please let your physician know if you are interested in this testing. It will require an appointment withour telecommunication tower technician. This is not an ultrasound performed by a physician in our office during a routine visit. SIGNS AND SYMPTOMS OF LABOR 1. Contractions every 10 minutes or more often 2. Clear, pink, or brownish fluid (water) leaking from vagina 3. Feeling that baby is pushing down, pressure 4. Low, dull backache 5. Cramps that feel like a period 6. Cramps with or without diarrhea If you notice any of the above symptoms, contact our office at [phone] and ask to speak with anurse. After hours, you can call doctors registry at [phone] OR call [facility] at [phone] ask to have the doctor shock absorption floor layer paged. If you consider this an emergency, dial 91-4 or go to your nearest emergency department. NEED HELP? Are you dealing with a violent or abusive relationship? Are you a victim of rape or sexual assult? Call [facility] ([place]) 24 hour Crisis Hotline: 920.474.4379 or 493-871-2307. MANUAL Your Guide to a Healthy manual is now on-line. Visit [email or web address] to download your free copy documented in this encounterMemorial Health System06-30-2022 Miscellaneous Notes* Quick Notes - Jack Granado MD - 11/23/2021 9:52 AM EDT DM- Pt doing well today. Denies Vaginal Bleeding, Leaking fluid, or contractions. Pt reports good movement. 28 week labs reviewed. RTO 2 wks. Continue ASA. CS scheduled if no spontaneous labor prior. Kick counts reviewed. Jack Serrano MD documented in this encounterMemorial Health System06-30-2022 Instructions* Patient Instructions* Alyssa Gallardo Ma - 11/23/2021 9:42 AM EDT SEQUENTIAL SCREENINGS [facility] offers sequential screenings for women who are interested in screenings for chromosomal abnormalities and certain defects during a . The sequential screen combinesultrasound and blood tests to determine the risk of chromosomal abnormalities, including Down's Syndrome (Trisomy 21) and Trisomy 18, as well as open neural tube defects including spina bifida. Ultrasound examination is performed between 11 weeks and 13 weeks gestational age. Blood tests are drawn after the ultrasound and again later in the between 15 and 21 weeks gestational age. Please let your physician know if you are interested in this testing. It will require an appointment withour telecommunication tower technician. This is not an ultrasound performed by a physician in our office during a routine visit. SIGNS AND SYMPTOMS OF LABOR 1. Contractions every 10 minutes or more often 2. Clear, pink, or brownish fluid (water) leaking from vagina 3. Feeling that baby is pushing down, pressure 4. Low, dull backache 5. Cramps that feel like a period 6. Cramps with or without diarrhea If you notice any of the above symptoms, contact our office at [phone] and ask to speak with anurse. After hours, you can call doctors registry at [phone] OR call [facility] at [phone] ask to have the doctor shock absorption floor layer paged. If you consider this an emergency, dial 8-1-2 or go to your nearest emergency department. NEED HELP? Are you dealing with a violent or abusive relationship? Are you a victim of rape or sexual assult? Call [facility] ([facility] 24 hour Crisis Hotline: 886.351.8492 or 179-849-6871. MANUAL Your Guide to a Healthy manual is now on-line. Visit [email or web address] to download your free copy documented in this encounterMemorial Health System06-17-2022 Instructions* Patient Instructions* Alyssa Gallardo Ma - 11/10/2021 11:35 AM EDT SEQUENTIAL SCREENINGS [facility] offers sequential screenings for women who are interested in screenings for chromosomal abnormalities and certain defects during a . The sequential screen combinesultrasound and blood tests to determine the risk of chromosomal abnormalities, including Down's Syndrome (Trisomy 21) and Trisomy 18, as well as open neural tube defects including spina bifida. Ultrasound examination is performed between 11 weeks and 13 weeks gestational age. Blood tests are drawn after the ultrasound and again later in the between 15 and 21 weeks gestational age. Please let your physician know if you are interested in this testing. It will require an appointment withour telecommunication tower technician. This is not an ultrasound performed by a physician in our office during a routine visit. SIGNS AND SYMPTOMS OF LABOR 1. Contractions every 10 minutes or more often 2. Clear, pink, or brownish fluid (water) leaking from vagina 3. Feeling that baby is pushing down, pressure 4. Low, dull backache 5. Cramps that feel like a period 6. Cramps with or without diarrhea If you notice any of the above symptoms, contact our office at [phone] and ask to speak with anurse. After hours, you can call doctors registry at [phone] OR call [facility] at [phone] ask to have the doctor shock absorption floor layer paged. If you consider this an emergency, dial 9-8-3 or go to your nearest emergency department. NEED HELP? Are you dealing with a violent or abusive relationship? Are you a victim of rape or sexual assult? Call [facility] ([place]) 24 hour Crisis Hotline: 711.476.5404 or 908-401-2341. MANUAL Your Guide to a Healthy manual is now on-line. Visit [email or web address] to download your free copy documented in this encounterMemorial Health System06-17-2022 Miscellaneous Notes* Quick Notes - Parvin Randle MD - 11/10/2021 11:18 AM EDT RR- No VB/LOF. Good FM. NO regular ctxs. No edema. 28 week labs. tdap today. F/u in 2 weeks or prn.Parvin Randle MD documented in this encounterMemorial Health System05-20-2022 Miscellaneous Notes* Quick Notes - Jack Granado MD - 10/13/2021 11:44 AM EDT DM- Pt doing well today. Denies Vaginal Bleeding, Leaking fluid, or contractions. Pt reports good movement. Discussed TOLAC vs CS - pt would like to schedule CS 39 weeks if spontaneous labor prior will consider . Scheduled with RR at 39 weeks. Continue ASA. RTO 4 wks. Jack Serrano MD documented in this encounterMemorial Health System05-20-2022 Instructions* Patient Instructions* Leola Crandall Ma - 10/13/2021 10:48 AM EDT SEQUENTIAL SCREENINGS [facility] offers sequential screenings for women who are interested in screenings for chromosomal abnormalities and certain defects during a . The sequential screen combinesultrasound and blood tests to determine the risk of chromosomal abnormalities, including Down's Syndrome (Trisomy 21) and Trisomy 18, as well as open neural tube defects including spina bifida. Ultrasound examination is performed between 11 weeks and 13 weeks gestational age. Blood tests are drawn after the ultrasound and again later in the between 15 and 21 weeks gestational age. Please let your physician know if you are interested in this testing. It will require an appointment withour telecommunication tower technician. This is not an ultrasound performed by a physician in our office during a routine visit. SIGNS AND SYMPTOMS OF LABOR 1. Contractions every 10 minutes or more often 2. Clear, pink, or brownish fluid (water) leaking from vagina 3. Feeling that baby is pushing down, pressure 4. Low, dull backache 5. Cramps that feel like a period 6. Cramps with or without diarrhea If you notice any of the above symptoms, contact our office at [phone] and ask to speak with anurse. After hours, you can call doctors registry at [phone] OR call [facility] at [phone] ask to have the doctor shock absorption floor layer paged. If you consider this an emergency, dial 01-25- or go to your nearest emergency department. NEED HELP? Are you dealing with a violent or abusive relationship? Are you a victim of rape or sexual assult? Call [facility] ([place]) 24 hour Crisis Hotline: 511.348.6422 or 764-333-7123. MANUAL Your Guide to a Healthy manual is now on-line. Visit [email or web address] to download your free copy documented in this encounterMemorial Health System04-25-2022 Miscellaneous Notes* Quick Notes - Parvin Randle MD - 09/18/2021 2:49 PM EDT RR- Some flutters. US today. Taking ASA. Nausea resolved. F/u 4 weeks or prn. Parvin Randle MD documented in this encounterMemorial Health System04-25-2022 Instructions* Patient Instructions* Alyssa Gallardo Ma - 09/18/2021 2:04 PM EDT SEQUENTIAL SCREENINGS [facility] offers sequential screenings for women who are interested in screenings for chromosomal abnormalities and certain defects during a . The sequential screen combinesultrasound and blood tests to determine the risk of chromosomal abnormalities, including Down's Syndrome (Trisomy 21) and Trisomy 18, as well as open neural tube defects including spina bifida. Ultrasound examination is performed between 11 weeks and 13 weeks gestational age. Blood tests are drawn after the ultrasound and again later in the between 15 and 21 weeks gestational age. Please let your physician know if you are interested in this testing. It will require an appointment withour telecommunication tower technician. This is not an ultrasound performed by a physician in our office during a routine visit. SIGNS AND SYMPTOMS OF LABOR 1. Contractions every 10 minutes or more often 2. Clear, pink, or brownish fluid (water) leaking from vagina 3. Feeling that baby is pushing down, pressure 4. Low, dull backache 5. Cramps that feel like a period 6. Cramps with or without diarrhea If you notice any of the above symptoms, contact our office at [phone] and ask to speak with anurse. After hours, you can call doctors registry at [phone] OR call [facility] at [phone] ask to have the doctor shock absorption floor layer paged. If you consider this an emergency, dial 1-- or go to your nearest emergency department. NEED HELP? Are you dealing with a violent or abusive relationship? Are you a victim of rape or sexual assult? Call [facility] ([place]) 24 hour Crisis Hotline: 927.175.8596 or 204-446-2322. MANUAL Your Guide to a Healthy manual is now on-line. Visit [email or web address] to download your free copy documented in this encounterMemorial Health System03-28-2022 Miscellaneous Notes* Quick Notes - Parvin Randle MD - 08/21/2021 4:32 PM EDT RR- No VB/LOF. Some flutters. Plan US in 4 weeks. Second part of sequential screen today. Parvin Randle MD documented in this encounterMemorial Health System03-28-2022 Instructions* Patient Instructions* Alyssa Gallardo Ma - 08/21/2021 4:15 PM EDT SEQUENTIAL SCREENINGS [facility] offers sequential screenings for women who are interested in screenings for chromosomal abnormalities and certain defects during a . The sequential screen combinesultrasound and blood tests to determine the risk of chromosomal abnormalities, including Down's Syndrome (Trisomy 21) and Trisomy 18, as well as open neural tube defects including spina bifida. Ultrasound examination is performed between 11 weeks and 13 weeks gestational age. Blood tests are drawn after the ultrasound and again later in the between 15 and 21 weeks gestational age. Please let your physician know if you are interested in this testing. It will require an appointment withour telecommunication tower technician. This is not an ultrasound performed by a physician in our office during a routine visit. SIGNS AND SYMPTOMS OF LABOR 1. Contractions every 10 minutes or more often 2. Clear, pink, or brownish fluid (water) leaking from vagina 3. Feeling that baby is pushing down, pressure 4. Low, dull backache 5. Cramps that feel like a period 6. Cramps with or without diarrhea If you notice any of the above symptoms, contact our office at [phone] and ask to speak with anurse. After hours, you can call doctors registry at [phone] OR call [facility] at [phone] ask to have the doctor shock absorption floor layer paged. If you consider this an emergency, dial 9--7 or go to your nearest emergency department. NEED HELP? Are you dealing with a violent or abusive relationship? Are you a victim of rape or sexual assult? Call [facility] ([place]) 24 hour Crisis Hotline: 889.158.7415 or 529-185-8040. MANUAL Your Guide to a Healthy manual is now on-line. Visit [email or web address] to download your free copy [facility] of Past illness Narrative* Problem Noted Date Resolved Date Dysmenorrhea 07/31/2011 06/30/2021 Knee pain 09/02/2009 07/31/2011 documented as of this encounter (statuses as of 08/21/2021) [facility] Narrative* Problem Noted Date Resolved Date Dysmenorrhea 07/31/2011 06/30/2021 Knee pain 09/02/2009 07/31/2011 documented as of this encounter (statuses as of 09/18/2021) [facility] Narrative* Problem Noted Date Resolved Date Dysmenorrhea 07/31/2011 06/30/2021 Knee pain 09/02/2009 07/31/2011 documented as of this encounter (statuses as of 09/18/2021) [facility] Narrative* Problem Noted Date Resolved Date Dysmenorrhea 07/31/2011 06/30/2021 Knee pain 09/02/2009 07/31/2011 documented as of this encounter (statuses as of 10/13/2021) [facility] Narrative* Problem Noted Date Resolved Date Dysmenorrhea 07/31/2011 06/30/2021 Knee pain 09/02/2009 07/31/2011 documented as of this encounter (statuses as of 11/10/2021) [facility] Narrative* Problem Noted Date Resolved Date Dysmenorrhea 07/31/2011 06/30/2021 Knee pain 09/02/2009 07/31/2011 documented as of this encounter (statuses as of 11/23/2021) [facility] Narrative* Problem Noted Date Resolved Date Dysmenorrhea 07/31/2011 06/30/2021 Knee pain 09/02/2009 07/31/2011 documented as of this encounter (statuses as of 12/08/2021) [facility] Narrative* Problem Noted Date Resolved Date Dysmenorrhea 07/31/2011 06/30/2021 Knee pain 09/02/2009 07/31/2011 documented as of this encounter (statuses as of 12/22/2021) [facility] Narrative* Problem Noted Date Resolved Date Dysmenorrhea 07/31/2011 06/30/2021 Knee pain 09/02/2009 07/31/2011 documented as of this encounter (statuses as of 01/02/2022) [facility] Narrative* Problem Noted Date Resolved Date Dysmenorrhea 07/31/2011 06/30/2021 Knee pain 09/02/2009 07/31/2011 documented as of this encounter (statuses as of 01/03/2022) [facility] Narrative* Problem Noted Date Resolved Date Dysmenorrhea 07/31/2011 06/30/2021 Knee pain 09/02/2009 07/31/2011 documented as of this encounter (statuses as of 01/03/2022) [facility] Narrative* Problem Noted Date Resolved Date Dysmenorrhea 07/31/2011 06/30/2021 Knee pain 09/02/2009 07/31/2011 documented as of this encounter (statuses as of 01/04/2022) [facility] Narrative* Problem Noted Date Resolved Date Dysmenorrhea 07/31/2011 06/30/2021 Knee pain 09/02/2009 07/31/2011 documented as of this encounter (statuses as of 01/05/2022) [facility] Narr[facility]* Problem Noted Date Resolved Date Dysmenorrhea 07/31/2011 06/30/2021 Knee pain 09/02/2009 07/31/2011 documented as of this encounter (statuses as of 01/05/2022) [facility] Narrative* Problem Noted Date Resolved Date Dysmenorrhea 07/31/2011 06/30/2021 Knee pain 09/02/2009 07/31/2011 documented as of this encounter (statuses as of 01/09/2022) [facility] Narrative* Problem Noted Date Resolved Date Dysmenorrhea 07/31/2011 06/30/2021 Knee pain 09/02/2009 07/31/2011 documented as of this encounter (statuses as of 01/12/2022) [facility] Narrative* Problem Noted Date Resolved Date Dysmenorrhea 07/31/2011 06/30/2021 Knee pain 09/02/2009 07/31/2011 documented as of this encounter (statuses as of 01/15/2022) [facility] Narrative* Problem Noted Date Resolved Date Dysmenorrhea 07/31/2011 06/30/2021 Knee pain 09/02/2009 07/31/2011 documented as of this encounter (statuses as of 01/30/2022) [facility] Diagnosis 16 weeks gestation of - Primary state, incidental with history of section, antepartum Encounter for supervision of other normal in second trimester [facility] Diagnosis 20 weeks gestation of - Primary state, incidental with history of section, antepartum High-risk in second trimester [facility]* Diagnosis Encounter for anatomic survey- Primary 20 weeks gestation of state, incidental [facility] Diagnosis with history of section, antepartum- Primary 24 weeks gestation of state, incidental [facility]* Diagnosis Need for Tdap vaccination- Primary Need for prophylactic vaccination with combined ihhqwgbyqg-[id number] (DTP) vaccine Encounter for supervision of other normal in third trimester 28 weeks gestation of state, incidental [facility]* Diagnosis Encounter for supervision of other normal in third trimester- Primary History of gestational hypertension with history of section, antepartum 29 weeks gestation of state, incidental [facility]* Diagnosis Encounter for supervision of other normal in third trimester- Primary 32 weeks gestation of state, incidental [facility]* Diagnosis 34 weeks gestation of - Primary state, incidental Encounter for supervision of other normal in third trimester History of gestational hypertension documented [facility]* Diagnosis Pre-eclampsia in third trimester- Primary Mild or unspecified pre-eclampsia, antepartum with history of section, antepartum 35 weeks gestation of state, incidental [facility]* Diagnosis Pre-eclampsia in third trimester- Primary Mild or unspecified pre-eclampsia, antepartum [facility]* Diagnosis 36 weeks gestation of - Primary state, incidental Pre-eclampsia in third trimester Mild or unspecified pre-eclampsia, antepartum Supervision of high risk in third trimester Unspecified high-risk documented [facility]* Diagnosis History of gestational hypertension- Primary Pre-eclampsia in third trimester Mild or unspecified pre-eclampsia, antepartum 36 weeks gestation of state, incidental Lactating mother care and examination of lactating mother documented [facility] this encounter [facility]* Diagnosis 36 weeks gestation of - Primary state, incidental Pre-eclampsia in third trimester Mild or unspecified pre-eclampsia, antepartum Supervision of high risk in third trimester Unspecified high-risk documented [facility]* Diagnosis exam- Primary Routine follow-up documented in this encounter [facility]* Diagnosis care in first trimester- Primary documented in this encounter [facility] note* Diagnosis Encounter for (NT) nuchal translucency scan- Primary Other specified screening H/O pre-eclampsia in prior , currently with other poor obstetric history with history of section, antepartum 11 weeks gestation of state, incidental documented in this encounter [facility] note* Diagnosis with history of section, antepartum- Primary Supervision of high risk in second trimester Unspecified high-risk documented in this encounter [facility] note* Diagnosis 19 weeks gestation of - Primary state, incidental with history of section, antepartum Supervision of high risk in second trimester Unspecified high-risk H/O pre-eclampsia in prior , currently with other poor obstetric history documented in this encounter [facility] note* Diagnosis 27 weeks gestation of - Primary state, incidental Need for vaccination Need for prophylactic vaccination and inoculation against unspecified single disease Supervision of other high risk pregnancies, third trimester documented in this encounter [facility] note* Diagnosis Encounter for ultrasound to check growth- Primary Encounter for routine screening for malformation using ultrasonics Supervision of other high risk pregnancies, third trimester 32 weeks gestation of state, incidental documented in this encounter [facility] note* Diagnosis with history of section, antepartum- Primary 34 weeks gestation of state, incidental documented in this encounter [facility] note* Diagnosis with uncertain dates in first trimester documented in this encounter [facility] for referral (narrative)* Outpatient Procedure (Routine) - Pending Review Specialty Diagnoses / Procedures Referred By Yordy monroe Referred To Contact [facility] Diagnoses 35 weeks gestation of Pre-eclampsia in third trimester Procedures NON-STRESS TEST NON-STRESS TEST Jack Acosta MD [address] [place] [address] [address] Referral ID Status Reason Start Date Expiration Date Visits Requested Visits Authorized [id number] Pending Review Auto-Generat ed Referral 01/03/2022 01/03/2023 1 1 [facility] for referral (narrative)* Diagnostic Procedure Only (Routine) - Authorized Specialty Diagnoses / Procedures Referred By Contac t Referred To Contact [facility] Diagnoses Pre-eclampsia in third trimester Procedures OBSTETRIC ULTRASOUND WHI US PREG UTERUS AFTER 1ST TRIMEST 1 GESTATION Parvin Randle MD [address] [place] [address] [id number] [place] [address] Referral ID Status Reason Start Date Expiration Date Visits Requested Visits Authorized [id number] Authorized Auto-Generat ed Referral 01/03/2022 01/03/2023 1 1 [facility] for referral (narrative)* Diagnostic Procedure Only (Routine) - Pending Review Specialty Diagnoses / Procedures Referred By Contac t Referred To Contact [facility] Diagnoses 27 weeks gestation of Need for vaccination Supervision of other high risk pregnancies, third trimester Procedures OBSTETRIC ULTRASOUND WHI US PREG UTERUS AFTER 1ST TRIMEST 1 GESTATION Parvin Randle MD [address] [place] [address] [facility] [address] [place] [address] Referral ID Status Reason Start Date Expiration Date Visits Requested Visits Authorized [id number] Pending Review Auto-Generat ed Referral 03/27/2023 03/26/2024 1 1 [facility] Advance Directives No Advanced Directives Records FoundDocuments on File 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 Given 01/03/2022 3:30 PM EDT 12 mg Butto cks, Left Health Concerns Problem Noted Date [facility] - COMMON 12/2022 Problem Noted Date Diagnosed Date [facility] - COMM[facility] 11/01/2022 Problem Noted Date Diagnosed Date [facility] - COMMON 11/01/2022 Problem Noted Date Diagnosed Date [facility] - COMMON 11/01/2022 Problem Noted Date Diagnosed Date [facility] - COMMON 11/01/2022 Problem Noted Date Diagnosed Date [facility] - COMMON 11/01/2022 Problem Noted Date Diagnosed Date [facility] - COMMON 11/01/2022 Summary Purpose Family History No Family History Records Found Additional Source Comments Source Comments (unrecognize d section and content) In the event this informatio n is protected by the Federal Confidentiality of Alcohol and Drug Abuse Patient Records regulations: The Federal rules restrict any use of the information to criminally investigate or prosecute any alcohol or drug abuse patient.[facility] SystemIn the event this information is protected by the Federal Confidentiality of Alcohol and Drug Abuse Patient Records regulations: The Federal rules restrict any use of the information to criminally investigate or prosecute any alcohol or drug abuse patient.[facility] SystemIn the event this information is protected by the Federal Confidentiality of Alcohol and Drug Abuse Patient Records regulations: The Federal rules restrict any use of the information to criminally investigate or prosecute any alcohol or drug abuse patient.[facility] SystemIn the event this information is protected by the Federal Confidentiality of Alcohol and Drug Abuse Patient Records regulations: The Federal rules restrict any use of the information to criminally investigate or prosecute any alcohol or drug abuse patient.[facility] SystemIn the event this information is protected by the Federal Confidentiality of Alcohol and Drug Abuse Patient Records regulations: The Federal rules restrict any use of the information to criminally investigate or prosecute any alcohol or drug abuse patient.[facility] SystemIn the event this information is protected by the Federal Confidentiality of Alcohol and Drug Abuse Patient Records regulations: The Federal rules restrict any use of the information to criminally investigate or prosecute any alcohol or drug abuse patient.[facility] SystemIn the event this information is protected by the Federal Confidentiality of Alcohol and Drug Abuse Patient Records regulations: The Federal rules restrict any use of the information to criminally investigate or prosecute any alcohol or drug abuse patient.[facility] SystemIn the event this information is protected by the Federal Confidentiality of Alcohol and Drug Abuse Patient Records regulations: The Federal rules restrict any use of the information to criminally investigate or prosecute any alcohol or drug abuse patient.[facility] SystemIn the event this information is protected by the Federal Confidentiality of Alcohol and Drug Abuse Patient Records regulations: The Federal rules restrict any use of the information to criminally investigate or prosecute any alcohol or drug abuse patient.[facility] SystemIn the event this information is protected by the Federal Confidentiality of Alcohol and Drug Abuse Patient Records regulations: The Federal rules restrict any use of the information to criminally investigate or prosecute any alcohol or drug abuse patient.[facility] SystemIn the event this information is protected by the Federal Confidentiality of Alcohol and Drug Abuse Patient Records regulations: The Federal rules restrict any use of the information to criminally investigate or prosecute any alcohol or drug abuse patient.[facility] SystemIn the event this information is protected by the Federal Confidentiality of Alcohol and Drug Abuse Patient Records regulations: The Federal rules restrict any use of the information to criminally investigate or prosecute any alcohol or drug abuse patient.[facility] SystemIn the event this information is protected by the Federal Confidentiality of Alcohol and Drug Abuse Patient Records regulations: The Federal rules restrict any use of the information to criminally investigate or prosecute any alcohol or drug abuse patient.[facility] SystemIn the event this information is protected by the Federal Confidentiality of Alcohol and Drug Abuse Patient Records regulations: The Federal rules restrict any use of the information to criminally investigate or prosecute any alcohol or drug abuse patient.[facility] SystemIn the event this information is protected by the Federal Confidentiality of Alcohol and Drug Abuse Patient Records regulations: The Federal rules restrict any use of the information to criminally investigate or prosecute any alcohol or drug abuse patient.[facility] SystemIn the event this information is protected by the Federal Confidentiality of Alcohol and Drug Abuse Patient Records regulations: The Federal rules restrict any use of the information to criminally investigate or prosecute any alcohol or drug abuse patient.[facility] SystemIn the event this information is protected by the Federal Confidentiality of Alcohol and Drug Abuse Patient Records regulations: The Federal rules restrict any use of the information to criminally investigate or prosecute any alcohol or drug abuse patient.[facility] SystemIn the event this information is protected by the Federal Confidentiality of Alcohol and Drug Abuse Patient Records regulations: The Federal rules restrict any use of the information to criminally investigate or prosecute any alcohol or drug abuse patient.[facility] SystemIn the event this information is protected by the Federal Confidentiality of Alcohol and Drug Abuse Patient Records regulations: The Federal rules restrict any use of the information to criminally investigate or prosecute any alcohol or drug abuse patient.[facility] SystemIn the event this information is protected by the Federal Confidentiality of Alcohol and Drug Abuse Patient Records regulations: The Federal rules restrict any use of the information to criminally investigate or prosecute any alcohol or drug abuse patient.[facility] SystemIn the event this information is protected by the Federal Confidentiality of Alcohol and Drug Abuse Patient Records regulations: The Federal rules restrict any use of the information to criminally investigate or prosecute any alcohol or drug abuse patient.[facility] SystemIn the event this information is protected by the Federal Confidentiality of Alcohol and Drug Abuse Patient Records regulations: The Federal rules restrict any use of the information to criminally investigate or prosecute any alcohol or drug abuse patient.[facility] the event this information is protected by the Federal Confidentiality of Alcohol and Drug Abuse Patient Records regulations: The Federal rules restrict any use of the information to criminally investigate or prosecute any alcohol or drug abuse patient.[facility] SystemIn the event this information is protected by the Federal Confidentiality of Alcohol and Drug Abuse Patient Records regulations: The Federal rules restrict any use of the information to criminally investigate or prosecute any alcohol or drug abuse patient.[facility] SystemIn the event this information is protected by the Federal Confidentiality of Alcohol and Drug Abuse Patient Records regulations: The Federal rules restrict any use of the information to criminally investigate or prosecute any alcohol or drug abuse patient.[facility] SystemIn the event this information is protected by the Federal Confidentiality of Alcohol and Drug Abuse Patient Records regulations: The Federal rules restrict any use of the information to criminally investigate or prosecute any alcohol or drug abuse patient.[facility] SystemIn the event this information is protected by the Federal Confidentiality of Alcohol and Drug Abuse Patient Records regulations: The Federal rules restrict any use of the information to criminally investigate or prosecute any alcohol or drug abuse patient.[facility] SystemIn the event this information is protected by the Federal Confidentiality of Alcohol and Drug Abuse Patient Records regulations: The Federal rules restrict any use of the information to criminally investigate or prosecute any alcohol or drug abuse patient.[facility] Reason for Visit (unrecogniz ed section and content) Reason Onset Date Comments Care 09/18/2021 Reason Comments US Specialty Diagnoses / Procedures Referred By Yordy monroe Referred To Contact [facility] Diagnoses with history of section, antepartum Encounter for screening of mother Procedures OBSTETRIC ULTRASOUND WHI US PREG UTERUS AFTER 1ST TRIMEST GESTATION Parvin Randle MD [address] [place] [address] [facility] [address] [place] [address] Referral ID Status Reason Start Date Expiration Date V isits Requested Visits Authorized [id number] Closed Auto-Generate d Referral 07/24/2021 07/24/2022 1 1 Reason Onset Date Comments Care 10/13/2021 Reason Onset Date Comments Care 11/10/2021 Reason Onset Date Comments Care 11/23/2021 Reason Onset Date Comments Care 12/08/2021 Reason Onset Date Comments Care 12/22/2021 Reason Comments OB SOB, Elevated BP Reason Onset Date Comments Care 01/03/2022 Reason Comments Orders Ultrasound Reason Onset Date Comments Care 01/05/2022 Reason Onset Date Comments Care 01/09/2022 Reason Comments Ob Delivery Note Reason Comments Orders support Reason Comments Early Incision check Reason Comments Care Specialty Diagnoses / Procedures Referred By Contac t Referred To Contact [facility] Diagnoses with uncertain dates in first trimester affected by intrauterine growth restriction (IUGR) H/O pre-eclampsia in prior , currently with history of section, antepartum Procedures NUCHAL TRANSLUCENCY WHI US NUCHAL TRANSLUCENCY 1ST GESTATION Juan Luis Denson MD [address] [place] [address] [address] Referral ID Status Reason Start Date Expiration Date V isits Requested Visits Authorized [id number] Closed Auto-Generate d Referral 11/05/2022 11/05/2023 1 1 Reason Onset Date Comments Care 01/02/2023 Reason Onset Date Comments Care 01/30/2023 Reason Onset Date Comments Care 03/27/2023 Specialty Diagnoses / Procedures Referred By Contac t Referred To Contact [facility] Diagnoses 27 weeks gestation of Need for vaccination Supervision of other high risk pregnancies, third trimester Procedures OBSTETRIC ULTRASOUND WHI US PREG UTERUS AFTER 1ST TRIMEST GESTATION Parvin Randle MD [address] [place] [address] [facility] [address] [place] [id number] Referral ID Status Reason Start Date Expiration Date Visits Requested Visits Authorized [id number] Authorized Auto-Generat ed Referral 3 05/26/2023 20 20 Reason Comments OB elevated BP Reason Comments Breast Pump Reason Onset Date Comments Care 05/09/2023 Reason Comments Refill Request Care Teams (unrecognized sec tion and content) 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 Relationship Specialty Start Date End Date Aria Yap MD PCP - General 08/02/06 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 Relationship Specialty Start Date End Date Aria Yap MD PCP - General 08/02/06 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 Relationship Specialty Start Date End Date Aria Yap MD PCP - General 08/02/06 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 Relationship Specialty Start Date End Date Aria Yap MD PCP - General 08/02/06 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 Relationship Specialty Start Date End Date Aria Yap MD PCP - General 08/02/06 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 Relationship Specialty Start Date End Date Aria Yap MD PCP - General 08/02/06 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 Relationship Specialty Start Date End Date Aria Yap MD PCP - General 08/02/06 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 Relationship Specialty Start Date End Date Aria Yap MD PCP - General 08/02/06 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 Relationship Specialty Start Date End Date Aria Yap MD PCP - General 08/02/06 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 Relationship Specialty Start Date End Date Aria Yap MD PCP - General 08/02/06 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 Relationship Specialty Start Date End Date Aria Yap MD PCP - General 08/02/06 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 Relationship Specialty Start Date End Date Aria Yap MD PCP - General 08/02/06 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 Relationship Specialty Start Date End Date Aria Yap MD PCP - General 08/02/06 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 Relationship Specialty Start Date End Date Aria Yap MD PCP - General 08/02/06 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 Relationship Specialty Start Date End Date Aria Yap MD PCP - General 08/02/06 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 Relationship Specialty Start Date End Date Aria Yap MD PCP - General 08/02/06 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 Relationship Specialty Start Date End Date Aria Yap MD 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 08/02/06 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 Relationship Specialty Start Date End Date Aria Yap MD [facility] General 08/02/06 INFORMATION SOURCE (unrecogn ized section and content) FOR RECORDS PERTAINING TO PATIENTS WHO ARE OR HAVE BEEN ENROLLED IN A CHEMICAL DEPENDENCY/SUBSTANCEABUSE PROGRAM, SOME INFORMATION MAY BE OMITTED. This clinical summary was aggregated from multiple sources. Caution should be exercised in using it in the provision of clinical care. This summary normalizes information from multiple sources, and as a consequence, information in this document may materially change the coding, format and clinical context of patient data. In addition, data may be omitted in some cases. CLINICAL DECISIONS SHOULD BE BASED ON THE PRIMARY CLINICAL RECORDS. [facility]. provides no warranty or guarantee of the accuracy or completeness of information in this document.
[2023-05-26 19:07] VITALS: PULSE 90; TEMP 36.7; O2SAT 98
[2023-05-26 19:08] VITALS: BP 130/70; PULSE 92; O2SAT 98
[2023-05-26 19:39] VITALS: BMI 28.0
--- NOTE | 2023-05-30 15:07 | OB.TRI.NOTE ---
HPI - General General Date of Admission: 05/26/23 Date of Service: 05/26/23 HPI Narrative RITA DELGADO, is a 33 F who presents c/o lower abdominal pain and vaginal discharge Maternal Data Information Final HASEEB: 06/20/23 Gestational age: 36 3/7 PFSH PFS Medical History (Updated 05/30/23 @ 15:[address] Danii Anderson MD) COVID-19 affecting in first trimester Gestational HTN Placental abruption Preeclampsia Home Medications 1 tab PO/SL DAILY 01/02/22 [History Last Taken 05/25/23] aspirin 81 mg capsule 81 mg PO DAILY 05/26/23 [History Last Taken Unknown] Allergy/AdvReac Type Severity Reaction Status Date / Time No Known Allergies Allergy Verified 05/26/23 19:52 Family History Unknown Fragile X syndrome Surgical History (Updated 01/14/22 @ 09:27 by Shahla Blake CNM) History of tonsillectomy History of tonsillectomy and adenoidectomy Social History Smoking Status: Never smoker History 2 Elective abortions Hx Para 2 Spontaneous abortions Hx # Term Pregnancies Ectopic pregnancies Hx # Pregnancies Multiple births # of living children 2 NST FHR Rate Baby A Baseline: 135 Variability:: Moderate Accelerations:: 15 x 15 Decelerations:: None NST Reactive:: Yes FHR Category:: Category I Uterine Activity:: irritability Assessment & Plan (1) 36 weeks gestation of : PLAN: Patient with some vaginal discharge and lower abdominal pain. No evidence of rupture membranes or labor. Discharged home to follow-up as needed or as scheduled in the office. (2) Previous delivery affecting : (3) High risk multigravida in third trimester:
== END 2023-05-26 20:03 | disposition home or self-care (01) ==
LOC: WPOUT 18:50 → WP 18:50
PROVIDERS: Referring Provider Advanced Practice Midwife; Visit Provider Advanced Practice Midwife
DX: O99.891 Other specified diseases and conditions complicating pregnancy (principal); R10.30 Lower abdominal pain, unspecified; N89.8 Other specified noninflammatory disorders of vagina; O14.93 Unspecified pre-eclampsia, third trimester; Z79.82 Long term (current) use of aspirin; Z3A.36 36 weeks gestation of pregnancy
CPT/HCPCS: 59025; 59050; 99221; G0378

== ENCOUNTER 2023-06-13 09:35 | Inpatient (IN) | payer OTHER, SELFPAY ==
--- NOTE | 2023-06-06 11:01 | PCM.HP.BLA ---
History and Physical Date of Admission: 06/14/23 HPI: The patient is a 33 year old female presenting for pre-operative visit. She is scheduled for and and tubal steriliation, for previous c/s and sterilization request on 06/13/23. Procedure discussed along with risks, benefits and complications. Other alternatives discussed for management. Consent form signed? Yes. ? ? PAST MEDICAL HISTORY PAST MEDICAL HISTORY Diagnosis Date ? Gestational hypertension ? ? Placental abruption ? ? Pre-eclampsia in third trimester 01/03/2022 ? ? PAST SURGICAL HISTORY PAST SURGICAL HISTORY Procedure Laterality Date ? SNGL ? 12/05/2019 ? x2 ? HSG Bilateral ? ? [facility]- b/l tubes patent- Dr. adame ? PAST SURGICAL HISTORY OF ? ? ? sebaceous nevus on scalp ? TONSILLECTOMY & ADENOIDECTOMY AGE 13/> ? CURRENT MEDICATIONS Current Outpatient Medications Medication Sig Dispense Refill ? 28 mg iron- 800 mcg tab take 1 tablet by mouth every day 30 tablet 6 ? famotidine (PEPCID) 40 mg tablet Take 0.5 tablets by mouth two times a day. 30 tablet 2 ? aspirin, enteric coated (ASPIRIN, ENTERIC COATED) 81 mg EC tablet Take 81 mg by mouth once daily. ? ? ? ondansetron (ZOFRAN) 4 mg tablet Take 1 tablet by mouth every 8 hours as needed. (Patient not taking: Reported on 03/27/2023) 30 tablet 0 ? No current facility-administered medications for this visit. ? ? ALLERGIES: Patient has no known allergies. ? PERSONAL HISTORY: SOCIAL HISTORY Social History ? Tobacco Use ? Smoking status: Never ? Smokeless tobacco: Never Vaping Use ? Vaping Use: Never used Substance Use Topics ? Alcohol use: No ? Drug use: No ? FAMILY HISTORY: FAMILY HISTORY FAMILY HISTORY Problem Relation Age of Onset ? No Known Problems Mother ? ? Asthma Father ? ? No Known Problems Brother ? ? No Known Problems Brother ? ? Cancer Maternal Grandmother ? ? Heart Maternal Grandfather ? ? Heart Paternal Grandfather ? ? No Known Problems Daughter ? ? No Known Problems Daughter ? ? ? REVIEW OF SYMPTOMS: GENERAL: denies fevers or chills ENDOCRINOLOGY: has not been on steroids Cardiology : denies palpitations or chest pain Respiratory: denies SOB or cough Hematology: denies history of prolonged bleeding or easy bruising or VTE Allergy: Denies history of personal or family history of allergy to anesthesia ? PHYSICAL EXAMINATION: ? VITALS: Last menstrual period 09/04/2022, not currently . ? GENERAL: The patient is well nourished, well hydrated in no acute distress. , The patient is oriented to time, place, and person. NECK: Supple. No lynphadenopathy, normal thyroid, no thyromegaly. LUNGS: Clear to auscultation bilaterally. no wheezes, rhonchi or rales HEART: Regular rate and rhythm, Normal heart sounds, and No murmurs or gallops GENITALIA: Normal external genitalia, Urethral meatus normal, Bladder nontender, normal vagina and normal vaginal tone, normal cervix, normal uterus, size and consistency, normal adnexa without masses or tenderness, and perineum WNL ? ? IMPRESSION: Estimated Date of Delivery: 06/20/23 38w0d h/o previous c/s, sterilization request ? PLAN: Risks, benefits and alternatives to sterilization and repeat c/s have been discussed with the patient. She declines reversible options including LARC. She understands sterilization is permanent, irreversible, risks of failure, regret and ectopic. In addition she understands there are surgical risks as well. Her questions were answered to her satisfaction and consent was signed ? ? I have reviewed and updated past medical and surgical history, medications and allergies
[2023-06-13] VITALS (39 sets, daily range): BP systolic 95–130; BP diastolic 53–77; PULSE 64–93; RESP 11–22; TEMP 36.2–36.8; O2SAT 93–100; BMI 29.0
[2023-06-13] MEDS: Acetaminophen 500 MG Tablet 1000 MG PO ×2 (10:03→17:34)
[2023-06-13] MEDS: Lactated Ringers 1,000 ML 999 ML IV (10:05)
--- OUTSIDE RECORDS SUMMARY | 2023-06-13 10:07 | XMS RPT_ITS | CCD ---
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 Name Role Phone Aria Yap MD Primary Care Provider [phone] YAP, ARIA K Primary Care Unavailable YAP, ARIA K Primary Care Unavailable PARVIN RANDLE Referring Unavailable WISWELL, JUAN LUIS Attending Unavailable YAP, ARIA K Primary Care Unavailable PARVIN RANDLE Attending Unavailable YAP, ARIA K Primary Care Unavailable WISWELL, JUAN LUIS Referring Unavailable YAP, ARIA K Primary Care Unavailable YAP, ARIA K Primary Care Unavailable PARVIN RANDLE Attending Unavailable YAP, ARIA K Primary Care Unavailable NEDAYLINT JACK GRANADO Referring Unavail able YAP, ARIA K Primary Care Unavailable PARVIN RANDLE Attending Unavailable YAP, ARIA K Primary Care Unavailable WISWELL, JUAN LUIS Attending Unavailable YAP, ARIA K Primary Care Unavailable PARVIN RANDLE Attending Unavailable YAP, ARIA K Primary Care Unavailable NEDAYLINT JACK GRANADO Referring Unavail able YAP, ARIA K Primary Care Unavailable PARVIN RANDLE Attending Unavailable YAP, ARIA K Primary Care Unavailable NEJACK SANTIAGO Attending Unavail able YAP, ARIA K Primary Care Unavailable NEJACK SANTIAGO Attending Unavail able YAP, ARIA K Primary Care Unavailable PARVIN RANDLE Attending Unavailable YAP, ARIA K Primary Care Unavailable WISWELL, JUAN LUIS Referring Unavailable YAP, ARIA K Primary Care Unavailable NEYNELLAT JACK GRANADO Attending Unavail able WISWELL, JUAN LUIS Referring Unavailable YAP, ARIA K Primary Care Unavailable NEYNELLAT GUANAKO GRANADORE Referring Unavail able MARSHALL FOSTER Attending Unavailable YAP, ARIA K Primary Care Unavailable YAP, ARIA K Primary Care Unavailable WISWELL, JUAN LUIS Referring Unavailable YAP, ARIA K Primary Care Unavailable NEYNELLAT GUANAKO GRANADORE Referring Unavail able YAP, ARIA K Primary Care Unavailable PARVIN RANDLE Attending Unavailable JACK ACOSTA Referring Unavail able Medications Completed/Discontinued Medications Medication Drug Class(es) Dates [...] Date Time Vital Sign Value Performing Clinician Faridehi marline 05-09-2023 09:58-0500 Body weight 78.38 kg Marshall Foster MD Work Phone: [facility] 05-09-2023 09:58-0500 Diastolic blood pressure 50 mm[Hg] Marshall Foster MD Work Phone: [facility] 05-09-2023 09:58-0500 Systolic blood pressure 92 mm[Hg] Marshall Foster MD Work Phone: [facility] 03-27-2023 08:46-0400 Body weight 76.2 kg Parvin Randle MD Work Phone: [facility] 03-27-2023 08:46-0400 Diastolic blood pressure 58 mm[Hg] Parvin Randle MD Work Phone: [facility] 03-27-2023 08:46-0400 Systolic blood pressure 106 mm[Hg] Parvin Randle MD Work Phone: [facility] 01-30-2023 10:22-0400 Body weight 73.03 kg Parvin Randle MD Work Phone: [facility] 01-30-2023 10:22-0400 Diastolic blood pressure 72 mm[Hg] Parvin Randle MD Work Phone: [facility] 01-30-2023 10:22-0400 Systolic blood pressure 108 mm[Hg] Parvin Randle MD Work Phone: [facility] 01-02-2023 11:16-0400 Body weight 73.48 kg Parvin Randle MD Work Phone: [facility] 01-02-2023 11:16-0400 Diastolic blood pressure 68 mm[Hg] Parvin Randle MD Work Phone: [facility] 01-02-2023 11:16-0400 Systolic blood pressure 102 mm[Hg] Parvin Randle MD Work Phone: [facility] 01-30-2022 11:29-0400 Body weight 74.3 kg Parvin Randle MD Work Phone: [facility] 01-30-2022 11:29-0400 Diastolic blood pressure 60 mm[Hg] Parvin Randle MD Work Phone: [facility] 01-30-2022 11:29-0400 Systolic blood pressure 102 mm[Hg] Parvin Randle MD Work Phone: [facility] 01-09-2022 11:36-0400 Body weight 80.29 kg Parvin Randle MD Work Phone: [facility] 01-09-2022 11:36-0400 Diastolic blood pressure 80 mm[Hg] Parvin Randle MD Work Phone: [facility] 01-09-2022 11:36-0400 Heart rate 110 /min Parvin Randle MD Work Phone: [facility] 01-09-2022 11:36-0400 Systolic blood pressure 124 mm[Hg] Parvin Randle MD Work Phone: [facility] 01-05-2022 10:15-0400 Body weight 81.38 kg Juan Luis Denson MD Work Phone: [facility] 01-05-2022 10:15-0400 Diastolic blood pressure 60 mm[Hg] Juan Luis Denson MD Work Phone: [facility] 01-05-2022 10:15-0400 Systolic blood pressure 120 mm[Hg] Juan Luis Denson MD Work Phone: [facility] 01-03-2022 15:14-0400 Diastolic blood pressure 64 mm[Hg] Jack Granado MD Work Phone: [facility] 01-03-2022 15:14-0400 Systolic blood pressure 110 mm[Hg] Jack Granado MD Work Phone: [facility] 12-22-2021 08:35-0400 Body weight 82.1 kg Parvin Randle MD Work Phone: [facility] 12-22-2021 08:35-0400 Diastolic blood pressure 60 mm[Hg] Parvin Randle MD Work Phone: [facility] 12-22-2021 08:35-0400 Systolic blood pressure 108 mm[Hg] Parvin Randle MD Work Phone: [facility] 12-08-2021 10:11-0400 Body weight 80.74 kg Jack Granado MD Work Phone: [facility] 12-08-2021 10:11-0400 Diastolic blood pressure 64 mm[Hg] Jack Granado MD Work Phone: [facility] 12-08-2021 10:11-0400 Systolic blood pressure 112 mm[Hg] Jack Granado MD Work Phone: [facility] 11-23-2021 09:42-0400 Body weight 78.93 kg Jack Granado MD Work Phone: [facility] 11-23-2021 09:42-0400 Diastolic blood pressure 58 mm[Hg] Jack Granado MD Work Phone: [facility] 11-23-2021 09:42-0400 Systolic blood pressure 110 mm[Hg] Jack Granado MD Work Phone: [facility] 11-10-2021 11:18-0400 Body weight 77.56 kg Parvin Randle MD Work Phone: [facility] 11-10-2021 11:18-0400 Diastolic blood pressure 60 mm[Hg] Parvin Randle MD Work Phone: [facility] 11-10-2021 11:18-0400 Systolic blood pressure 112 mm[Hg] Parvin Randle MD Work Phone: [facility] 10-13-2021 10:55-0400 Body weight 74.39 kg Jack Granado MD Work Phone: [facility] 10-13-2021 10:55-0400 Diastolic blood pressure 60 mm[Hg] Jack Granado MD Work Phone: [facility] 10-13-2021 10:55-0400 Systolic blood pressure 100 mm[Hg] Jack Granado MD Work Phone: [facility] 09-18-2021 14:42-0400 Body weight 73.03 kg Parvin Randle MD Work Phone: [facility] 09-18-2021 14:42-0400 Diastolic blood pressure 60 mm[Hg] Parvin Randle MD Work Phone: [facility] 09-18-2021 14:42-0400 Systolic blood pressure 112 mm[Hg] Parvin Randle MD Work Phone: [facility] 08-21-2021 16:17-0400 Body weight 72.12 kg Parvin Randle MD Work Phone: [facility] 08-21-2021 16:17-0400 Diastolic blood pressure 60 mm[Hg] Parvin Randle MD Work Phone: [facility] 08-21-2021 16:17-0400 Systolic blood pressure 102 mm[Hg] Parvin Randle MD Work Phone: [facility] Encounters Encounter Date Encounter Type Care Provider Facility Start: 06-06-2023 End: 06-06-2023 ambulatory [facility] Facility:[facility] Start: 06-03-2023 End: 06-03-2023 ambulatory [facility] Facility:[facility] Start: 05-31-2023 End: 05-31-2023 ambulatory [facility] Facility:[facility] Start: 05-23-2023 End: 05-23-2023 ambulatory [facility] Facility:[facility] Start: 05-12-2023 Mindi Moctezuma Work Phone: OB/Gynecology Procedures Date Procedure Procedure Detail Performing Clinician Start: 05-09-2023 URINE OB DIP B/O Marshall Foster MD Work Phone: Start: 04-25-2023 Us preg uterus after 1st trimest 1/ gestation Parvin Randle MD Work Phone: Start: 03-27-2023 URINE OB DIP B/O Kirk Randle MD Work Phone: Start: 01-30-2023 URINE OB DIP B/O Kirk Randle MD Work Phone: Start: 01-02-2023 Antibody screen ARIA DE GUZMAN Plan of Treatment Date Care Activity Detail Author Start: 03-27-2033 Urine microalbumin profile DTaP,Tdap,Td Vaccine (10 - Td or Tdap) [facility] Start: 11-11-2031 Urine microalbumin profile DTAP,TDAP,TD (8 - Td or Tdap) [facility] Start: 02-10-2026 HPV TESTING HPV TESTING [facility] Start: 02-10-2026 PAP TESTING PAP TESTING [facility] Start: 02-10-2026 Screening for malignant neoplasm of cervix [facility] Start: 03-27-2023 End: 03-27-2024 OBSTETRIC ULTRASOUND [facility] OBSTETRIC ULTRASOUND [facility] Anc Imaging Routine 27 weeks gestation of Need for vaccination Supervision of other high risk pregnancies, third trimester Expected: 03/27/2023, Expires: 03/27/[address] [facility] Work Phone: Immunizations Immunization Date Immunization Notes Care Provider Fa keren 04-25-2023 respiratory syncytia l virus (RSV) vaccine, bivalent (ABRYSVO) Ob Ultrasound Work Phone: [facility] 03-27-2023 tetanus toxoid, redu osman diphtheria toxoid, and acellular pertussis vaccine, adsorbed Parvin Randle MD Work Phone: [facility] Work Phone: 02-27-2023 influenza, injectabl e, quadrivalent, contains preservative Parvin Randle MD Work Phone: [facility] 11-10-2021 tetanus toxoid, redu osman diphtheria toxoid, and acellular pertussis vaccine, adsorbed Parvin Randle MD Work Phone: [facility] 10-19-2020 COVID-19 vaccine, ag e 12+ yr (PFIZER-BIONTECH - PURPLE TOP) Parvin Randle MD Work Phone: [facility] 09-28-2020 COVID-19 vaccine, ag e 12+ yr (PFIZER-BIONTECH - PURPLE TOP) Parvin Randle MD Work Phone: [facility] 07-30-2018 influenza, injectabl e, quadrivalent, preservative free Ob Ultrasound Work Phone: [facility] 07-30-2018 tetanus toxoid, redu osman diphtheria toxoid, and acellular pertussis vaccine, adsorbed Ob Ultrasound Work Phone: [facility] 07-30-2018 zoster vaccine recombinant Ob Ultrasound Work Phone: [facility] 12-21-2009 human papilloma viru s vaccine, quadrivalent Parvin Randle MD Work Phone: [facility] Work Phone: 12-21-2009 varicella virus vaccine Vira Randle MD Work Phone: [facility] Work Phone: 08-19-2009 HPV, unspecified formulation Parvin Randle MD Work Phone: [facility] Work Phone: 08-18-2009 varicella virus vaccine Vira Randle MD Work Phone: [facility] Work Phone: 06-01-2009 HPV, unspecified formulation Parvin Randle MD Work Phone: [facility] Work Phone: 06-01-2009 meningococcal polysaccharide (groups A, C, Y and W-135) diphtheria toxoid conjugate vaccine (MCV4P) Parvin Randle MD Work Phone: [facility] Work Phone: 06-01-2009 tetanus toxoid, redu osman diphtheria toxoid, and acellular pertussis vaccine, adsorbed Parvin Randle MD Work Phone: [facility] Work Phone: 05-10-2009 novel Influenza-H1N1 -09, live virus for nasal administration Parvin Randle MD Work Phone: [facility] Work Phone: 03-22-2000 hepatitis B vaccine, pediatric or pediatric/adolescent dosage Parvin Randle MD Work Phone: [facility] Work Phone: 09-11-1999 hepatitis B vaccine, pediatric or pediatric/adolescent dosage Parvin Randle MD Work Phone: [facility] Work Phone: 07-26-1999 hepatitis B vaccine, pediatric or pediatric/adolescent dosage Parvin Randle MD Work Phone: [facility] Work Phone: 07-24-1996 diphtheria, tetanus toxoids and acellular pertussis vaccine, unspecified formulation Parvin Randle MD Work Phone: [facility] Work Phone: 07-24-1996 measles, mumps and rubella virus vaccine Parvin Randle MD Work Phone: [facility] Work Phone: 07-24-1996 trivalent poliovirus vaccine, live, oral Parvin Randle MD Work Phone: [facility] Work Phone: 04-13-1993 diphtheria, tetanus toxoids and acellular pertussis vaccine, unspecified formulation Parvin Randle MD Work Phone: [facility] Work Phone: 04-13-1993 trivalent poliovirus vaccine, live, oral Parvin Randle MD Work Phone: [facility] Work Phone: 07-28-1992 haemophilus influenz ae type b vaccine, conjugate unspecified formulation Parvin Randle MD Work Phone: [facility] Work Phone: 07-28-1992 measles, mumps and rubella virus vaccine Parvin Randle MD Work Phone: [facility] Work Phone: 1991 diphtheria, tetanus toxoids and pertussis vaccine Parvin Randle MD Work Phone: [facility] Work Phone: 1991 haemophilus influenz ae type b vaccine, conjugate unspecified formulation Parvin Randle MD Work Phone: [facility] Work Phone: 1991 diphtheria, tetanus toxoids and pertussis vaccine Parvin Randle MD Work Phone: [facility] Work Phone: 1991 haemophilus influenz ae type b vaccine, conjugate unspecified formulation Parvin Randle MD Work Phone: [facility] Work Phone: 1991 trivalent poliovirus vaccine, live, oral Parvin Randle MD Work Phone: [facility] Work Phone: 1991 diphtheria, tetanus toxoids and pertussis vaccine Parvin Randle MD Work Phone: [facility] Work Phone: 1991 haemophilus influenz ae type b vaccine, conjugate unspecified formulation Parvni Randle MD Work Phone: [facility] Work Phone: 1991 trivalent poliovirus vaccine, live, oral Parvin Randle MD Work Phone: [facility] Work Phone: Payers Date Payer Category Payer Unknown [id number] 2021 Private Health Insurance [employer] PPO [id number] 2021-Present [phone] [address] [place] [address] [facility] [id number] 2021 Private Health Insurance [id number] Social History Date Type Detail Facility Start: 07-31-2011 End: 01-30-2022 Tobacco smoking status NHIS Never smoked tobacco [facility] Work Phone: Start: 08-21-2021 End: 05-09-2023 Alcohol intake Current non-drinker of alcohol (finding) [facility] Start: 06-15-[address] [facility] Start: 05-12-2021 [facility] Start: 1990 Sex Assigned At Not on file [facility] Start: 08-11-2021 End: 01-09-2022 Exposure to SARS-CoV-2 (event) Not sure [facility] Start: 07-31-2011 End: 01-30-2022 Tobacco use and exposure Smokeless tobacco non-user [facility] Start: 11-01-2022 End: 11-05-2022 History of [address] function [facility] Start: 11-01-2022 End: 11-05-[address] [facility] National Score (1-100), lower number is lower risk 56 [facility] Start: 06-25-2021 Gender identity Identifies as female gender (finding) [facility] Goals Date Patient Goal Desired Activity /State [...] 1 tablet by mouth every day Celia Saunders RN documented in this encounter [facility] 05-09-2023 Miscellaneous Notes Formattin g of this [...] Marshall Foster MD documented in this encounter [facility] 05-09-2023 Instructions s Deidre York - 05/09/2023 9:54 AM EST SEQUENTIAL SCREENINGS The [facility] offers sequential screenings for women who are [...] It will require an appointment with our sanitation technician. This is not an ultrasound performed [...] the above symptoms, contact our office at [phone] and ask to speak with a nurse. After hours, you can call doctors registry at [phone] OR call [facility] at [phone] and ask to have the doctor consumer safety officer paged. If you consider this an emergency, dial 9-1-5 or go to your nearest emergency department. NEED HELP? Are you dealing with a violent or abusive relationship? Are you a victim of rape or sexual assult? Call [facility] ([place]) 24 hour Crisis Hotline: 436.943.8725 or 801-699-5253. MANUAL Your Guide to a Healthy manual is now on-line. Visit [email or web address] to download your free copy documented in this encounter [facility] 05-06-2023 Miscellaneous Notes Formattin g of this note might be different from the original. Order signed and faxed. Gely Munoz RN Breast pump order received from [employer]. To RR to sign. Jennie Sosa RN documented in this encounter [facility] 05-03-2023 Miscellaneous Notes Formattin g of this note might be different from the original. Left a message that a [employer] message was sent. Patient to call the [...] a message would be sent to provider consumer safety officer tomorrow as DOC today is at the [facility]. Next OB visit is 05/09. Celia Saunders RN documented in this encounter [facility] 04-25-2023 Miscellaneous Notes Formattin g of this note might be different from the original. Anatomy ultrasound reviewed. No abnormalities identified. Follow up as clinically indicated. Please place copy in ob chart. Parvin Randle MD documented in this encounter [facility] 03-27-2023 Note HNO ID: [id number] Author: Marjorie Nolan LPN Service: ? Author [...] severely ill: Yes Patient denies history of Guillain-Story Syndrome (a severe paralytic illness): Yes Tdap Adacel injection was given without incident. See immunizations for details of immunizations administered today. VIS sheet provided: Yes Provider Justin Hoffmann was present in office at time of injection. Marjorie Nolan LPN [facility] 03-27-2023 Miscellaneous Notes Formattin g of this [...] Parvin Randle M.D. documented in this encounter [facility] 03-27-2023 History of Presen t illness Narrative Patient identified by name and date of . Rita Sal Elias presents today for a vaccination of Tdap. Patient denies an allergy to latex: yes Patient denies a severe (life-threatening) allergy to a previous dose of Tdap, DTP, DTaP, DT or Td vaccine. Yes Patient denies history of epilepsy or neurological problems: Yes Patient is afebrile and denies being moderately or severely ill: Yes Patient denies history of Guillain-Story Syndrome (a severe paralytic illness): Yes Tdap Adacel injection was given without incident. See immunizations for details of immunizations administered today. VIS sheet provided: Yes Provider Justin Hoffmann was present in office at time of injection. Marjorie Nolan LPN documented in this encounter [facility] 03-27-2023 Instructions Marjorie Nolan LPN - 03/27/2023 8:26 AM EDT SEQUENTIAL SCREENINGS The [facility] offers sequential screenings for women who are [...] It will require an appointment with our sanitation technician. This is not an ultrasound performed [...] the above symptoms, contact our office at [phone] and ask to speak with a nurse. After hours, you can call doctors registry at [phone] OR call [facility] at [phone] and ask to have the doctor consumer safety officer paged. If you consider this an emergency, dial 6-8-3 or go to your nearest emergency department. NEED HELP? Are you dealing with a violent or abusive relationship? Are you a victim of rape or sexual assult? Call [facility] ([place]) 24 hour Crisis Hotline: 773.286.8090 or 573-713-0967. MANUAL Your Guide to a Healthy manual is now on-line. Visit [email or web address] [email or web address] to download your free copy documented in this encounter [facility] 01-30-2023 Miscellaneous Notes Formattin g of this note might be different from the original. RR_ No VB/LOF. US today. Taking PNV and ASA. F/u in 4 weeks or prn. Parvin Randle MD documented in this encounter [facility] 01-30-2023 Instructions Alyssa Gallardo Ma - 01/30/2023 9:28 AM EDT SEQUENTIAL SCREENINGS The [facility] offers sequential screenings for women who are [...] It will require an appointment with our sanitation technician. This is not an ultrasound performed [...] the above symptoms, contact our office at [phone] and ask to speak with a nurse. After hours, you can call doctors registry at [phone] OR call [facility] at [phone] and ask to have the doctor consumer safety officer paged. If you consider this an emergency, dial 9-1-1 or go to your nearest emergency department. NEED HELP? Are you dealing with a violent or abusive relationship? Are you a victim of rape or sexual assult? Call [facility] ([place]) 24 hour Crisis Hotline: 493.973.4950 or 762-570-2918. MANUAL Your Guide to a Healthy manual is now on-line. Visit [email or web address] to download your free copy documented in this encounter [facility] 01-02-2023 Miscellaneous Notes Formattin g of this note might be different from the original. RR- Doing well overall. No VB/LOF. Still w/ occas nausea but better overall. F/u in 4 weeks for anatomy US and ob visit. Parvin Randle MD documented in this encounter [facility] 01-02-2023 Instructions Alyssa Gallardo Ma - 01/02/2023 11:14 AM EDT SEQUENTIAL SCREENINGS The [facility] offers sequential screenings for women who are [...] It will require an appointment with our sanitation technician. This is not an ultrasound performed [...] the above symptoms, contact our office at [phone] and ask to speak with a nurse. After hours, you can call doctors registry at [phone] OR call [facility] at [phone] and ask to have the doctor consumer safety officer paged. If you consider this an emergency, dial 9-1-1 or go to your nearest emergency department. NEED HELP? Are you dealing with a violent or abusive relationship? Are you a victim of rape or sexual assult? Call [facility] ([place]) 24 hour Crisis Hotline: 223.518.9756 or 836-084-8894. MANUAL Your Guide to a Healthy manual is now on-line. Visit [email or web address] to download your free copy documented in this encounter [facility] 12-05-2022 Note HNO ID: [id number] Author: Celia Saunders RN Service: ? Author Type: ? Type: Progress Notes Filed: 12/05/2022 9:41 AM Note Text: Patient here for First Trimester Screening. See ultrasound report for details. Options for genetic screening and diagnosis discussed with the patient. Patient opts for first trimester screening and the sequential screening protocol. Limitations of screening tests discussed with the patient. Jack Serrano MD [facility] 11-05-2022 Note HNO ID: [id number] Author: Juan Luis Denson MD Service: ? [...] use: No Multivitamin with Folic acid: Yes Scientology or heritage: No Would refuse blood transfusion [...] Status: Partner: Name: Alvaro Age: 32 Occupation: [place] Gender: Male History of STDs: None PAST MEDICAL HISTORY Diagnosis Date Gestational hypertension Placental abruption Pre-eclampsia in third trimester 01/03/2022 PAST SURGICAL HISTORY Procedure Laterality Date SNGL 12/05/2019 x2 HSG Bilateral [facility]- b/l tubes patent- Dr. granado PAST SURGICAL HISTORY OF sebaceous nevus on scalp TONSILLECTOMY AND ADENOIDECTOMY AGE 13/> Current Outpatient Medications Medication Sig Dispense Refill ondansetron (ZOFRAN) 4 mg tablet Take 1 tablet by mouth every 8 hours as needed. 30 tablet 0 MULTIVITAMINS 28 mg iron- 800 mcg tab TAKE 1 TABLET BY MOUTH EVERY DAY 100 tablet 1 vit 53-ctno-judvv-dha (PRENATE MINI, FERR ASP GLYCIN,) 18-1-350 mg [...] in no apparen (more content not included)... [facility] 11-01-2022 Note HNO ID: [id number] Author: Avril Rico RN Service: ? Author [...] None, Apgar5: None, Living: None, Comments: None [facility] documented as of this encounter (statuses as of 11/09/2022) [facility] History of Past illness Narrative* Problem Noted Date Diagnosed Date Resolved Date affected by intrau terine growth restriction (IUGR) 11/01/2022 11/01/2022 Dysmenorrhea 07/31/2011 06/30/2021 Knee pain 09/02/2009 07/31/2011 documented as of this encounter (statuses as of 12/05/2022) [facility]23 History of Past illness Narrative* Problem Noted Date Diagnosed Date Resolved Date affected by intrau terine growth restriction (IUGR) 11/01/2022 11/01/2022 Dysmenorrhea 07/31/2011 06/30/2021 Knee pain 09/02/2009 07/31/2011 documented as of this encounter (statuses as of 01/02/2023) [facility] History of Past illness Narrative* Problem Noted Date Diagnosed Date Resolved Date affected by intrau terine growth restriction (IUGR) 11/01/2022 11/01/2022 Dysmenorrhea 07/31/2011 06/30/2021 Knee pain 09/02/2009 07/31/2011 documented as of this encounter (statuses as of 01/30/2023) [facility] History of Past illness Narrative* Problem Noted Date Diagnosed Date Resolved Date affected by intrau terine growth restriction (IUGR) 11/01/2022 11/01/2022 Dysmenorrhea 07/31/2011 06/30/2021 Knee pain 09/02/2009 07/31/2011 documented as of this encounter (statuses as of 03/27/2023) [facility] History of Past illness Narrative* Problem Noted Date Diagnosed Date Resolved Date affected by intrau terine growth restriction (IUGR) 11/01/2022 11/01/2022 Dysmenorrhea 07/31/2011 06/30/2021 Knee pain 09/02/2009 07/31/2011 documented as of this encounter (statuses as of 04/25/2023) [facility] History of Past illness Narrative* Problem Noted Date Diagnosed Date Resolved Date affected by intrau terine growth restriction (IUGR) 11/01/2022 11/01/2022 Dysmenorrhea 07/31/2011 06/30/2021 Knee pain 09/02/2009 07/31/2011 documented as of this encounter (statuses as of 05/03/2023) [facility] History of Past illness Narrative* Problem Noted Date Diagnosed Date Resolved Date affected by intrau terine growth restriction (IUGR) 11/01/2022 11/01/2022 Dysmenorrhea 07/31/2011 06/30/2021 Knee pain 09/02/2009 07/31/2011 documented as of this encounter (statuses as of 05/06/2023) [facility] History of Past illness Narrative* Problem Noted Date Diagnosed Date Resolved Date affected by intrau terine growth restriction (IUGR) 11/01/2022 11/01/2022 Dysmenorrhea 07/31/2011 06/30/2021 Knee pain 09/02/2009 07/31/2011 documented as of this encounter (statuses as of 05/09/2023) [facility] History of Past illness Narrative* Problem Noted Date Diagnosed Date Resolved Date affected by intrau terine growth restriction (IUGR) 11/01/2022 11/01/2022 Dysmenorrhea 07/31/2011 06/30/2021 Knee pain 09/02/2009 07/31/2011 documented as of this encounter (statuses as of 05/15/2023) [facility] History of Present illness Narrative* Parvin Randle [...] N/A Parvin Randle MD documented in this encounterSt. Mary'[facility]08-[facility] Miscellaneous Notes* Telephone Encounter - Avril Rico RN - 01/15/2022 4:55 PM EDT Received PP support order from [facility]. I called patient-patient does not want it. documented in this encounterSt. Mary'[facility]08-19-20[facility] History of Present illness Narrative* Jennie Sosa RN - 01/12/2022 2:00 PM EDT Patient delivered via repeat by repeat on 01/12/22 at [facility]. See OB history. Jennie Sosa RN documented in this encounterSt. Mary'[facility]08-16-2022 Miscellaneous Notes* Quick Notes - Parvin Randle [...] PT. Parvin Randle M.D. documented in this encounterSt. Mary'S Medical Center08-16-2022 Instructions* Patient Instructions* Alyssa Gallardo Ma - 01/09/2022 11:38 AM EDT SEQUENTIAL SCREENINGS The [facility] offers sequential screenings for women who are [...] testing. It will require an appointment withour sanitation technician. This is not an ultrasound performed [...] the above symptoms, contact our office at [phone] and ask to speak with anurse. After hours, you can call doctors registry at [phone] OR call [facility] at [phone] ask to have the doctor consumer safety officer paged. If you consider this an emergency, dial 1-7-3 or go to your nearest emergency department. NEED HELP? Are you dealing with a violent or abusive relationship? Are you a victim of rape or sexual assult? Call [facility] ([place]) 24 hour Crisis Hotline: 940.879.8225 or 115-620-8943. MANUAL Your Guide to a Healthy manual is now on-line. Visit [email or web address] to download your free copy documented in this encounterSt. Mary'S Medical Center08-16-2022 History and physical note * Parvin Randle [...] 1 tablet by mouth once daily. vit [id number] (PRENATE MINI, FERR ASP GLYCIN,) 18-1-350 mg [...] allergies Parvin Randle M.D. documented in this encounterSt. Mary'S Medical Center08-12-2022 History of Present illness Narrative* Juan Luis Denson MD - 01/05/2022 11:29 AM EDT NST SUMMARY PROVIDER ASSESSMENT AND INTERPRETATION Indications for NST: Pre-eclampsia Baseline: 150 Variability: Moderate Accelerations: Present 15 X 15 Decelerations: None Interpretation: Reactive SIGNATURE: Juan Luis Denson DO documented in this encounterSt. Mary'S [facility] Center08-12-2022 Miscellaneous Notes* Quick Notes - Juan Luis [...] Juan Luis Denson DO documented in this encounterSt. Mary'S Medical Center08-12-2022 Instructions* Patient Instructions* Jacquie Ling MA - 01/05/2022 9:42 AM EDT SEQUENTIAL SCREENINGS The [facility] offers sequential screenings for women who are [...] testing. It will require an appointment withour sanitation technician. This is not an ultrasound performed [...] the above symptoms, contact our office at [phone] and ask to speak with anurse. After hours, you can call doctors registry at [phone] OR call [facility] at [phone] ask to have the doctor consumer safety officer paged. If you consider this an emergency, dial 9--1 or go to your nearest emergency department. NEED HELP? Are you dealing with a violent or abusive relationship? Are you a victim of rape or sexual assult? Call [facility] ([place]) 24 hour Crisis Hotline: 366.763.7261 or 749-895-5877. MANUAL Your Guide to a Healthy manual is now on-line. Visit [email or web address] to download your free copy documented in this encounterSt. Mary'S [facility] Center08-10-2022 Miscellaneous Notes* Telephone Encounter - Avril Rico RN - 01/03/2022 4:30 PM EDT Discussed with patient all upcoming appt and the C Section date/time * Telephone Encounter - Avril Rico RN - 01/03/2022 10:43 AM EDT I did call Soumya at [facility] and January 12 is available. I tried [...] you. Celia Saunders RN documented in this encounterSt. Mary'S [facility] Center08-10-2022 Miscellaneous Notes* Quick Notes - Jack Granado [...] 01/01 Jack Serrano MD documented in this encounterSt. Mary'S Medical Center08-10-2022 Instructions* Patient Instructions* Leola Crandall Ma - 01/03/2022 2:53 PM EDT SEQUENTIAL SCREENINGS The [facility] offers sequential screenings for women who are [...] testing. It will require an appointment withour sanitation technician. This is not an ultrasound performed [...] the above symptoms, contact our office at [phone] and ask to speak with anurse. After hours, you can call doctors registry at [phone] OR call [facility] at [phone] ask to have the doctor consumer safety officer paged. If you consider this an emergency, dial 9-1-2 or go to your nearest emergency department. NEED HELP? Are you dealing with a violent or abusive relationship? Are you a victim of rape or sexual assult? Call [facility] ([place]) 24 hour Crisis Hotline: 861.319.1592 or 607-529-8736. MANUAL Your Guide to a Healthy manual is now on-line. Visit [email or web address] to download your free copy documented in this encounterSt. Mary'S Medical Center08-09-2022 Miscellaneous Notes* Telephone Encounter - Parvin Randle [...] SOB. Celia Saunders RN documented in this encounterSt. Mary'S Medical Center07-29-2022 Miscellaneous Notes* Quick Notes - Parvin Randle MD - 12/22/2021 8:53 AM EDT RR_ No VB/LOF. Good FM. Mild edema. Taking ASA and pNV> BP stable. Plans repeat c/s. F/u in 2 weeks then week. Parvin Randle MD documented in this encounterSt. Mary'S Medical Center07-29-2022 Instructions* Patient Instructions* Alyssa Gallardo Ma - 12/22/2021 8:30 AM EDT SEQUENTIAL SCREENINGS The [facility] offers sequential screenings for women who are [...] testing. It will require an appointment withour sanitation technician. This is not an ultrasound performed [...] the above symptoms, contact our office at [phone] and ask to speak with anurse. After hours, you can call doctors registry at [phone] OR call [facility] at [phone] ask to have the doctor consumer safety officer paged. If you consider this an emergency, dial 9--4 or go to your nearest emergency department. NEED HELP? Are you dealing with a violent or abusive relationship? Are you a victim of rape or sexual assult? Call [facility] ([place]) 24 hour Crisis Hotline: 233.801.8210 or 739-284-9086. MANUAL Your Guide to a Healthy manual is now on-line. Visit [email or web address] to download your free copy documented in this encounterSt. Mary'S Medical Center07-15-2022 Miscellaneous Notes* Quick Notes - Jack Granado MD - 12/08/2021 11:03 AM EDT DM- Pt doing well today. Denies Vaginal Bleeding, Leaking fluid, or contractions. Pt reports good movement. Kick counts reviewed. RTO 2 wks. Continue ASA. Reviewed s/sx PRE E. Jack Serrano MD documented in this encounterSt. Mary'S Medical Center07-15-2022 Instructions* Patient Instructions* Alyssa Gallardo Ma - 12/08/2021 10:08 AM EDT SEQUENTIAL SCREENINGS The [facility] offers sequential screenings for women who are [...] testing. It will require an appointment withour sanitation technician. This is not an ultrasound performed [...] the above symptoms, contact our office at [phone] and ask to speak with anurse. After hours, you can call doctors registry at [phone] OR call [facility] at [phone] ask to have the doctor consumer safety officer paged. If you consider this an emergency, dial 9-1-4 or go to your nearest emergency department. NEED HELP? Are you dealing with a violent or abusive relationship? Are you a victim of rape or sexual assult? Call [facility] ([place]) 24 hour Crisis Hotline: 829.444.1711 or 720-913-6530. MANUAL Your Guide to a Healthy manual is now on-line. Visit [email or web address] to download your free copy documented in this encounterSt. Mary'S Medical Center06-30-2022 Miscellaneous Notes* Quick Notes - Jack Granado MD - 11/23/2021 9:52 AM EDT DM- Pt doing well today. Denies Vaginal Bleeding, Leaking fluid, or contractions. Pt reports good movement. 28 week labs reviewed. RTO 2 wks. Continue ASA. CS scheduled if no spontaneous labor prior. Kick counts reviewed. Jack Serrano MD documented in this encounterSt. Mary'S Medical Center06-30-2022 Instructions* Patient Instructions* Alyssa Gallardo Ma - 11/23/2021 9:42 AM EDT SEQUENTIAL SCREENINGS The [facility] offers sequential screenings for women who are [...] testing. It will require an appointment withour sanitation technician. This is not an ultrasound performed [...] the above symptoms, contact our office at [phone] and ask to speak with anurse. After hours, you can call doctors registry at [phone] OR call [facility] at [phone] ask to have the doctor consumer safety officer paged. If you consider this an emergency, dial 9-1- or go to your nearest emergency department. NEED HELP? Are you dealing with a violent or abusive relationship? Are you a victim of rape or sexual assult? Call [facility] ([facility] 24 hour Crisis Hotline: 833.880.6992 or 790-057-5953. MANUAL Your Guide to a Healthy manual is now on-line. Visit [email or web address] to download your free copy documented in this encounterSt. Mary'S Medical Center06-17-2022 Instructions* Patient Instructions* Alyssa Paulina York - 11/10/2021 11:35 AM EDT SEQUENTIAL SCREENINGS The [facility] offers sequential screenings for women who are [...] testing. It will require an appointment withour sanitation technician. This is not an ultrasound performed [...] the above symptoms, contact our office at [phone] and ask to speak with anurse. After hours, you can call doctors registry at [phone] OR call [facility] at [phone] ask to have the doctor consumer safety officer paged. If you consider this an emergency, dial 9-1-0 or go to your nearest emergency department. NEED HELP? Are you dealing with a violent or abusive relationship? Are you a victim of rape or sexual assult? Call [facility] ([place]) 24 hour Crisis Hotline: 333.927.7752 or 820-246-8339. MANUAL Your Guide to a Healthy manual is now on-line. Visit [email or web address] to download your free copy documented in this encounterSt. Mary'S Medical Center06-17-2022 Miscellaneous Notes* Quick Notes - Parvin Randle MD - 11/10/2021 11:18 AM EDT RR- No VB/LOF. Good FM. NO regular ctxs. No edema. 28 week labs. tdap today. F/u in 2 weeks or prn.Parvin Randle MD documented in this encounterSt. Mary'S Medical Center05-20-2022 Miscellaneous Notes* Quick Notes - Jack Granado [...] wks. Jack Serrano MD documented in this encounterSt. Mary'S Medical Center05-20-2022 Instructions* Patient Instructions* Leola Crandall Ma - 10/13/2021 10:48 AM EDT SEQUENTIAL SCREENINGS The [facility] offers sequential screenings for women who are [...] testing. It will require an appointment withour sanitation technician. This is not an ultrasound performed [...] the above symptoms, contact our office at [phone] and ask to speak with anurse. After hours, you can call doctors registry at [phone] OR call [facility] at [phone] ask to have the doctor consumer safety officer paged. If you consider this an emergency, dial 9-1-4 or go to your nearest emergency department. NEED HELP? Are you dealing with a violent or abusive relationship? Are you a victim of rape or sexual assult? Call [facility] ([place]) 24 hour Crisis Hotline: 253.463.8837 or 763-762-0320. MANUAL Your Guide to a Healthy manual is now on-line. Visit [email or web address] to download your free copy documented in this encounterSt. Mary'S Medical Center04-25-2022 Miscellaneous Notes* Quick Notes - Parvin Randle MD - 09/18/2021 2:49 PM EDT RR- Some flutters. US today. Taking ASA. Nausea resolved. F/u 4 weeks or prn. Parvin Randle MD documented in this encounterSt. Mary'S Medical Center04-25-2022 Instructions* Patient Instructions* Alyssa Gallardo Ma - 09/18/2021 2:04 PM EDT SEQUENTIAL SCREENINGS The [facility] offers sequential screenings for women who are [...] testing. It will require an appointment withour sanitation technician. This is not an ultrasound performed [...] the above symptoms, contact our office at [phone] and ask to speak with anurse. After hours, you can call doctors registry at [phone] OR call [facility] at [phone] ask to have the doctor consumer safety officer paged. If you consider this an emergency, dial 7-8-8 or go to your nearest emergency department. NEED HELP? Are you dealing with a violent or abusive relationship? Are you a victim of rape or sexual assult? Call [facility] ([place]) 24 hour Crisis Hotline: 815.513.1253 or 553-266-9603. MANUAL Your Guide to a Healthy manual is now on-line. Visit [email or web address] to download your free copy documented in this encounterSt. Mary'S Medical Center03-28-2022 Miscellaneous Notes* Quick Notes - Parvin Randle MD - 08/21/2021 4:32 PM EDT RR- No VB/LOF. Some flutters. Plan US in 4 weeks. Second part of sequential screen today. Parvin Randle MD documented in this encounterSt. Mary'S Medical Center03-28-2022 Instructions* Patient Instructions* Alyssa Gallardo Ma - 08/21/2021 4:15 PM EDT SEQUENTIAL SCREENINGS The [facility] offers sequential screenings for women who are [...] testing. It will require an appointment withour sanitation technician. This is not an ultrasound performed [...] the above symptoms, contact our office at [phone] and ask to speak with anurse. After hours, you can call doctors registry at [phone] OR call [facility] at [phone] ask to have the doctor consumer safety officer paged. If you consider this an emergency, dial 6-6-4 or go to your nearest emergency department. NEED HELP? Are you dealing with a violent or abusive relationship? Are you a victim of rape or sexual assult? Call [facility] ([place]) 24 hour Crisis Hotline: 592.316.6922 or 838-838-5034. MANUAL Your Guide to a Healthy manual is now on-line. Visit [email or web address] to download your free copy documented in this encounterSt. Mary'S Medical Center03-06-2012 History of Past illness Narrative* Problem Noted Date Resolved Date Dysmenorrhea 07/31/2011 06/30/2021 Knee pain 09/02/2009 07/31/2011 documented as of this encounter (statuses as of 08/21/2021) [facility] of [facility] illness Narrative* Problem Noted Date Resolved Date Dysmenorrhea 07/31/2011 06/30/2021 Knee pain 09/02/2009 07/31/2011 documented as of this encounter (statuses as of 09/18/2021) [facility] of [facility] illness Narrative* Problem Noted Date Resolved Date Dysmenorrhea 07/31/2011 06/30/2021 Knee pain 09/02/2009 07/31/2011 documented as of this encounter (statuses as of 09/18/2021) [facility] of [facility] illness Narrative* Problem Noted Date Resolved Date Dysmenorrhea 07/31/2011 06/30/2021 Knee pain 09/02/2009 07/31/2011 documented as of this encounter (statuses as of 10/13/2021) [facility] of [facility] illness Narrative* Problem Noted Date Resolved Date Dysmenorrhea 07/31/2011 06/30/2021 Knee pain 09/02/2009 07/31/2011 documented as of this encounter (statuses as of 11/10/2021) [facility] Narrative* Problem Noted Date Resolved Date Dysmenorrhea 07/31/2011 06/30/2021 Knee pain 09/02/2009 07/31/2011 documented as of this encounter (statuses as of 11/23/2021) [facility] Narrative* Problem Noted Date Resolved Date Dysmenorrhea 07/31/2011 06/30/2021 Knee pain 09/02/2009 07/31/2011 documented as of this encounter (statuses as of 12/08/2021) [facility] illness Narrative* Problem Noted Date Resolved Date Dysmenorrhea 07/31/2011 06/30/2021 Knee pain 09/02/2009 07/31/2011 documented as of this encounter (statuses as of 12/22/2021) [facility] Narrative* Problem Noted Date Resolved Date Dysmenorrhea 07/31/2011 06/30/2021 Knee pain 09/02/2009 07/31/2011 documented as of this encounter (statuses as of 01/02/2022) [facility] Narrative* Problem Noted Date Resolved Date Dysmenorrhea 07/31/2011 06/30/2021 Knee pain 09/02/2009 07/31/2011 documented as of this encounter (statuses as of 01/03/2022) [facility] Narrative* Problem Noted Date Resolved Date Dysmenorrhea 07/31/2011 06/30/2021 Knee pain 09/02/2009 07/31/2011 documented as of this encounter (statuses as of 01/03/2022) [facility] Narrative* Problem Noted Date Resolved Date Dysmenorrhea 07/31/2011 06/30/2021 Knee pain 09/02/2009 07/31/2011 documented as of this encounter (statuses as of 01/04/2022) [facility] Narrative* Problem Noted Date Resolved Date Dysmenorrhea 07/31/2011 06/30/2021 Knee pain 09/02/2009 07/31/2011 documented as of this encounter (statuses as of 01/05/2022) [facility] Narrative* Problem Noted Date Resolved Date Dysmenorrhea 07/31/2011 06/30/2021 Knee pain 09/02/2009 07/31/2011 documented as of this encounter (statuses as of 01/05/2022) [facility] Narrative* Problem Noted Date Resolved Date Dysmenorrhea 07/31/2011 06/30/2021 Knee pain 09/02/2009 07/31/2011 documented as of this encounter (statuses as of 01/09/2022) [facility] Narrative* Problem Noted Date Resolved Date Dysmenorrhea 07/31/2011 06/30/2021 Knee pain 09/02/2009 07/31/2011 documented as of this encounter (statuses as of 01/12/2022) [facility] Narrative* Problem Noted Date Resolved Date Dysmenorrhea 07/31/2011 06/30/2021 Knee pain 09/02/2009 07/31/2011 documented as of this encounter (statuses as of 01/15/2022) [facility] Narrative* Problem Noted Date Resolved Date Dysmenorrhea 07/31/2011 06/30/2021 Knee pain 09/02/2009 07/31/2011 documented as of this encounter (statuses as of 01/30/2022) [facility] note* Diagnosis 16 weeks gestation of - Primary state, incidental with history of section, antepartum Encounter for supervision of other normal in second trimester [facility] Diagnosis 20 weeks gestation of - Primary state, incidental with history of section, antepartum High-risk in second trimester [facility]* Diagnosis Encounter for anatomic survey- Primary 20 weeks gestation of state, incidental [facility]* Diagnosis with history of section, antepartum- Primary 24 weeks gestation of state, incidental [facility]* Diagnosis Need for Tdap vaccination- Primary Need for prophylactic vaccination with combined [id number] (DTP) vaccine Encounter for supervision of other normal in third trimester 28 weeks gestation of state, incidental [facility]* Diagnosis Encounter for supervision of other normal in third trimester- Primary History of gestational hypertension with history of section, antepartum 29 weeks gestation of state, incidental [facility]* Diagnosis Encounter for supervision of other normal in third trimester- Primary 32 weeks gestation of state, incidental [facility]* Diagnosis 34 weeks gestation of - Primary state, incidental Encounter for supervision of other normal in third trimester History of gestational hypertension [facility]* Diagnosis Pre-eclampsia in third trimester- Primary Mild or unspecified pre-eclampsia, antepartum with history of section, antepartum 35 weeks gestation of state, incidental [facility] this [facility]* Diagnosis Pre-eclampsia in third trimester- Primary Mild or unspecified pre-eclampsia, antepartum [facility]* Diagnosis 36 weeks gestation of - Primary state, incidental Pre-eclampsia in third trimester Mild or unspecified pre-eclampsia, antepartum Supervision of high risk in third trimester Unspecified high-risk documented in [facility] Diagnosis History of gestational hypertension- Primary Pre-eclampsia in third trimester Mild or unspecified pre-eclampsia, antepartum 36 weeks gestation of state, incidental Lactating mother care and examination of lactating mother documented in this [facility]* Diagnosis 36 weeks gestation of - Primary state, incidental Pre-eclampsia in third trimester Mild or unspecified pre-eclampsia, antepartum Supervision of high risk in third trimester Unspecified high-risk [facility] Diagnosis exam- Primary Routine follow-up documented in this [facility]* Diagnosis care in first trimester- Primary [facility] Diagnosis Encounter for (NT) nuchal translucency scan- Primary Other specified screening H/O pre-eclampsia in prior , currently with other poor obstetric history with history of section, antepartum 11 weeks gestation of state, incidental documented in this encounter [facility] note* Diagnosis with history of section, antepartum- Primary Supervision of high risk in second trimester Unspecified high-risk documented [facility]* Diagnosis 19 weeks gestation of - Primary state, incidental with history of section, antepartum Supervision of high risk in second trimester Unspecified high-risk H/O pre-eclampsia in prior , currently with other poor obstetric history documented [facility] this [facility]* Diagnosis 27 weeks gestation of - Primary state, incidental Need for vaccination Need for prophylactic vaccination and inoculation against unspecified single disease Supervision of other high risk pregnancies, third trimester documented [facility]* Diagnosis Encounter for ultrasound to check growth- Primary Encounter for routine screening for malformation using ultrasonics Supervision of other high risk pregnancies, third trimester 32 weeks gestation of state, incidental documented [facility] this [facility]* Diagnosis with history of section, antepartum- Primary 34 weeks gestation of state, incidental documented [facility]* Diagnosis with uncertain dates in first trimester documented in this encounter [facility] for referral (narrative)* Outpatient Procedure (Routine) - Pending Review Specialty Diagnoses / Procedures Referred By Yordy monroe Referred To Contact [facility] Diagnoses 35 weeks gestation of Pre-eclampsia in third trimester Procedures NON-STRESS TEST NON-STRESS TEST Neyhart Granado, Jack, MD [address] [place] [address] [facility] [address] [place] [address] Referral ID Status Reason Start Date Expiration Date Visits Requested Visits Authorized [id number] Pending Review Auto-Generat ed Referral 01/03/2022 01/03/2023 1 1 [facility] for referral (narrative)* Diagnostic Procedure Only (Routine) - Authorized Specialty Diagnoses / Procedures Referred By Contac t Referred To Contact [facility] Diagnoses Pre-eclampsia in third trimester Procedures OBSTETRIC ULTRASOUND WHI US PREG UTERUS AFTER 1ST TRIMEST GESTATION Parvin Randle MD [address] [place] [address] [facility] [address] [place] [address] Referral ID Status Reason Start Date Expiration Date Visits Requested Visits Authorized [id number] Authorized Auto-Generat ed Referral 01/03/2022 01/03/2023 1 1 [facility] for referral (narrative)* Diagnostic Procedure Only (Routine) - Pending Review Specialty Diagnoses / Procedures Referred By Contac t Referred To Contact [facility] Diagnoses 27 weeks gestation of Need for vaccination Supervision of other high risk pregnancies, third trimester Procedures OBSTETRIC ULTRASOUND WHI US PREG UTERUS AFTER 1ST TRIMEST GESTATION Parvin Randle MD [address] [place] [address] [address] Referral ID Status Reason Start Date Expiration Date Visits Requested Visits Authorized [id number] Pending Review Auto-Generat ed Referral 03/27/2023 03/26/[address] 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 the event this information is protected by the Federal Confidentiality of Alcohol and Drug Abuse Patient Records regulations: The Federal rules restrict any use of the information to criminally investigate or prosecute any alcohol or drug abuse patient.[facility] the event this information is protected by the Federal Confidentiality of Alcohol and Drug Abuse Patient Records regulations: The Federal rules restrict any use of the information to criminally investigate or prosecute any alcohol or drug abuse patient.[facility] the event this information is protected by the Federal Confidentiality of Alcohol and Drug Abuse Patient Records regulations: The Federal rules restrict any use of the information to criminally investigate or prosecute any alcohol or drug abuse patient.[facility] the event this information is protected by the Federal Confidentiality of Alcohol and Drug Abuse Patient Records regulations: The Federal rules restrict any use of the information to criminally investigate or prosecute any alcohol or drug abuse patient.[facility] the event this information is protected by the Federal Confidentiality of Alcohol and Drug Abuse Patient Records regulations: The Federal rules restrict any use of the information to criminally investigate or prosecute any alcohol or drug abuse patient.[facility] the event this information is protected by the Federal Confidentiality of Alcohol and Drug Abuse Patient Records regulations: The Federal rules restrict any use of the information to criminally investigate or prosecute any alcohol or drug abuse patient.[facility] the event this information is protected by the Federal Confidentiality of Alcohol and Drug Abuse Patient Records regulations: The Federal rules restrict any use of the information to criminally investigate or prosecute any alcohol or drug abuse patient.[facility] the event this information is protected by the Federal Confidentiality of Alcohol and Drug Abuse Patient Records regulations: The Federal rules restrict any use of the information to criminally investigate or prosecute any alcohol or drug abuse patient.[facility] the event this information is protected by the Federal Confidentiality of Alcohol and Drug Abuse Patient Records regulations: The Federal rules restrict any use of the information to criminally investigate or prosecute any alcohol or drug abuse patient.[facility] the event this information is protected by the Federal Confidentiality of Alcohol and Drug Abuse Patient Records regulations: The Federal rules restrict any use of the information to criminally investigate or prosecute any alcohol or drug abuse patient.[facility] the event this information is protected by the Federal Confidentiality of Alcohol and Drug Abuse Patient Records regulations: The Federal rules restrict any use of the information to criminally investigate or prosecute any alcohol or drug abuse patient.[facility] the event this information is protected by the Federal Confidentiality of Alcohol and Drug Abuse Patient Records regulations: The Federal rules restrict any use of the information to criminally investigate or prosecute any alcohol or drug abuse patient.[facility] Center[facility] the event this information is protected by the Federal Confidentiality of Alcohol and Drug Abuse Patient Records regulations: The Federal rules restrict any use of the information to criminally investigate or prosecute any alcohol or drug abuse patient.[facility] Center[facility] the event this information is protected by the Federal Confidentiality of Alcohol and Drug Abuse Patient Records regulations: The Federal rules restrict any use of the information to criminally investigate or prosecute any alcohol or drug abuse patient.[facility] Center[facility] the event this information is protected by the Federal Confidentiality of Alcohol and Drug Abuse Patient Records regulations: The Federal rules restrict any use of the information to criminally investigate or prosecute any alcohol or drug abuse patient.[facility] the event this information is protected by the Federal Confidentiality of Alcohol and Drug Abuse Patient Records regulations: The Federal rules restrict any use of the information to criminally investigate or prosecute any alcohol or drug abuse patient.[facility] the event this information is protected by the Federal Confidentiality of Alcohol and Drug Abuse Patient Records regulations: The Federal rules restrict any use of the information to criminally investigate or prosecute any alcohol or drug abuse patient.[facility] the event this information is protected by the Federal Confidentiality of Alcohol and Drug Abuse Patient Records regulations: The Federal rules restrict any use of the information to criminally investigate or prosecute any alcohol or drug abuse patient.[facility] the event this information is protected by the Federal Confidentiality of Alcohol and Drug Abuse Patient Records regulations: The Federal rules restrict any use of the information to criminally investigate or prosecute any alcohol or drug abuse patient.[facility] CenterIn the event this information is protected by [...] or prosecute any alcohol or drug abuse patient.[facility] Center[facility] the event this information is protected by the Federal Confidentiality of Alcohol and Drug Abuse Patient Records regulations: The Federal rules restrict any use of the information to criminally investigate or prosecute any alcohol or drug abuse patient.[facility] the event this information is protected by the Federal Confidentiality of Alcohol and Drug Abuse Patient Records regulations: The Federal rules restrict any use of the information to criminally investigate or prosecute any alcohol or drug abuse patient.[facility] Center[facility] the event this information is protected by the Federal Confidentiality of Alcohol and Drug Abuse Patient Records regulations: The Federal rules restrict any use of the information to criminally investigate or prosecute any alcohol or drug abuse patient.[facility] CenterIn the event this information is protected by the Federal Confidentiality of Alcohol and Drug Abuse Patient Records regulations: The Federal rules restrict any use of the information to criminally investigate or prosecute any alcohol or drug abuse patient.[facility] CenterIn the event this information is protected by the Federal Confidentiality of Alcohol and Drug Abuse Patient Records regulations: The Federal rules restrict any use of the information to criminally investigate or prosecute any alcohol or drug abuse patient.[facility] CenterIn the event this information is protected by the Federal Confidentiality of Alcohol and Drug Abuse Patient Records regulations: The Federal rules restrict any use of the information to criminally investigate or prosecute any alcohol or drug abuse patient.[facility] Reason for Visit (unrecogniz ed section and content) Reason Onset Date Comments Care 09/18/2021 Reason Comments US Specialty Diagnoses / Procedures Referred By Contac t Referred To Contact [facility] Diagnoses with history of section, antepartum Encounter for screening of mother Procedures OBSTETRIC ULTRASOUND WHI US PREG UTERUS AFTER 1ST TRIMEST GESTATION Parvin Randle MD [address] [place] [address] [address] Referral ID Status Reason Start Date Expiration Date V isits Requested Visits Authorized [id number] Closed Auto-Generate d Referral 07/24/2021 07/24/2022 1 [...] By Contac t Referred To Contact [facility] Diagnoses with uncertain dates in first trimester affected by intrauterine growth restriction (IUGR) H/O pre-eclampsia in prior , currently with history of section, antepartum Procedures NUCHAL TRANSLUCENCY WHI US NUCHAL TRANSLUCENCY 1ST GESTATION Juan Luis Denson MD [address] [place] [address] [address] Referral ID Status Reason Start Date Expiration Date V isits Requested Visits Authorized [id number] Closed Auto-Generate d Referral 11/05/2022 11/05/2023 1 1 Reason Onset Date Comments Care 01/02/2023 Reason Onset Date Comments Care 01/30/2023 Reason Onset Date Comments Care 03/27/2023 Specialty Diagnoses / Procedures Referred By Contac t Referred To Contact [facility] Diagnoses 27 weeks gestation of Need for vaccination Supervision of other high risk pregnancies, third trimester Procedures OBSTETRIC ULTRASOUND WHI US PREG UTERUS AFTER 1ST TRIMEST GESTATION Parvin Randle MD [address] [place] [address] [facility] [address] [place] [address] Referral ID Status Reason Start Date Expiration Date Visits Requested Visits Authorized [id number] Authorized Auto-Generat ed Referral 3 05/26/2023 20 20 Reason Comments OB elevated BP Reason Comments Breast Pump Reason Onset Date Comments Care 05/09/2023 Reason Comments Refill Request Care Teams (unrecognized sec tion and content) Cranberry Grower Relationship Specialty Start Date End Date Aria Yap MD PCP - General 08/02/06 Cranberry Grower Relationship Specialty Start Date End Date Aria Yap MD PCP - General 08/02/06 Cranberry Grower Relationship Specialty Start Date End Date Aria Yap MD PCP - General 08/02/06 Cranberry Grower Relationship Specialty Start Date End Date Aria Yap MD PCP - General 08/02/06 Cranberry Grower Relationship Specialty Start Date End Date Aria Yap MD PCP - General 08/02/06 Cranberry Grower Relationship Specialty Start Date End Date Aria Yap MD PCP - General 08/02/06 Cranberry Grower Relationship Specialty Start Date End Date Aria Yap MD PCP - General 08/02/06 Cranberry Grower Relationship Specialty Start Date End Date Aria Yap MD PCP - General 08/02/06 Cranberry Grower Relationship Specialty Start Date End Date Aria Yap MD PCP - General 08/02/06 Cranberry Grower Relationship Specialty Start Date End Date Aria Yap MD PCP - General 08/02/06 Cranberry Grower Relationship Specialty Start Date End Date Aria Yap MD PCP - General 08/02/06 Cranberry Grower Relationship Specialty Start Date End Date Aria Yap MD PCP - General 08/02/06 Cranberry Grower Relationship Specialty Start Date End Date Aria Yap MD PCP - General 08/02/06 Cranberry Grower Relationship Specialty Start Date End Date Aria Yap MD PCP - General 08/02/06 Cranberry Grower Relationship Specialty Start Date End Date Aria Yap MD PCP - General 08/02/06 Cranberry Grower Relationship Specialty Start Date End Date Aria Yap MD PCP - General 08/02/06 Cranberry Grower Relationship Specialty Start Date End Date Aria Yap MD PCP - General 08/02/06 Cranberry Grower Relationship Specialty Start Date End Date Aria Yap MD PCP - General 08/02/06 Cranberry Grower Relationship Specialty Start Date End Date Aria Yap MD PCP - General 08/02/06 INFORMATION SOURCE (unrecogn ized section [...] BE BASED ON THE PRIMARY CLINICAL RECORDS. [facility]. provides no warranty or guarantee of the accuracy or completeness of information in this document.
[2023-06-13 10:19] LABS: Absolute Lymphocyte Count 1.47 X10^3/uL (0.83-4.51); Absolute Neutrophil Count 6.6 X10^3/uL (2.0-7.7); Basophil# 0.01 X10^3/uL; Basophil% 0.1 % (0-1); Eosinophil# 0.03 X10^3/uL; Eosinophils% 0.3 % (0-5); Hematocrit 33.3 % (37-47); Hemoglobin 11.5 g/dL (12.0-15.0); Lymphocyte # 1.47 X10^3/ul (0.83-4.51); Mean Corp Hgb Conc 34.5 g/dL (32-36); Mean Corpuscular Hgb 30.5 pg (27.0-32.0); Mean Corpuscular Volume 88.3 fL (81-99); Mean Platelet Vol. 9.5 fl (6.2-12.0); Monocyte# 0.42 X10^3/uL; Monocyte% 4.9 % (0-10); NRBC Flagged by Analyzer 0 % (0-5); Neutrophil # 6.61 X10^3/uL (2.7-7.7); Neutrophil % 76.4 % (47-70); Platelet Count 208 K/mm3 (150-450); RBC Distribution Width CV 14.5 % (11.6-14.6); RBC Distribution Width SD 46.1 fl (35.1-43.9); Red Blood Count 3.77 M/mm3 (4.2-5.4); White Blood Count 8.7 K/mm3 (4.4-11.0)
[2023-06-13 10:52] LABS: Syphilis Antibodies Non-reactive
[2023-06-13] MEDS: Lactated Ringers 1,000 ML 150 ML IV (11:08)
[2023-06-13] MEDS: Sodium Citrate/Citric Acid 30 ML UDC PO (11:11)
[2023-06-13] MEDS: Cefazolin 2 GM in 0.9% Normal Saline (100mL Bag) 100 ML IV (11:17)
--- NOTE | 2023-06-13 12:18 | FALS_PTH ---
PATHOLOGY RESULTS PATIENT: RITA DELGADO LOC: WP U#:[id number] AGE/SX: 33/F ROOM: WP004 RE06/13/[address]: Dr. Danii Anderson MD : 1990 BED: 1 DIS: 06/15/2023 SPEC #: [id number] RECD: 06/13/23 13:21 STATUS: JULIA AMISH #: [id number] JULIANE: 06/13/23 12:[address]: Danii Anderson DEPT: SURGICAL PATHOLOGY RECD BY: Shelley Winter ENTERED: 06/14/23 10:05 SP TYPE: FALL TUBES OTHR DR: No Primary Care Phys Tissues: Fallopian tube Procedures: Surgery Specimen Level II Surgery Specimen Level IV HEADER OPERATION: Tubal ligation PRE-OP DIAGNOSIS: Sterilization TISSUE SUBMITTED: Fallopian tubes, tie on left MICROSCOPIC DIAGNOSIS Right fallopian tube, salpingectomy: Complete cross-sections of fallopian tube. Benign paratubal cyst. Left fallopian tube, salpingectomy: Complete cross-sections of fallopian tube with no pathologic change. AM:jami 06/17/2023 MICROSCOPIC DESCRIPTION Slides are reviewed. GROSS DESCRIPTION Received in fixative is one container labeled with the patient's name and designated bilateral fallopian tubes, stitch left. The specimen consists of bilateral fallopian tubes including fimbrial ends. The right fallopian tube measures 6.5 cm in length and 1.0 cm in diameter and left fallopian tube measures 6.5 cm in length and 1.0 cm in diameter. Sections reveal unremarkable cut surfaces. Worker'S Compensation Claims Examiner sections are submitted in two cassettes as follows: 1 - right fallopian tube, 2 - left fallopian tube. / SJ:jami 06/14/2023 TC:5 CPT: 67182, 36021
--- NOTE | 2023-06-13 12:21 | OP.PCM_ITS ---
Assessment & Plan (1) 39 weeks gestation of : (2) Previous delivery affecting : (3) Sterilization: (4) Pre-eclampsia in third trimester: Maternal Data Information Final HASEEB: 06/20/23 Gestational age: 39 0/7 Details Operative Information Date of Procedure: 06/13/23 Pre-Operative Diagnosis: previous c/s Post-Operative Diagnosis: same Indications for : Repeat Elective and Desires elective sterilization Classification: Scheduled Procedure Type: low transverse (with bilateral salpingectomy) environmental engineer scientist #1: Chip Shelton environmental engineer scientist #2: Gerardo [id number] Type of Anesthesia: Spinal Anesthesiologist: Dale Davey Special Medications: duramorph Antibiotic Given: Ancef 2 grams IV x1 Drain: Salazar to straight drain Estimated Blood Loss: 700 Fluids Replaced: 900 Procedure Start Time: 11:39 Procedure Stop Time: 12:21 Time of Delivery: 11:44 Findings Description of Procedure: The patient was taken to the operating room. She was prepped and draped in the dorsal supine position with a leftward tilt. A Pfannenstiel skin incision was made approximately 2 cm above the symphysis pubis and carried through to underlying layer fascia with the scalpel. The fascia was incised incised in the midline and extended laterally with the Neumann scissors. The fascia was dissected off the rectus muscles with blunt and sharp dissection. The rectus muscles were in the midline and the peritoneum was entered bluntly. The peritoneal incision was stretched and the bladder blade was placed. The uterine incision was made in a low transverse fashion with the scalpel and extended superiorly and inferiorly with blunt dissection. The amniotic membranes were ruptured bluntly and clear amniotic fluid returned. The infant's head was brought to the incision in the flexed position but was unable to be delivered. I attempted to stretch the subcutaneous tissue and the incision but there was very minimal laxity or stretch. I could not maintain the proper angle to deliver the head easily so the vacuum was placed on the flexion point and the vacuum created 550 mmHg. I pulled with 1 pull with fundal pressure and no pop offs. The head delivered and the vacuum was removed. The remainder of the infant was delivered with gentle traction and fundal pressure in the standard fashion. The mouth and nares were bulb suctioned. The cord was clamped and cut as the was stimulated. The infant was handed off to the waiting nursing staff. The placenta was delivered with fundal massage and gentle traction in the standard fashion. The uterus was exteriorized and cleared of all clots and debris. The cervix was dilated with a ring forcep. The uterine incision was closed with #1 Vicryl in a running locked fashion. Several [id number] #1 Vicryl sutures were needed to obtain hemostasis from some bleeding sinuses. The incision was examined and was found to be hemostatic. The left fallopian tube was followed out to the fimbriated end. The antimesenteric portion of the tube and the cornual insertion of the tube were clamped, sealed and transected with the LigaSure device Hemostasis was noted. The same procedure was performed on the contralateral side. Excellent hemostasis of all the pedicles was noted. The uterus was placed back into the peritoneal cavity and hemostasis was again confirmed. The rectus muscles were examined and any bleeding was Bovie cauterized. The parietal peritoneum and rectus muscles were closed en bloc with an 0 Vicryl running suture. The rectus fascia was examined and any bleeding was Bovie cauterized and the rectus fascia was closed with 1 Vicryl suture in a running standard fashion. The subcutaneous tissue was examining and any bleeding was Bovie cauterized. The subcutaneous tissue was reapproximated with 3-0 Vicryl suture. The skin was closed in a subcuticular fashion by the FACILITIES MANAGER with me present in the labor and delivery suite. I performed the remainder of the procedure with assistance. All sponge, lap, and needle counts were correct. The patient was taken to her room for recovery in a stable condition. Presentation: Positive for Vertex Amniotic Membrane Rupture Type: Artificial Amniotic Fluid Description: Clear Placental Delivery Description: Manual Removal Placenta Disposition: [facility] Specimen(s) Sent to Pathology: fallopian tubes Cord Vessel Description: 3 Vessels Cord Entanglement: None A Gender: Male (Jason) (1 minute): 9 (5 minute): 9 Delayed Cord Clamping: Yes Complications Complications: none Admit VTE Documentation VTE Present on Admission: No VTE Mechan Device Prophylaxis: SCD's VTE Pharm Prophylaxis Ordered: No Reason Prophylaxis Not Ordered: Procedure Not Indicated
[2023-06-13] MEDS: Oxytocin 15 Units/NS 250ml 15 UNITS/250 ML IV.SOLN 83 UNITS IV (12:40)
[2023-06-13] MEDS: Ketorolac 30 MG/ML Syringe IV ×2 (13:37→20:12)
[2023-06-13] MEDS: Lactated Ringers 1,000 ML 100 ML IV (15:36)
[2023-06-13 23:29] LABS: Pathology Specimen OB SEE PATHOLOGY REPORT
--- NOTE | 2023-06-14 00:25 | NURSING ---
This RN assumed care of patient and at 2139 from Stephen RIVERA.
[2023-06-14] MEDS: Ketorolac 30 MG/ML Syringe IV ×2 (02:07→08:07)
[2023-06-14 03:12] VITALS: BP 107/61; PULSE 71; RESP 14; TEMP 36.4; O2SAT 99
[2023-06-14] MEDS: Acetaminophen 500 MG Tablet 1000 MG PO ×5 (05:09→23:02)
[2023-06-14 05:28] LABS: Hematocrit 31.2 % (37-47); Hemoglobin 10.8 g/dL (12.0-15.0); Mean Corp Hgb Conc 34.6 g/dL (32-36); Mean Corpuscular Volume 89.7 fL (81-99); Mean Platelet Vol. 9.4 fl (6.2-12.0); Platelet Count 159 K/mm3 (150-450); RBC Distribution Width CV 14.7 % (11.6-14.6); RBC Distribution Width SD 47.2 fl (35.1-43.9); Red Blood Count 3.48 M/mm3 (4.2-5.4); White Blood Count 10.8 K/mm3 (4.4-11.0)
--- NOTE | 2023-06-14 07:22 | PCM.PN.CNM ---
Subjective Subjective Patient seen at bedside. Feeling good. Ambulating and voiding without difficulty. Pain is controlled. Lochia is minimal. with minimal support. Desires discharge home tomorrow. Objective Data Objective Data Vital Signs: Vital Signs Temp Pulse Resp BP Pulse Ox O2 Del Method 97.5 F L 71 14 107/61 99 Room Air 06/14/23 03:12 06/14/23 03:12 06/14/23 03:12 06/14/23 03:12 06/14/23 03:12 06/14/23 03:12 Oxygen Delivery Method Room Air Weight: 179 lb 14.355 oz Body Mass Index (BMI) 29.0 Intake & Output: Intake and Output for Last 24 Hours 06/12/23 06/13/23 06/14/23 23:59 23:59 23:59 Intake Total 1883.47 / 1883.47 845 / 845 Output Total 1800 / 1800 1300 / 1300 Balance 83.47 / 83.47 -455 / -455 Lab / Micro Data 06/14/23 05:10 Labs: Laboratory Results - last 24 hr 06/13/23 10:03: WBC 8.7, RBC 3.77 L, Hgb 11.5 L, Hct 33.3 L, MCV 88.3, MCH 30.5, MCHC 34.5, RDW Std Deviation 46.1 H, RDW Coeff of Radha 14.5, Plt Count 208, MPV 9.5, Immature Gran % (Auto) 1.300 H, Neut % (Auto) 76.4 H, Lymph % (Auto) 17.0 L, [place] % (Auto) 4.9, Eos % (Auto) 0.3, Baso % (Auto) 0.1, Absolute Neuts (auto) 6.6, Absolute Lymphs (auto) 1.47, Nucleated RBC % 0, Syphilis Total Ab Non-reactive, Blood Type A POSITIVE, Antibody Screen NEGATIVE 06/14/23 05:10: WBC 10.8, RBC 3.48 L, Hgb 10.8 L, Hct 31.2 L, MCV 89.7, MCH 31.0, MCHC 34.6, RDW Std Deviation 47.2 H, RDW Coeff of Radha 14.7 H, Plt Count 159, MPV 9.4 ROS Eyes Eyes: Denies blurry vision, change in vision or spots in vision ENT HEENT: Denies dizziness or headache(s) Cardiovascular Cardiovascular: Denies abdominal pain, chest pain or dyspnea Respiratory/Chest Respiratory/Chest: Denies cough, dyspnea, shortness of breath at rest or shortness of breath with exertion Gastrointestinal Gastrointestinal: Denies abdominal pain, diarrhea or vomiting Genitourinary Genitourinary: Denies change in urinary stream, difficulty urinating or dysuria Musculoskeletal Musculoskeletal: Reports none Integumentary Integumentary: Denies rash Neurologic Neurologic: Denies dizziness, headache(s), memory loss or weakness Physical Exam Narrative Dressing is dry and intact Const alert and no apparent distress General Appearance: cooperative and comfortable Exam Limitations: no limitations HEENT normocephalic Eyes General Eye: normal appearance of both eyes Neck full ROM General: normal visual inspection Chest Chest: symmetrical chest wall rise Resp normal respiratory effort and normal air movement Effort and Inspection: symmetric chest movement Auscultation: clear to auscultation bilaterally Cardio regular rate and regular rhythm GI normal to inspection, nondistended, normoactive bowel sounds Back/Spine normal ROM Extremity full ROM and no calf tenderness General Extremity: normal exam except as noted Skin no rashes or lesions noted Neuro CN's II-XII intact bilaterally Psych mental status grossly normal Capacity Legal Floor Renovator Reflex Medical hold order details:: IF a medical hold is selected below, a suggested order for a MEDICAL HOLD will reflex upon signing the document. Next of kin: [place] law dictates a PRIORITY LIST for identifying legal decision-maker/legal next of kin in the following order (LNOK): 1st: The patient?s legal guardian, if any 2nd: The patient's spouse (if status is questionable, consult Risk Management) 3rd: The patient?s adult child(abram) (majority, if multiple children) 4th: The patient?s parents 5th: The patient?s adult siblings (majority, if multiple children siblings) Assessment & Plan (1) Postoperative pain: (2) Previous delivery affecting : (3) Care and examination of lactating mother: PLAN: Plan POD 1 Repeat Section with Tubal ligation Pain control Continue ambulation support Evaluate for discharge tomorrow
[2023-06-14 07:59] VITALS: BP 111/63; PULSE 72; RESP 16; TEMP 36.5; O2SAT 99
[2023-06-14] MEDS: 0.9% Saline Lock 10 ML Syringe IV (08:07)
[2023-06-14] MEDS: Senna/Docusate Sodium 1 Tablet PO (11:07)
[2023-06-14] MEDS: Ibuprofen 600 MG Tablet PO ×2 (14:16→20:16)
[2023-06-14 14:18] VITALS: BP 107/69; PULSE 87; RESP 16; TEMP 36.9
[2023-06-14 19:40] VITALS: BP 113/69; PULSE 95; RESP 16; TEMP 36.8; O2SAT 97
[2023-06-14] MEDS: oxyCODONE 5 MG Tablet PO (21:48)
[2023-06-15] MEDS: Ibuprofen 600 MG Tablet PO ×2 (02:17→08:08)
[2023-06-15 02:19] VITALS: BP 97/56; PULSE 81; RESP 16; TEMP 36.4; O2SAT 98
[2023-06-15] MEDS: Acetaminophen 500 MG Tablet 1000 MG PO ×2 (06:08→11:28)
[2023-06-15 07:56] VITALS: BP 108/74; PULSE 87; RESP 16; TEMP 36.8; O2SAT 97
--- NOTE | 2023-06-15 11:11 | PCM.DC.SUM ---
Providers Date of Admission: 06/13/23 Primary Care Physician: Mariya Primary Care Phys Reason For Visit: REPEAT C SECTION Diagnosis Discharge Diagnosis (1) Postoperative pain: Status: Acute Code(s): G89.18 - Other acute postprocedural pain (2) Previous delivery affecting : Status: Acute Code(s): O34.219 - Maternal care for unspecified type scar from previous delivery (3) Care and examination of lactating mother: Status: Acute Code(s): Z39.1 - Encounter for care and examination of lactating mother (4) S/P repeat low transverse : Status: Acute Code(s): Z98.891 - History of uterine scar from previous surgery Medications at Discharge Home Medications 1 tab PO/SL DAILY 01/02/22 famotidine 40 mg tablet 20 mg PO Q12H heartburn 06/13/23 acetaminophen 500 mg tablet 1,000 mg (2 x 500 mg) PO Q6 #0 tabs 06/15/23 ibuprofen 600 mg tablet 600 mg PO Q6H #0 tabs 06/15/23 oxycodone 5 mg tablet 5 mg PO Q8H PRN PRN Pain Score 4-10 2 days #6 tabs 06/15/23 Hospital Course Operations section Summary of Care Provided Minutes Spent on Discharge: 15 Weight / BMI Weight Weight: 179 lb 14.355 oz Body Mass Index (BMI) 29.0 ABG / Lab / Microbiology Data 06/14/23 05:10 D/C Instructions Discharge Diet: No restrictions Discharge Activity: May Shower May resume sexual activity in: 6 weeks Weight Bearing Status: Weight bearing as tolerated Call your doctor if your incision/area has: Continuous Slow Oozing, Sudden Increased Bleeding, Increased Pain/ Swelling, Increased Redness, Foul Smelling Discharge and Swelling at the incision site Call your doctor if you observe: Fever of 101 or Higher, Coldness, Increased Pain, Change in Color, Inability to urinate, Inability to have a bowel movement, Using more than 1 pad per hour, Shortness of breath, Dizziness, Fainting spells, Chest pain, Increased palpitations (irregular heartbeat), Calf discomfort and Uncontrolled pain Suture Line Care: Avoid Pulling/Pushing and Avoid Pinching/Bending Remove Dressing in: 1 week Cleanse incision/area with: Soap & Water Please Follow Up With: Danii Anderson MD When: Follow up in 2 and 6 weeks for visits. Meaningful Use Info Meaningful Use Diagnoses (Choose all that apply): None applicable Discharge Plan Admission Admit Date/Time: 06/13/23 09:35 Primary Reason for Your Visit: section Attending Provider: Danii Anderson Primary Care Provider: Care Physician,No Primary Discharge Orders/Prescriptions Prescriptions: New acetaminophen 500 mg Tablet 1,000 mg PO Q6 Qty: 0 0RF ibuprofen 600 mg Tablet 600 mg PO Q6H Qty: 0 0RF oxycodone 5 mg Tablet 5 mg PO Q8H PRN MDD 15mg PRN (Reason: Pain Score 4-10) 2 Days Qty: 6 0RF Rx Instructions: PRN pain Continued 1 tab PO/SL DAILY famotidine 40 mg tablet 20 mg PO Q12H Patient Comments: TAKE 1/2 TABLET TWICE A DAY BY MOUTH Discontinued aspirin 81 mg capsule 81 mg PO DAILY Referrals / Follow Up: Care Physician,No Primary [Primary Care Provider] - Disposition Disposition (needs filled in before D/C Order can be placed): Home, Self Care
--- NOTE | 2023-06-15 11:12 | PCM.PN.OB ---
Subjective Subjective Denies complaints Objective Data Objective Data Vital Signs: Vital Signs Temp Pulse Resp BP Pulse Ox O2 Del Method 98.3 F 87 16 108/74 97 Room Air 06/15/23 07:56 06/15/23 07:56 06/15/23 07:56 06/15/23 07:56 06/15/23 07:56 06/15/23 07:56 Oxygen Delivery Method Room Air Weight: 179 lb 14.355 oz Body Mass Index (BMI) 29.0 Intake & Output: Intake and Output for Last 24 Hours 06/13/23 06/14/23 06/15/23 23:59 23:59 23:59 Intake Total 1883.47 / 1883.47 845 / 845 Output Total 1800 / 1800 1300 / 1300 Balance 83.47 / 83.47 -455 / -455 Lab / Micro Data 06/14/23 05:10 Physical Exam Const alert, oriented x3 and no apparent distress HEENT normocephalic GI soft to palpation, non-tender and non-distended GI Narrative: fundus firm, mid & below umbilicus Incision - bandage c/d/i Extremity normal to inspection and no calf tenderness Assessment & Plan (1) S/P repeat low transverse : COMMENT: POD#2 PLAN: Plan D/c home
[2023-06-15] MEDS: Influenza Virus Vac Quad 23-24 60 MCG/0.5 ML SYRINGE IM (11:28)
[2023-06-15] MEDS: Senna/Docusate Sodium 1 Tablet PO (11:28)
== END 2023-06-15 11:55 | disposition home or self-care (01) | DRG 785 ==
PROVIDERS: Admitting Provider Obstetrics & Gynecology; Visit Provider Obstetrics & Gynecology
PROC: 10D00Z1 Extraction of Products of Conception, Low, Open Approach (ICD-10-PCS; CPT 59514; principal; 2023-06-13 11:45)
DX: O34.211 Maternal care for low transverse scar from previous cesarean delivery (principal); Z30.2 Encounter for sterilization; Z3A.39 39 weeks gestation of pregnancy; Z37.0 Single live birth; Z79.82 Long term (current) use of aspirin; Z79.899 Other long term (current) drug therapy
CPT/HCPCS: 59050; 85025; 85027; 86780; 86850; 86900; 86901; 88302; 88305; 99221; J7120; 90686; A4216; G0378; J2405